=== PATIENT | male | born 1940 | race Caucasian/White ===

== ENCOUNTER 2023-03-22 22:00 | Inpatient (IN) | payer MEDICARE, OTHER, SELFPAY ==
[2023-03-22 18:23] VITALS: BP 109/51
[2023-03-22 19:26] LABS: % Basophils 0.5 % (0-2); % Eosinophils 7.2 % (0-6); % Immature Granulocytes 0.6 % (0-0.5); % Lymphocytes 6.6 % (20.5-51.1); % Neutrophils 78.1 % (42.2-75.2); Absolute Eosinophils 0.6 10^3/uL (0-0.7); Absolute Immature Granulocytes 0.1 10^3/uL (0-0.05); Absolute Lymphocytes 0.6 10^3/uL (1.2-3.4); Absolute Monocytes 0.6 10^3/uL (0.1-0.6); Absolute Neutrophils 6.7 10^3/uL (1.4-6.5); Hematocrit 37.4 % (39.0-52.0); Mean Corp Hgb Conc. 34.8 g/dL (33.0-37.0); Mean Corpuscular Hgb 33.3 pg (27.0-31.0); Mean Corpuscular Volume 95.9 fL (80.0-94.0); Nucleated Red Blood Cells % 0 % (-); Platelet Count 174 10^3/uL (130-400); White Blood Cell Count 8.5 10^3/uL (4.8-10.8)
[2023-03-22 19:36] VITALS: BP 117/68
[2023-03-22 19:43] LABS: APTT 42.1 Sec (23.4-35.0); INR 2.36; PT 26.2 Sec (11.4-14.6)
[2023-03-22 19:52] LABS: ALT (SGPT) 33 U/L (0-50); AST (SGOT) 35 U/L (17-59); Albumin 4.3 g/dl (3.5-5.0); Alkaline Phosphatase 119 U/L (38-126); Blood Urea Nitrogen 45 mg/dl (9-20); Calcium 8.8 mg/dl (8.4-10.2); Carbon Dioxide 24 mmol/L (22-30); Chloride 102 mmol/L (98-107); Glomerular Filtration Rate 38.6; Glucose 126 mg/dl (70-99); Potassium 4.1 mmol/L (3.5-5.1); Sodium 138 mmol/L (135-145); Total Bilirubin 1.2 mg/dl (0.2-1.3)
[2023-03-22 20:11] VITALS: BMI 23.6
--- NOTE | 2023-03-22 20:17 | ED.GENMED ---
History of Present Illness
General
Chief Complaint: Musculo-Skeletal Complaint
Source: patient
Exam Limitations: none
Time Seen by Provider: 03/22/23 19:35
Travel History
Have you had any contact with someone who has COVID-19?: No
Do you have any symptoms of coronavirus? Fever > 100 degrees, chills, cough, shortness of breath, sore throat, loss of taste or smell, muscle aches, or headache?: No
History of Present Illness
History of Present Illness:
This is a 82 year old male that comes in with c/o right knee pain. State that he was here with knee pain on March 09. States that they did X-rays and was told to follow up with the exterior interior specialist. Patient saw Dr Bautista and he is to have
a knee replacement on April. States that today he started with right knee pain and he can't bend the knee. Denies any falls or injury to the leg. States that he is always dizzy. Denies any fever, chills, chest pain, SOB, abd pain, nausea,
vomiting, diarrhea, headache, urinary burning.
Past History
Past History
ED Past Medical History: Arrthythmia (afib) and Other (BPH)
ED Past Surgical History: Orthopedic (Left knee replacement, right hip replacement. Right shoulder surgery) and Other (hernia sx)
Social History
Tobacco: Non-smoker
Alcohol: Occasional
Drug: None
Personal:
Living: with family
Employment: Retired
Family History
Family History: Other (n/c)
Review of Systems
Review of Systems
All Other Systems: ROS reviewed and negative except as documented in HPI and ROS
Constitutional: Reports no symptoms; Denies fever or chills
EENT: Reports no symptoms
Respiratory: Denies cough or trouble breathing
Cardiac: Reports no symptoms; Denies chest pain
ABD/GI: Denies abdominal pain, nausea, vomiting or diarrhea
: Reports no symptoms; Denies dysuria, frequency or urgency
Musculoskeletal: Reports joint pain (Right knee pain with leg swelling)
Skin: Reports no symptoms
Neurological: Reports dizzy; Denies headache
Psychiatric: Reports no symptoms
Phy Exam
General Physical Exam
General Presentation: no apparent distress
General age: appears stated age
General Skin: warm and dry
General Habitus: elderly
General Mental: alert
General Hydration: appears well hydrated
ENT Exam
ENT Exam: TM's normal, pharynx normal and neck supple
Eye Exam
Eye Exam: EOMI
Cardiovascular Exam
Cardiovascular Exam: normal peripheral pulses, irregularly irregular and other (Murmur)
Pulmonary Exam
Pulmonary Exam: lungs clear, no respiratory distress, no rales, chest non tender, no crackles, no rhonchi, no wheezing and no cough
Gastrointestinal Exam
Gastrointestinal Exam: normal bowel sounds, non tender, soft, no organomegaly, no pulsatile mass and non distended
Musculoskeletal Exam
Musculoskeletal Exam: joint swelling (Right knee swelling into thigh. ) and other (Effusion palpable)
Skin Exam
Skin Exam: other (Contusion on the medial and lateral thigh down to knee with posterior contusion passing the right knee)
Psychiatric Exam
Psychiatric Exam: normal mood/affect
Course
Orders/Labs/Results
Orders:
Orders
03/22/23 18:26
CR Knee - Right 1 Or 2 Views Urgent
Comment:
Reason For Exam: pain, swelling, decreased ROM
03/22/23 19:19
Complete Blood Count/With Diff Urgent
Comprehensive Metabolic Panel Urgent
PTT Urgent
Prothrombin Time Urgent
03/22/23 20:16
US Periph Venous LOWER Ext RT Urgent
Comment:
Reason For Exam: Swelling contusions
Abnormal Lab Results
03/22/23
19:19
RBC 3.90 L 10^6/uL
(4.70-6.10)
Hct 37.4 L %
(39.0-52.0)
MCV 95.9 H fL
(80.0-94.0)
MCH 33.3 H pg
(27.0-31.0)
RDW 15.0 H %
(11.5-14.5)
Abs Immat Gran (auto) 0.1 H 10^3/uL
(0-0.05)
Absolute Neuts (auto) 6.7 H 10^3/uL
(1.4-6.5)
Absolute Lymphs (auto) 0.6 L 10^3/uL
(1.2-3.4)
Immature Gran % 0.6 H %
(0-0.5)
Neutrophils % 78.1 H %
(42.2-75.2)
Lymphocytes % 6.6 L %
(20.5-51.1)
Eosinophils % 7.2 H %
(0-6)
PT 26.2 H Sec
(11.4-14.6)
APTT 42.1 H Sec
(23.4-35.0)
BUN 45 H mg/dl
(9-20)
Creatinine 1.7 H mg/dL
(0.7-1.3)
Glucose 126 H mg/dl
(70-99)
03/22/23 19:19
03/22/23 19:19
Anemia, PT 26.2 with INR 2.36, PTT 42.1, Chronic renal insufficiency, Glucose nonfasting.
Vital Signs
Initial and Last Documented VS:
Initial Vital Signs
Temp Pulse Resp BP Pulse Ox
97.7 F 72 16 109/51 99
03/22/23 18:23 03/22/23 18:23 03/22/23 18:23 03/22/23 18:23 03/22/23 18:23
Last Documented Vital Signs
Temp Pulse Resp BP Pulse Ox
97.7 F 71 20 117/68 98
03/22/23 19:36 03/22/23 19:36 03/22/23 19:36 03/22/23 19:36 03/22/23 20:13
MDM/Problems Addressed
Differential Diagnosis Includes:
right knee effusion. Compartment syndrome
MDM/Problems Addressed:
This is a 82 year old male that comes in with c/o right knee pain and swelling. Patient states that the leg is not only swollen but he has bruising of the entire thigh.
Will get labs. X-ray and US.
Back into see patient. Explained that the US is negative for DVT. His X-rays of the knee shows the arthritis and an effusion. Unsure why patient has significant contusion of the leg. Explained that since he is own Coumadin it would not be advised to
drain the knee at this time. He will be admitted for further evaluation. Hospitalist and Orthopedics notified.
Chronic conditions affecting care: Other (atrial fib on blood thinners)
Acute Exacerbation and/or Progression of Chronic Illness:
NA
*Radiology
Radiology exam reviewed: radiology read reviewed (US=No sonographic evidence for right lower extremity deep venous thrombosis Knee X-ray-No acute fracture or dislocation. Severe arthrosis of the right knee with meniscal chondrocalcinosis. Moderate
knee joint effusion. )
*Pulse Oximetry
Patient hypoxic: no
*EKG
Interpreted by ED Provider?: NA
Rate: EKG- N/A
*Supervisor Files Interpretation
Rate: Supervisor Files- N/A
*Critical Care Note
Total Time (30-74mins, 75-104mins- exclusive of procedures): Not Applicable
ED Attending Note
-
Portions of this chart may have been created with voice recognition software.� Occasional wrong word or��sound alike� substitutions may have occurred due to the inherent limitations of voice recognition software.
Discharge Plan
Departure
Patient Disposition: Admit
Date of Disposition: 03/22/23
Time of Disposition: 21:07
Admit to: Med/Surg
Presentation/result/management discussed w/ accepting MD/DO: Hospitalist
Patient with high blood pressure during this ER visit?: No
Condition: Good
Covid-19: Not Applicable
Discharge Problem:
Acute pain of right knee, Effusion of right knee, Severe contusion right thigh, Ambulatory dysfunction
Prescriptions:
No Action
diltiazem HCl [Cartia XT] 180 MG capsule,extended release 24hr
180 mg PO DAILY
warfarin [Jantoven] 4 MG tablet
2 mg PO .EVERYOTHER DAY
furosemide 20 MG tablet
20 mg PO PRN PRN (Reason: LEG SWELLING)
loratadine 10 MG tablet
10 mg PO DAILY
dutasteride 0.5 MG capsule
0.5 mg PO DAILY
alfuzosin 10 MG tablet extended release 24 hr
10 mg PO DAILY
mesalamine [Apriso] 0.375 GM capsule,extended release 24hr
4 cap PO DAILY
[id number] [Centrum Silver Men] 1 EACH tablet
1 ea PO DAILY
Fluticasone Propionate
50 mg inhalation DAILY
Patient Comments:
2 SPRAYS DAILY
Probiotic Colon Support
1 tab PO DAILY
warfarin [Jantoven] 4 MG tablet
4 mg PO Q48H
Patient Comments:
pt alternates every other day with Coumadin 2mg.
doxycycline hyclate 100 MG capsule
100 mg PO Q12 Qty: 14 0RF
oxycodone 5 mg capsule
5 mg PO Q6H PRN (Reason: Pain) Qty: 10 0RF
Referrals:
NONE,* [Active] -
Interventions
Interventions:
*Risk Screen - Suicide Last Done: 03/22/23 18:23
*General Assessment Last Done: 03/22/23 19:39
*Neglect/Abuse Screening Last Done: 03/22/23 18:23
ED- Fall Risk Assessment Last Done: 03/22/23 19:52
*ED COVID-19 Vaccine History Last Done: 03/22/23 18:23
ED-Musculoskeletal Assessment Last Done: 03/22/23 19:40
--- NOTE | 2023-03-22 21:25 | HPS.HSE ---
Addendum entered and electronically signed by Robert Carrera DO 03/22/23 22:38:
Patient seen and examined independently. Agree with findings and plan as set forth by SYD Gilliam.
Patient is an 82y M with PMH significant for A-Fib and BPH who presents to ED complaining of R knee pain and swelling. Patient states that he drove a long distance (> 140 miles) 2 weeks ago and his pain started shortly thereafter. He denies any
fall, injury, trauma, etc. He was seen here in the ED on 03/06 and referred to Ortho. Patient was seen in the Ortho office and notes that he had a 'shot' in the R knee - not certain whether this was steroid or just pain medication. He was told
that he would need a TKA and this was scheduled for April.
He states that his symptoms have progressed regardless and he presented to the ED this evening for evaluation.
He states that he cannot stand / bear weight without significant pain.
Ass:
Right Knee Pain
DJD / Joint Effusion
Permanent Atrial Fibrillation
RAMAKRISHNA on CKD III
BPH
DM-II
Chronic HFpEF
Ulcerative Colitis
Plan:
Admit for further evaluation and treatment.
Continue efforts at pain control.
No fever, leukocytosis, etc to suggest septic arthritis.
Ortho consulted for evaluation in the AM.
Hold further Coumadin acutely given ecchymosis.
Follow for clinical improvement.
PT / OT evaluations.
No evidence of volume overload on exam.
Hold Farxiga and decrease furosemide by 1/2.
Follow for improvement in renal function.
Monitor I/Os, daily weights, etc.
Continue other home medications.
Original Note:
Family Physician
-
Family Physician: Roby Coffman DO
Chief Complaint
-
right knee pain
History of Present Illness
82 year old male with PMH for atrial fib, BPH, UTI presented to us with right knee pain ,swelling for past 12 days. patient was evaluated in ER on 03/06/2023 and was asked to follow up with orthopedics as outpatient. Patient saw Dr Bautista and he
is to have a knee replacement on April. States that today he started with right knee pain and he can't bend the knee. he took Tylenol with no relief in his symptoms. Denies any falls or injury to the leg. bruising on his right thigh for past
1 2days. Denies any fever, chills, chest pain, SOB, abd pain, nausea, vomiting, diarrhea, headache, urinary burning. patient finished the course of abx for UTI today.
admitting for further management.
Medical History
Past Medical History
Past Medical History: Reports Other
Additional Past Medical History:
BPH
atrial fib
Past Surgical History: Reports Other
Additional Past Surgical History:
left knee replacement
right hip replacement
right shoulder surgery
hernia surgery
Social History
Tobacco: Former Smoker
Alcohol: None
Drug: None
Family History
Family History: Not pertinent
Allergies / Home Medications
Allergies reflects when Allergies were last updated in [facility].
Home Medications with original date entered in [facility]
Allergy/Medication List:
Allergies
Allergy/AdvReac Type Severity Reaction Status Date / Time
adhesive tape Allergy Rash Verified 03/06/23 10:57
enviromental allergies Allergy Unknown Uncoded 03/06/23 10:57
Home Medications
Fluticasone Propionate 50 mg inhalation DAILY 04/30/17
diltiazem HCl 180 mg capsule,extended release 24 hr (Cartia XT) 180 mg PO DAILY 04/30/17
dutasteride 0.5 mg capsule 0.5 mg PO DAILY 04/30/17
loratadine 10 mg tablet 10 mg PO DAILY 04/30/17
mesalamine 0.375 gram capsule,extended release 24 hr (Apriso) 4 cap PO DAILY 04/30/17
warfarin 4 mg tablet (Jantoven) 2 mg PO .EVERYOTHER DAY 04/30/17
warfarin 4 mg tablet (Jantoven) 4 mg PO Q48H anticoag 05/01/17
cyanocobalamin (vitamin B-12) 1,000 mcg tablet 1,000 mcg PO DAILY 03/22/23
dapagliflozin propanediol 10 mg tablet (Farxiga) 10 mg PO DAILY 03/22/23
furosemide 80 mg tablet 80 mg PO BID 03/22/23
sildenafil 25 mg tablet 25 mg PO DAILY PRN intercourse 03/22/23
spironolactone 25 mg tablet 25 mg PO DAILY 03/22/23
tamsulosin 0.4 mg capsule 0.4 mg PO DAILY 03/22/23
vitamins A,C,Y-yqxo-qjvwzf 2,148 mcg-113 mg-45 mg-17.4 mg tablet (PreserVision AREDS) 1 tab PO BID 03/22/23
Review of Systems
-
Constitutional: Reports No Symptoms
EENT: Reports No Symptoms
Respiratory: Reports No Symptoms
Cardiac: Reports No Symptoms
Abdomen/GI: Reports No Symptoms
: Reports No Symptoms
Musculoskeletal: Reports Joint Pain (right knee pain, swelling)
Skin: Reports No Symptoms
Neurological: Reports No Symptoms
Endocrine: Reports No Symptoms
Hematologic/Lymphatic: Reports No Symptoms
Psych: Reports No Symptoms
Physical Exam
Vital Signs
Vital Signs
Temp Pulse Resp BP Pulse Ox
97.7 F 71 20 117/68 98
03/22/23 19:36 03/22/23 19:36 03/22/23 19:36 03/22/23 19:36 03/22/23 20:13
Physical Exam
General: Well Developed, Well Nourished and No Apparent Distress
HEENT: NormoCephalic, Moist mucous membranes and Atraumatic
Respiratory: Clear
Cardiac: S1/S2 and Regular Rhythm; No Murmur or Rub
GI: Soft, Non Tender, Non Distended and Normal Bowel Sounds; No Organomegaly
Rectal: Deferred by Provider
Musculoskeletal: No Clubbing, No Cyanosis, No Edema and Other (right knee swelling, brusising pain)
Skin: No Rash
Neuro: AO x 3 and Nonfocal/grossly intact
Psych: Calm
Laboratory Results
-
03/22/23 19:19
03/22/23 19:19
Laboratory Results
PT 26.2 Sec (11.4-14.6) H 03/22/23 19:19
INR 2.36 03/22/23 19:19
APTT 42.1 Sec (23.4-35.0) H 03/22/23 19:19
Total Bilirubin 1.2 mg/dl (0.2-1.3) 03/22/23 19:19
AST 35 U/L (17-59) 03/22/23 19:19
ALT 33 U/L (0-50) 03/22/23 19:19
Alkaline Phosphatase 119 U/L (38-126) 03/22/23 19:19
Data Reviewed
-
CT Scan: Report Reviewed by me
Lab Data: Labs Reviewed by me
Impression/Plan
-
#right knee pain/ambulatory dysfunction/effusion
-US LE with No sonographic evidence for right lower extremity deep venous thrombosis.
-knee x ray with No acute fracture or dislocation.Severe arthrosis of the right knee with meniscal chondrocalcinosis.Moderate knee joint effusion.
-oxy prn for pain
-orthopedics consulted
#acute kidney injury on CKD stage 3
-cr 1.7
-ctm
#Atrial fibrillation unknown type
=INR 2.36
-hold Coumadin
-cartia continued
-obtain EKG
# Benign prostatic hypertrophy
-We will continue the Avodart and Flomax
#Type 2 Dm
-hold Farxiga
-siding scale
#hxt of CHF
-not in acute exacerbation
--Lasix 40mg bid instead of 80mg bid
-spironolactone continued
-daily weight
-strict I &O
# Ulcerative colitis. We will continue the mesalamine.
#DVT prophylaxis
-scd
#CODE status
-DNR
[2023-03-22] MEDS: PERCOCET 5/325 1 TABLET PO (22:01)
[2023-03-22] MEDS: ZOFRAN ODT (ORALLY DISINTEGRATING) 4 MG PO (22:02)
[2023-03-22 22:05] VITALS: BP 117/64
[2023-03-22 23:08] VITALS: BMI 23.3
[2023-03-22 23:10] VITALS: BP 141/68
[2023-03-23 03:37] VITALS: BP 109/51
[2023-03-23 03:44] VITALS: BMI 23.3
[2023-03-23 07:08] LABS: INR 2.75; PT 29.5 Sec (11.4-14.6)
[2023-03-23 07:13] LABS: Hemoglobin 11.1 g/dL (13.0-18.0); Mean Corp Hgb Conc. 34.7 g/dL (33.0-37.0); Mean Corpuscular Hgb 34.6 pg (27.0-31.0); Mean Corpuscular Volume 99.7 fL (80.0-94.0); Mean Platelet Volume 9.6 fL (7.4-10.4); Platelet Count 161 10^3/uL (130-400); Red Blood Cell Count 3.21 10^6/uL (4.70-6.10); Red Cell Dist. Width 14.8 % (11.5-14.5); White Blood Cell Count 7.3 10^3/uL (4.8-10.8)
[2023-03-23 07:17] LABS: Glucose - Point of Care 115 mg/dl (70-99)
[2023-03-23 07:19] VITALS: BP 112/49
[2023-03-23] MEDS: ROXICODONE 5 MG PO ×2 (07:26→15:11)
[2023-03-23 07:32] LABS: Blood Urea Nitrogen 41 mg/dl (9-20); Calcium 8.4 mg/dl (8.4-10.2); Carbon Dioxide 23 mmol/L (22-30); Chloride 105 mmol/L (98-107); Estimated Creatinine Clearance 38 ml/min; Glomerular Filtration Rate 44.6; Glucose 88 mg/dl (70-99); HDL Cholesterol 40 mg/dl; LDL Cholesterol, Calculated 73 mg/dl; Potassium 4.1 mmol/L (3.5-5.1); Sodium 138 mmol/L (135-145); Total Cholesterol 123 mg/dl (50-199); Triglyceride 54 mg/dl (10-149); Very Low Density Lipoprotein 10 mg/dl (0-30)
--- NOTE | 2023-03-23 07:48 | W.PN.UPDATE ---
Update Note
Progress Note Update
Pt seen and chart reviewed
I attempted aspiration but only very small amount of dark blood obtained
I suspect clotted knee joint hematoma (suspect secondary to Coumadin)
I spoke with his surgeon Dr. Bautista as he has upcoming TKR in April
Dr. Bautista requests conservative tx---PT with A/P ROM exercises, hold anticoagulants, have F/U with Dr. Bautista upon DC
Thanks
GGMD
[2023-03-23 08:42] LABS: Glycohemoglobin (HgbA1c) 5.4 % (4.0-5.6)
[2023-03-23] MEDS: CARDIZEM CD 180 MG PO (08:56)
[2023-03-23] MEDS: PROSCAR 5 MG PO (08:56)
[2023-03-23] MEDS: FLOMAX 0.400000000000000022 MG PO (08:56)
[2023-03-23] MEDS: OCUVITE SOFTGEL 1 CAP PO (08:56)
[2023-03-23] MEDS: ALDACTONE 25 MG PO (08:57)
[2023-03-23] MEDS: LASIX 40 MG PO ×2 (08:57→15:12)
--- NOTE | 2023-03-23 09:56 | CON.CAR ---
Addendum entered and electronically signed by Darinel Mcdermott MD 03/23/23 16:16:
82 yo male with PMH of permanent A fib on warfarin admitted with right knee effusion--hemorrhagic. We are consulted for warfarin management. Patient offers no cardiac complaints. Exam with irregular rhythm, III/ systolic murmur at apex, + edema
of right knee. Tele: A fib 70s.
I discussed the management with orthopedics and internal medicine. We will hold warfarin for 4 days, the resume. There is an eventual plan for TKA. He reports he has office follow up with us this week.
Original Note:
Consultation
Consultation Request
Date/Time Consultation Requested: 03/23/23816
Date/Time Consultation Performed: 03/23/23939
Requesting Provider: Dr. Joseph
Performing Provider: Cydney VELARDE for Dr. Mcdermott
Reason for Consultation: AFIB on warfarin, with knee joint hematoma
Medical History
-
Chief Complaint: Right knee swelling, pain, ecchymosis
History of Present Illness:
82 y/o male with permanent AFIB on warfarin, HFpEF, moderate to severe TR, and OA right knee with plan for upcoming surgery (right knee replacement April [address] Bautista). 13 days ago, he was driving back from [place], [place] and noted
that his RLE was stiff, painful, swollen. He went to the orthopedic office and had an injection 03/07/23. He has noted continued pain, swelling, ecchymosis and returned to the ER, where XR showed moderate knee joint effusion. He has lost about 30 lbs
over the past 6 months with lower appetite and is looking into this with his PCP. He also has CKD and follows with nephrology. He has thrombocytopenia and saw heme, but platelets currently WNL.
Past Medical History
Past Medical History: Arrhythmias (permanent AFIB), CHF (HFpEF) and Valvular Disease (moderate to severe TR)
Social History
Tobacco: Non-Smoker
Alcohol: Occasional
Family History
Family History: Reviewed & Not Pertinent
Allergies / Home Medications
Allergy/AdvReac Type Severity Reaction Status Date / Time
adhesive tape Allergy Rash Verified 03/06/23 10:57
enviromental allergies Allergy Unknown Uncoded 03/06/23 10:57
Medication Instructions Recorded Confirmed Type
diltiazem HCl 180 mg 180 mg PO DAILY 04/30/17 03/22/23 History
capsule,extended release 24 hr
(Cartia XT)
dutasteride 0.5 mg capsule 0.5 mg PO DAILY 04/30/17 03/22/23 History
fluticasone propionate 50 1 spray intranasal DAILY ##0 04/30/17 03/22/23 History
mcg/actuation nasal
spray,suspension
loratadine 10 mg tablet 10 mg PO DAILY 04/30/17 03/22/23 History
mesalamine 0.375 gram 1.5 g PO DAILY 04/30/17 03/22/23 History
capsule,extended release 24 hr
(Apriso)
warfarin 4 mg tablet (Jantoven) 2 mg PO TUTHSA 04/30/17 03/22/23 History
warfarin 4 mg tablet (Jantoven) 4 mg PO SUMOWEFR anticoag 05/01/17 03/22/23 History
cyanocobalamin (vitamin B-12) 1,000 mcg PO DAILY 03/22/23 03/22/23 History
1,000 mcg tablet
dapagliflozin propanediol 10 mg 10 mg PO DAILY 03/22/23 03/22/23 History
tablet (Farxiga)
furosemide 80 mg tablet 80 mg PO BID 03/22/23 03/22/23 History
sildenafil 25 mg tablet 25 mg PO DAILY PRN intercourse 03/22/23 03/22/23 History
spironolactone 25 mg tablet 25 mg PO DAILY 03/22/23 03/22/23 History
tamsulosin 0.4 mg capsule 0.4 mg PO DAILY 03/22/23 03/22/23 History
vitamins A,C,P-zuie-yautdw 2,148 1 tab PO BID 03/22/23 03/22/23 History
mcg-113 mg-45 mg-17.4 mg tablet
(PreserVision AREDS)
Review of Systems
-
History Source: Patient
All other systems: Negative unless noted
Constitutional: Weight Loss
Musculoskeletal: Joint Pain and Joint Swelling
Physical Exam
Vital Signs
Temp Pulse Resp BP Pulse Ox
97.7 F 67 18 112/49 99
03/23/23 07:19 03/23/23 08:56 03/23/23 07:19 03/23/23 08:57 03/23/23 07:19
Lab Results
03/23/23 05:44
03/23/23 05:44
Physical Exam
General: Well Developed and No Apparent Distress
HEENT: Normocephalic and Anicteric
Respiratory: Clear and Non Labored Respirations
Cardiac: Irregular Rhythm
Musculoskeletal: Other (knee swelling)
Skin: Warm, Dry and Other (RLE with ecchymosis, swelling of knee)
Neuro: AO x 3
Psych: Calm
Impression / Plan
-
Knee pain, swelling, effusion, ecchymosis:
-denies any recent trauma, known OA, recent injection as noted
-Management per ortho. Dr. Hernández's note reviewed- aspiration attempted, but only very small amount of dark blood obtained and he suspected clotted knee joint hematoma. Patient has surgery planned Apr 19 and surgeon requests conservative
management, which includes holding anticoagulants for now.
Permanent AFIB:
-stable, rate-controlled
-continue diltiazem
-patient on warfarin and checks levels weekly and reports INR's within range. Warfarin now held for above. Will need to discuss plan with ortho regarding warfarin hold time as above. His [id number] score is 3 for age and CHF.
HFpEF:
-appears euvolemic
-remains on spironolactone, Farxiga, and furosemide
-no SOB
Data Reviewed
-
EKG: Tracing Personally Visualized and interpreted (AFIB 68 BPM 05/06/22) and Other (updated EKG ordered.)
Radiology: Report Reviewed by me (knee XR: Severe arthrosis of the right knee with meniscal chondrocalcinosis, Moderate knee joint effusion.)
Medical Tests (Nuc Med, Echo etc): Report Reviewed by me (echo 04/12/22: Normal biventricular size and systolic function without regional wall motion abnormality. Estimated LVEF 55-60%. Enlarged right ventricular size. Normal right ventricular
systolic function. Moderate/severe tricuspid regurgitation. Normal PASP. Severely dilated right atrium. Modera) and Other (stress echo 12/07/22: No ECG or echocardiographic evidence of myocardial ischemia to 7 METS and 80% max. predicted heart
rate. Low risk stress echocardiogram. Normal LVEF. No prior study available for comparison.)
Labs: Labs Reviewed by me
[2023-03-23 10:20] VITALS: BP 85/69; BP 95/54; PULSE 79; PULSE 86; O2SAT 100
[2023-03-23 11:15] VITALS: BP 103/49
[2023-03-23 12:20] LABS: Glucose - Point of Care 97 mg/dl (70-99)
[2023-03-23 12:50] VITALS: BP 85/69; BP 95/54; PULSE 75; PULSE 86
--- NOTE | 2023-03-23 14:51 | CM ---
CM reviewed medical records. CM met with patient in room. Patient confirmed demographics. Patient lives with in a single story home in a [place] and [place] community. Patient has had a history of VN after a previous TKR. Patient has been at [facility] and
stated that he signed out AMA. Patient has a cane and walker for ambulation at home. Patient is active with his PCP. Patient's uses [facility] for medication services.
PLAN: home with outpatient PT.
[2023-03-23 16:15] VITALS: BP 110/47
--- NOTE | 2023-03-23 16:56 | W.PN.HOSP.TC ---
Addendum entered and electronically signed by Ildefonso Joseph MD 03/23/23 17:54:
Correction: patient mentioned that he does NOT have Diabetes Mellitus
Original Note:
Today's Communication/Plan
-
Discharge today
Assessment / Plan
Assessment / Plan
Physical Exam
General: Well Developed and No Apparent Distress
HEENT: Normocephalic and Anicteric
Respiratory: Clear and Non Labored Respirations
Cardiac: Irregular Rhythm
Musculoskeletal: Other (right knee swelling with band-aid/dressing present). Distal RLE pulses intact and 2+.
Skin: Warm, Dry and Other (RLE with ecchymosis, swelling of knee)
Neuro: AO x 3
Psych: Calm
Assessment/Plan
#Right knee pain, swelling, effusion, ecchymosis and suspected right knee hematoma (hematoma suspected to be secondary to Coumadin)
-denies any recent trauma, known OA, recent injection as noted
-ultrasound of the right lower extremity with no sonographic evidence for right lower extremity deep venous thrombosis.
-Management per ortho, follow-up with orthopedics surgeon outpatient. Dr. 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
hematoma. Dr. Romulo Bautista (patient's orthopedic's surgeon) recommended no surgery (to drain hematoma) at this time due to high recurrence and upcoming total knee replacement on April 19, 2023, and surgeon
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
-Please see Dr. Romulo Bautista in the next 2 to 3 days
#Permanent Atrial Fibrillation
-stable, rate-controlled
-continue diltiazem
-patient on warfarin and checks levels weekly and reports INR's within range. Warfarin now held for above. Will need to discuss plan with ortho regarding warfarin hold time as above. His [id number] score is 3 for age
and CHF.
-Follow-up with Dr. Mcdermott's office outpatient
#Heart Failure with Preserved Ejection Fraction
-Euvolemic at this time
-Continue spironolactone, Farxiga
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
#Acute Kidney Injury on Chronic Kidney Disease Stage 3
-Please recheck your Basic Metabolic Labs outpatient in the next 2 to 3 days
# Benign prostatic hyperplasia
-Continue the Avodart and Flomax
#Type 2 Diabetes Mellitus
-Continue Farxiga
#Ulcerative Colitis
-Continue Mesalamine
More than 30 minutes spent in discharge including
Final examination of the patient
Summarizing hospital stay
Instructions for continuing care to all relevant caregivers
Preparation of discharge records, prescriptions, and referral forms
Total time spent (in minutes): 38
Anticipated Discharge: Today
Subjective/Interval History
-
Date of Service: March 23, 2023
Objective Data
-
Labs:
Laboratory Results
03/23/23
05:44
WBC 7.3
Hgb 11.1 L
Hct 32.0 L
Plt Count 161
PT 29.5 H
INR 2.75
Sodium 138
Potassium 4.1
Chloride 105
Carbon Dioxide 23
BUN 41 H
Creatinine 1.5 H
Glucose 88
Calcium 8.4
Vital Signs:
Vital Signs
Temp Pulse Resp BP Pulse Ox
97.8 F 69 14 110/47 93
03/23/23 16:15 03/23/23 16:15 03/23/23 16:15 03/23/23 16:15 03/23/23 16:15
I&O
03/22/23 03/23/23 03/24/23
06:59 06:59 06:59
Intake Total 1200 / 1200
Output Total 200 / 200
Balance 1000 / 1000
--- NOTE | 2023-03-23 18:05 | W.DS.TRANS ---
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
-
Discharge Instructions:
Discharge Diagnosis/Procedures #Right knee pain, swelling, effusion, ecchymosis
and suspected right knee hematoma (hematoma
suspected to be secondary to Coumadin)
#Permanent Atrial Fibrillation
#Heart Failure with Preserved Ejection Fraction
#Acute Kidney Injury on Chronic Kidney Disease
Stage 3
#Benign prostatic hyperplasia
#Ulcerative Colitis
Diet Low Cholesterol,Low Fat,2 Gram Sodium,As
tolerated
Other Services PT
Specialty Instructions Weigh Daily
Instructions:
Stand-Alone Forms:
Changes to Home Medications: Yes
Discharge Medications:
DC Medications w/original date entered in [facility]
diltiazem HCl 180 mg capsule,extended release 24 hr (Cartia XT) 180 mg PO DAILY 04/30/17
dutasteride 0.5 mg capsule 0.5 mg PO DAILY 04/30/17
fluticasone propionate 50 mcg/actuation nasal spray,suspension 1 spray intranasal DAILY ##0 04/30/17
loratadine 10 mg tablet 10 mg PO DAILY 04/30/17
mesalamine 0.375 gram capsule,extended release 24 hr (Apriso) 1.5 g PO DAILY 04/30/17
warfarin 4 mg tablet (Jantoven) 2 mg PO TUTHSA 04/30/17
warfarin 4 mg tablet (Jantoven) 4 mg PO SUMOWEFR anticoag 05/01/17
cyanocobalamin (vitamin B-12) 1,000 mcg tablet 1,000 mcg PO DAILY 03/22/23
dapagliflozin propanediol 10 mg tablet (Farxiga) 10 mg PO DAILY 03/22/23
sildenafil 25 mg tablet 25 mg PO DAILY PRN intercourse 03/22/23
spironolactone 25 mg tablet 25 mg PO DAILY 03/22/23
tamsulosin 0.4 mg capsule 0.4 mg PO DAILY 03/22/23
vitamins A,C,P-nlxh-dvwtkq 2,148 mcg-113 mg-45 mg-17.4 mg tablet (PreserVision AREDS) 1 tab PO BID 03/22/23
furosemide 80 mg tablet 40 mg PO BID #0 tabs 03/23/23
oxycodone 5 mg tablet 5 mg PO Q6HPRN PRN severe pain #7 tabs 03/23/23
Home Medication Changes
New Medications
Oxycodone
Dose Changed for the Following Medication
Furosemide decreased to 40 mg BID from 80 mg BID
Holding Until March 27, 2023
Warfarin
Pending Results: No
Total time spent discharging patient (in min): 38
--- NOTE | 2023-03-24 10:57 | CM ---
CM noted patient was discharged last evening.
Home.
--- NOTE | 2023-03-26 09:08 | W.DCSUMMARY ---
Discharge Summary
Discharge Data
Date of Admission: 03/22/23
Date of Discharge: 03/23/23
Total time spent discharging patient (in min): 38
-
Pending Results: No
Hospital Course
82 y/o male with past medical history of chronic heart failure with preserved ejection, atrial fibrillation and ulcerative colitis presented with right knee pain. Patient's right knee was noted to be swollen with bruising. His Coumadin was held.
Orthopedics and cardiology were consulted, based on their recommendations, Coumadin would be held for a total of 4 days. Orthopedics attempted aspiration, but only very small amount of dark blood was obtained and orthopedics then suspected clotted
knee joint. Dr. Romulo Bautista (patient's orthopedic's surgeon) recommended no surgery (to drain hematoma) at this time due to high recurrence and upcoming total knee replacement on April 19, 2023, and the surgeon also requested conservative
management, which included holding anticoagulants/Coumadin for 3 more days (for a total of 4 days) and then resume it.
Discharge Plan
-
Patient Disposition: Home (Routine Discharge)
Discharge Diagnosis/Procedures: #Right knee pain, swelling, effusion, ecchymosis and suspected right knee hematoma (hematoma suspected to be secondary to Coumadin)
#Permanent Atrial Fibrillation
#Heart Failure with Preserved Ejection Fraction
#Acute Kidney Injury on Chronic Kidney Disease Stage 3
#Benign prostatic hyperplasia
#Ulcerative Colitis
Diet: As tolerated, Low Fat, Low Cholesterol and 2 Gram Sodium
Other Services: PT
Specialty Instructions: Weigh Daily- Call MD for wt gain/loss 3 lbs overnight/5 lbs in 1 week
Referrals:
Roby Coffman, [Family Provider] - in two to three days
Cam Tiwari MD [Active] - 03/24/23 2:40 pm (please keep this appointment as planned!)
Prescriptions:
New
oxycodone 5 mg Tablet
5 mg PO Q6HPRN PRN (Reason: severe pain) Qty: 7 0RF
Continued
diltiazem HCl [Cartia XT] 180 MG capsule,extended release 24hr
180 mg PO DAILY
fluticasone propionate 50 mcg/actuation [place],Suspension
1 spray INTRANASAL DAILY Qty: 0
Patient Comments:
2 SPRAYS DAILY
loratadine 10 MG tablet
10 mg PO DAILY
dutasteride 0.5 MG capsule
0.5 mg PO DAILY
mesalamine [Apriso] 0.375 GM capsule,extended release 24hr
1.5 g PO DAILY
cyanocobalamin (vitamin B-12) 1,000 mcg tablet
1,000 mcg PO DAILY
sildenafil 25 mg tablet
25 mg PO DAILY PRN (Reason: intercourse)
spironolactone 25 mg tablet
25 mg PO DAILY
tamsulosin 0.4 mg capsule
0.4 mg PO DAILY
PreserVision AREDS 2,148 mcg-113 mg-45 mg-17.4mg Tablet
1 tab PO BID
Farxiga 10 mg tablet
10 mg PO DAILY
Changed
furosemide 80 mg tablet
40 mg PO BID Qty: 0 0RF
Held
warfarin [Jantoven] 4 MG tablet
2 mg PO TUTHSA
Hold Instructions: Resume on 03/27/23.
warfarin [Jantoven] 4 MG tablet
4 mg PO SUMOWEFR
Hold Instructions: Resume on 03/27/23.
Patient Comments:
pt alternates every other day with Coumadin 2mg.
Discharge Orders:
Discharge Patient (As Directed); Ordered 03/23/23
Ordered By: Ildefonso Joseph
Discharge Date and Time
Discharge Date/Time: 03/23/23 18:39
== END 2023-03-23 18:39 | disposition home or self-care (01) | DRG 813 ==
LOC: 2 NORTH 22:00
PROVIDERS: Emergency Medicine; Registered Nurse; ADMITTING PHYSICIAN Hospitalist; ATTENDING PHYSICIAN Hospitalist; CONSULT PHYSICIAN Internal Medicine; CONSULT PHYSICIAN Orthopaedic Surgery Hand Surgery; EMERGENCY PHYSICIAN Emergency Medicine; FAMILY PHYSICIAN Family Medicine
DX: D68.32 Hemorrhagic disorder due to extrinsic circulating anticoagulants (principal); I13.0 Hypertensive heart and chronic kidney disease with heart failure and stage 1 through stage 4 chronic kidney disease, or unspecified chronic kidney disease; I50.32 Chronic diastolic (congestive) heart failure; N17.9 Acute kidney failure, unspecified; I48.21 Permanent atrial fibrillation; K51.90 Ulcerative colitis, unspecified, without complications; M79.604 Pain in right leg; M79.81 Nontraumatic hematoma of soft tissue; M25.461 Effusion, right knee; N18.30 Chronic kidney disease, stage 3 unspecified; Z66 Do not resuscitate; E11.22 Type 2 diabetes mellitus with diabetic chronic kidney disease; Z79.01 Long term (current) use of anticoagulants
CPT/HCPCS: 73560; 80048; 80053; 80061; 82962; 83036; 85025; 85027; 85610; 85730; 87070; 93005; 93971; 97112; 97163; 97166; 99285

== ENCOUNTER 2023-10-18 01:18 | Inpatient (IN) | payer MEDICARE, OTHER, SELFPAY ==
[2023-10-17 23:38] VITALS: BP 146/72
[2023-10-17 23:40] VITALS: BP 146/72
[2023-10-17 23:42] VITALS: BMI 24.8
[2023-10-17 23:42] LABS: Glucose - Point of Care 142 mg/dl (70-99)
--- NOTE | 2023-10-17 23:43 | ED.CVA ---
History of Present Illness
General
Chief Complaint: CVA/TIA Symptoms
Time Seen by Provider: 10/17/23 23:34
Onset of Stroke Symptoms
Onset of symptoms known: Yes
Date of onset of symptoms: 10/17/23
Travel History
Have you had any contact with someone who has COVID-19?: No
Do you have any symptoms of coronavirus? Fever > 100 degrees, chills, cough, shortness of breath, sore throat, loss of taste or smell, muscle aches, or headache?: No
History of Present Illness
History of Present Illness:
83-year-old male noted some slight hand incoordination and trouble holding things with his right arm since waking up in the morning. Symptoms stabilized throughout the day. Some slight disequilibrium. No other symptoms noted patient is on
Coumadin for atrial fibrillation. INR has been therapeutic
Past History
Past History
ED Past Medical History: Arrthythmia (afib), CHF, Valvular disease and Other (BPH)
ED Past Surgical History: Orthopedic (Left knee replacement, right hip replacement. Right shoulder surgery) and Other (hernia sx)
Social History
Tobacco: Non-smoker
Alcohol: Occasional
Drug: None
Personal:
Living: with family
Employment: Retired
Family History
Family History: Other (n/c)
Phy Exam
Physical Exam
Physical Exam:
GENERAL: Alert and oriented in no apparent distress
EYE: Orbits normal.
NECK: Supple, no significant adenopathy.
ENT: Pharynx without erythema
CARDIAC: Bradycardic and mildly irregular
LUNGS: Clear breath sounds,normal
ABDOMEN: Soft, without focal tenderness or distention
NEUROLOGICAL: Alert and oriented , speech normal. Cranial nerves II through XII intact. Eye confrontation normal. Minimal right arm drift and pronation with some subjective slight sensory changes. Lower extremities normal.
SKIN: Warm and dry, no rash or lesion, no discoloration, skin intact.
MUSCULOSKELETAL: No edema,no deformity.Good color
PSYCH: Normal and appropriate interaction.
Scores
NIH Stroke Score
Level of Consciousness: 0 - Alert
LOC Questions: 0-Answers both correctly
LOC Commands: 0-Performs both correctly
Best Horizontal Gaze: 0-Normal
Visual Curran: 0=Normal, no visual loss
Facial Palsy: 0=Normal, symmetrical
Motor - Right Arm: 1=Drift < 10 seconds
Motor - Left Arm: 0=No drift 10 seconds
Motor - Right Le-No drift 5 seconds
Motor - Left Le-No drift 5 seconds
Limb Ataxia: 0-Absent
Sensation: 1-Mild loss
Best Language: 0-No aphasia
Dysarthria: 0-Normal
Extinction and Inattention: 0-No abnormality
Total Score:: 2
Course
Orders/Labs/Results
Orders:
Orders
10/17/23 23:35
Electrocardiogram (*1) Stat
Reason for Study: Other
Other Reason for Exam: neuro symptoms
Cardiac Monitoring- Treatment ONCE
EKG- Treatment ONCE
Pulse Ox/cont/shift [RESP] Stat
Quantity: 1
10/17/23 23:40
CT Head W/o Cont STROKE ALERT Urgent
Comment:
Reason For Exam: Right arm drift/incoordination
10/17/23 23:48
Basic Metabolic Panel Urgent
Complete Blood Count/With Diff Urgent
PTT Urgent
Prothrombin Time Urgent
Abnormal Lab Results
10/17/23 10/17/23
23:40 23:48
RBC 4.44 L 10^6/uL
(4.70-6.10)
MCH 33.6 H pg
(27.0-31.0)
Absolute Lymphs (auto) 0.8 L 10^3/uL
(1.2-3.4)
Absolute Monos (auto) 0.8 H 10^3/uL
(0.1-0.6)
Lymphocytes % 11.5 L %
(20.5-51.1)
Monocytes % 10.3 H %
(1.7-9.3)
Carbon Dioxide 21 L mmol/L
(22-30)
BUN 63 H mg/dl
(9-20)
Creatinine 1.6 H mg/dL
(0.7-1.3)
Glucose 149 H mg/dl
(70-99)
POC Glucose 142 H mg/dl
(70-99)
10/17/23 23:48
10/17/23 23:48
Vital Signs
Initial and Last Documented VS:
Initial Vital Signs
Pulse Resp Pulse Ox
66 18 98
10/17/23 23:36 10/17/23 23:36 10/17/23 23:36
Last Documented Vital Signs
Pulse Resp BP Pulse Ox
57 17 124/63 98
10/18/23 00:00 10/18/23 00:00 10/18/23 00:00 10/18/23 00:00
MDM/Problems Addressed
Differential Diagnosis Includes:
Patient with mild CVA. Timeline and anticoagulation contradict thrombolytics. Minimal NIH score time do not warrant acute pursuing for IAT.
*Radiology
Radiology exam reviewed: radiology read reviewed (Negative head CT)
*Pulse Oximetry
Patient hypoxic: no
*EKG
Interpreted by ED Provider?: Yes
Interpretation: abnormal
Comparison EKG: no changes
Heart Rate: 54
Rate: bradycardiac
Rhythm: a-fib
Prosser: normal axis
Interval: normal interval
QRS Pattern: normal QRS
Ischemia: non-specific ST changes
*Machine Pie Maker Interpretation
Rate: bradycardiac
Interpretation: abnormal
Heart Rate: 55
Rhythm: a-fib
*Critical Care Note
Total Time (30-74mins, 75-104mins- exclusive of procedures): 35
ED Attending Note
-
Portions of this chart may have been created with voice recognition software.� Occasional wrong word or��sound alike� substitutions may have occurred due to the inherent limitations of voice recognition software.
Discharge Plan
Departure
Patient Disposition: Admit
Date of Disposition: 10/18/23
Time of Disposition: 00:17
Admit to: Telemetry
Presentation/result/management discussed w/ accepting MD/DO: Hospitalist
Discharge Problem:
Acute CVA, History of atrial fibrillation, Anticoagulated
Prescriptions:
No Action
diltiazem HCl [Cartia XT] 180 MG capsule,extended release 24hr
180 mg PO DAILY
warfarin [Jantoven] 4 MG tablet
2 mg PO TUTHSA
Hold Instructions: Resume on 03/27/23.
fluticasone propionate 50 mcg/actuation [place],Suspension
1 spray INTRANASAL DAILY Qty: 0
Patient Comments:
2 SPRAYS DAILY
loratadine 10 MG tablet
10 mg PO DAILY
dutasteride 0.5 MG capsule
0.5 mg PO DAILY
mesalamine [Apriso] 0.375 GM capsule,extended release 24hr
1.5 g PO DAILY
warfarin [Jantoven] 4 MG tablet
4 mg PO SUMOWEFR
Hold Instructions: Resume on 03/27/23.
Patient Comments:
pt alternates every other day with Coumadin 2mg.
cyanocobalamin (vitamin B-12) 1,000 mcg tablet
1,000 mcg PO DAILY
sildenafil 25 mg tablet
25 mg PO DAILY PRN (Reason: intercourse)
spironolactone 25 mg tablet
25 mg PO DAILY
tamsulosin 0.4 mg capsule
0.4 mg PO DAILY
PreserVision AREDS 2,148 mcg-113 mg-45 mg-17.4mg Tablet
1 tab PO BID
Farxiga 10 mg tablet
10 mg PO DAILY
oxycodone 5 mg Tablet
5 mg PO Q6HPRN PRN (Reason: severe pain) Qty: 7 0RF
furosemide 80 mg tablet
40 mg PO BID Qty: 0 0RF
lactulose 10 gram/15 mL (15 mL) solution
10 g PO DAILY PRN (Reason: Constipation) Qty: 150 0RF
Referrals:
Roby Coffman DO [Family Provider] -
Interventions
Interventions:
*Risk Screen - Suicide Last Done: 10/17/23 23:36
*Neglect/Abuse Screening Last Done: 10/17/23 23:36
ED- Neurological Assessment Last Done: 10/17/23 23:45
Discharge Date and Time
Print Language: [id number]
[2023-10-17 23:58] VITALS: BP 116/85
[2023-10-17 23:58] LABS: % Basophils 0.8 % (0-2); % Eosinophils 2.7 % (0-6); % Immature Granulocytes 0.3 % (0-0.5); % Lymphocytes 11.5 % (20.5-51.1); % Monocytes 10.3 % (1.7-9.3); % Neutrophils 74.4 % (42.2-75.2); Absolute Basophils 0.1 10^3/uL (0-0.2); Absolute Eosinophils 0.2 10^3/uL (0-0.7); Absolute Lymphocytes 0.8 10^3/uL (1.2-3.4); Absolute Monocytes 0.8 10^3/uL (0.1-0.6); Absolute Neutrophils 5.4 10^3/uL (1.4-6.5); Hematocrit 40.4 % (39.0-52.0); Hemoglobin 14.9 g/dL (13.0-18.0); Mean Corp Hgb Conc. 36.9 g/dL (33.0-37.0); Mean Corpuscular Hgb 33.6 pg (27.0-31.0); Nucleated Red Blood Cells % 0 % (-); Platelet Count 134 10^3/uL (130-400); Red Blood Cell Count 4.44 10^6/uL (4.70-6.10); Red Cell Dist. Width 13.9 % (11.5-14.5); White Blood Cell Count 7.3 10^3/uL (4.8-10.8)
[2023-10-18] VITALS (13 sets, daily range): BP systolic 102–149; BP diastolic 55–71; PULSE 58–79; O2SAT 96; BMI 23.9
[2023-10-18 00:12] LABS: Blood Urea Nitrogen 63 mg/dl (9-20); Calcium 9.7 mg/dl (8.4-10.2); Carbon Dioxide 21 mmol/L (22-30); Chloride 100 mmol/L (98-107); Estimated Creatinine Clearance 35 ml/min; Glucose 149 mg/dl (70-99); Potassium 4.4 mmol/L (3.5-5.1); Sodium 135 mmol/L (135-145); eGFR 41.96
[2023-10-18 00:19] LABS: INR 1.56; PT 18.5 Sec (11.4-14.6)
[2023-10-18 00:20] LABS: APTT 34.9 Sec (23.4-35.0)
--- NOTE | 2023-10-18 01:08 | HPS.HSE ---
Family Physician
-
Family Physician: Roby Coffman, DO
Chief Complaint
-
Ataxia, Weakness
History of Present Illness
Patient is an 83y R-hand dominant M with PMH significant for A-Fib on Coumadin, BPH and DJD who presents to ED complaining of R hand tingling, ataxia and headache. Patient states that he noted some numbness in his R hand / fingers at some point
this morning. He is unable to pinpoint when exactly her first noted his symptoms. He states that he has had a frontal headache throughout the day. He noted that his handwriting was worse than usual. He also noted that he had difficulty walking
when he first stood. He specifically states that his R foot 'didn't do what I wanted it to'. He denies any falling or injury.
Patient denies any prior history of similar symptoms.
In the ED, he continues to have frontal headache. He denies any tingling in the R hand at present but notes that it '[id number]'.
Patient denies any prior history of [place], CVA, etc.
notes that patient was 'sick' about one week ago. He notes that he was feeling very tired and he has had some loose stools for the past week or so.
No cough, fevers / chills, chest pain, dyspnea, etc.
Medical History
Past Medical History
Past Medical History: Reports Other
Additional Past Medical History:
BPH
Atrial Fibrillation
Chronic HFpEF
Hypertension
CKD III
DM-II
Ulcerative Colitis
DJD
Past Surgical History: Reports Other
Additional Past Surgical History:
Bilateral TKA
Right CASSIUS
Right Shoulder Surgery
Hernia Repair
Social History
Tobacco: Former Smoker
Alcohol: Daily (1-2 drinks daily)
Drug: None
Family History
Family History: Not pertinent
Allergies / Home Medications
Allergies reflects when Allergies were last updated in [facility].
Home Medications with original date entered in [facility]
Allergy/Medication List:
Allergies
Allergy/AdvReac Type Severity Reaction Status Date / Time
adhesive tape Allergy Rash Verified 03/06/23 10:57
enviromental allergies Allergy Unknown Uncoded 03/06/23 10:57
Home Medications
dutasteride 0.5 mg capsule 0.5 mg PO DAILY Urinary Issue 04/30/17
fluticasone propionate 50 mcg/actuation nasal spray,suspension 1 spray intranasal BIDPRN PRN allergies ##0 04/30/17
loratadine 10 mg tablet 20 mg PO HS Allergies 04/30/17
dapagliflozin propanediol 10 mg tablet (Farxiga) 10 mg PO DAILY 03/22/23
spironolactone 25 mg tablet 25 mg PO HS Fluid Retention/Swelling 03/22/23
tamsulosin 0.4 mg capsule 0.4 mg PO DAILY Urinary Issue 03/22/23
Angelica 2 tab PO DAILY 10/18/23
carboxymethylcellulose sodium 1 % eye liquid gel drops 2 drp BOTH EYES BID 10/18/23
cholecalciferol (vitamin D3) 25 mcg (1,000 unit) tablet 25 mcg PO HS 10/18/23
diltiazem HCl 180 mg capsule,24 hr,extended release 180 mg PO DAILY 10/18/23
furosemide 80 mg tablet 80 mg PO BID 10/18/23
halobetasol propionate 0.05 % topical cream 1 applic topical BID 10/18/23
mesalamine 0.375 gram capsule,extended release 24 hr 1.5 g PO DAILY 10/18/23
vitamins A,C,B-hcdg-xhojrz 2,148 mcg-113 mg-45 mg-17.4 mg tablet (PreserVision AREDS) 1 tab PO DAILY 10/18/23
warfarin 4 mg tablet 2 mg PO SUTUWETHSA@0800 10/18/23
warfarin 4 mg tablet 4 mg PO MOFR@0800 10/18/23
Review of Systems
-
History Source: Patient
A 12 point ROS was completed and negative except as noted: Yes
Constitutional: Reports Fatigue; Denies Fever or Chills
Respiratory: Denies Cough or Trouble Breathing
Cardiac: Denies Chest Pain or Palpitations
Abdomen/GI: Reports Diarrhea; Denies Abdominal Pain, Nausea or Vomiting
: Denies Dysuria or Frequency
Musculoskeletal: Denies Joint Pain or Edema
Neurological: Reports Headache, Weakness and Numbness; Denies Dizzy
Psych: Denies Depression or Anxiety
Physical Exam
Vital Signs
Vital Signs
Pulse Resp BP Pulse Ox
56 12 124/63 96
10/18/23 00:15 10/18/23 00:15 10/18/23 00:00 10/18/23 00:15
Physical Exam
General: Other (83y M in no acute distress.)
HEENT: Moist mucous membranes and PERRLA
Respiratory: Clear; No Wheezes, Rales or Rhonchi
Cardiac: S1/S2, Irregular Rhythm and Murmur (II/ PUSHPA)
GI: Soft, Non Tender, Non Distended and Normal Bowel Sounds
Musculoskeletal: No Clubbing, No Cyanosis and Other (1+ pitting edema b/l LEs with chronic venous stasis skin changes.)
Neuro: AO x 3 and Other (R weakness (strength 4/5) compared to the L. Pos ataxia RUE and RLE. Sensation seems intact. Mild R facial droop. Tongue extends midline. Speech is clear.)
Laboratory Results
-
10/17/23 23:48
10/17/23 23:48
Laboratory Results
PT 18.5 Sec (11.4-14.6) H 10/17/23 23:48
INR 1.56 10/17/23 23:48
APTT 34.9 Sec (23.4-35.0) 10/17/23 23:48
Impression/Plan
-
A/P: Patient is an 83y M with PMH significant for CHF, A-Fib and CKD who presents to ED for evaluation of R weakness, ataxia and headache.
CVA
- Admit for further evaluation and treatment.
- Symptoms seem most c/w mild L sided CVA.
- R weakness and ataxia appreciable on exam.
- CT head is unremarkable. Not currently hypertensive.
- Has A-Fib on chronic Coumadin - INR today is subtherapeutic.
- Not candidate for TNKase or IAT.
- Monitor on telemetry.
- Follow serial exams.
- MRI brain in AM. Neuro eval in AM.
- PT / OT / Speech evals.
- Continue Coumadin for now and follow daily INR.
- Add low dose ASA for now.
- Check lipids, A1C, etc.
Atrial Fibrillation
- Unknown type - ? permanent.
- Monitor on tele.
- Coumadin as noted above.
- Continue diltiazem with holding parameters.
Chronic HFpEF
- Stable. Does not appear grossly volume overloaded on exam.
- Patient states that weight at home has been stable.
- Hold spironolactone for now.
- Change Lasix to once daily for now.
- Follow daily weights, I/Os, etc and adjust diuretic regimen as needed for volume control / to avoid hypotension.
DM-II
- Stable. Hold Farxiga acutely.
- Follow glucose and cover with SSI as needed.
- Update A1C.
CKD III
- Stable. SCr is at / near known baseline.
- Follow for any changes.
BPH
- Stable. Continue dutasteride. Hold tamsulosin for now.
DVT Prophylaxis: On Coumadin
Code Status: Full
--- NOTE | 2023-10-18 03:00 | PTCARENOTE ---
Received patient from ED via stretcher; Telemetry order. Afib on the monitor, HR controlled. VSS> afebrile, HR 66, RR 18, BP 146/63, 99% room air. No c/o of pain. NIH score 0. Swallow screen- passed. PMH and medications reviewed by this RN and
patient. Plan of care discussed, Education on heart failure, stroke, diet reviewed. Patient oriented to room.
[2023-10-18 03:11] LABS: COVID-19 Antigen Negative (Negative)
[2023-10-18 05:30] LABS: INR 1.63; PT 19.2 Sec (11.4-14.6)
[2023-10-18 05:33] LABS: Hemoglobin 14.7 g/dL (13.0-18.0); Mean Corpuscular Hgb 33.2 pg (27.0-31.0); Mean Corpuscular Volume 94.8 fL (80.0-94.0); Mean Platelet Volume 10.3 fL (7.4-10.4); Platelet Count 125 10^3/uL (130-400); Red Blood Cell Count 4.43 10^6/uL (4.70-6.10); Red Cell Dist. Width 13.8 % (11.5-14.5); White Blood Cell Count 6.3 10^3/uL (4.8-10.8)
[2023-10-18 06:10] LABS: Blood Urea Nitrogen 58 mg/dl (9-20); Calcium 9.2 mg/dl (8.4-10.2); Carbon Dioxide 22 mmol/L (22-30); Chloride 103 mmol/L (98-107); Estimated Creatinine Clearance 37 ml/min; Glucose 103 mg/dl (70-99); HDL Cholesterol 66 mg/dl; LDL Cholesterol, Calculated 67 mg/dl; Potassium 3.5 mmol/L (3.5-5.1); Sodium 135 mmol/L (135-145); Total Cholesterol 147 mg/dl (50-199); Triglyceride 71 mg/dl (10-149); Very Low Density Lipoprotein 14 mg/dl (0-30); eGFR 45.34
[2023-10-18 06:24] LABS: TSH Reflex To Free T4 2.17 uIU/ml (0.47-4.68)
[2023-10-18 08:26] LABS: Glucose - Point of Care 102 mg/dl (70-99)
--- NOTE | 2023-10-18 08:47 | CON.NEURO4 ---
Addendum entered and electronically signed by Gilberto Banuelos MD 10/18/23 10:56:
Studies reviewed.
I have personally examined the patient. I reviewed and agree with the VOCATIONAL REHABILITATION TECHNICIAN's Note.
My addenda:
Awake, alert, interactive. No acute distress.
Speech intact.
Follows 2-step requests w/o difficulty. No tremor.
Extra-ocular movements grossly intact.
Facial movements full and symmetric. Hearing reduced to normal conversational volume.
Neck: full ROM.
Chest: no dyspnea
Heart: no JVD
Ext: (-) Clubbing, (-) Cyanosis, (-) Edema
IMPRESSIONS/RECOMMENDATIONS:
Abrupt onset of right hand and right foot dysfunction, with associated right hand numbness
Likely patient is experienced an acute anterior circulation ischemic stroke
Attempt to elevate the patient's INR from subtherapeutic to the goal of 2-3
Discontinue aspirin
Check MRI of brain as planned
Check carotid ultrasound
May monitor alone cholesterol as LDL is less than 70
Have patient receive rehabilitation evaluations
D/W patient
All questions answered.
Will continue to follow pending results.
Original Note:
Documented by User: Candace Talavera NP 10/18/23 10:43
Consultation - Neurology 4
-
CONSULTING PHYSICIAN: Gilberto Banuelos MD
REFERRING PHYSICIAN: Hospitalists/Dr. Carrera
DICTATED BY: SYD Fall
DATE/TIME OF REQUEST: 10/18/23
DATE/TIME OF CONSULTATION: 10/18/23
Reason for Consultation: Right-sided weakness
History of Present Illness:
This is an 83-year-old right-handed male who has presented to the hospital on 10/17/23 with report of right hand weakness and paresthesia, ataxia, and headache. Patient reports waking up yesterday morning (10/17/23) at 0700 and initially feeling in his
usual state. He ate breakfast and noticed that his right hand felt just slightly unusual. Around 0930 he was trying to text on his phone and noticed that his right hand couldn't push the buttons and it felt numb. He tried to write and his
handwriting was illegible. Throughout the day he reports dropping things that he was holding in his right hand. Additionally, after breakfast he noticed that his balance was off which was unusual for him, but he attributed this to his recent R TKR
and his usual knee stiffness in the morning. He also reports having a mild headache which was unusual for him. He didn't present to the ER for evaluation until last night. CT head was obtained in the ER and is negative for any acute findings. NIHSS
was a 2 for RUE drift and mild loss of sensation. He is taking Coumadin for Afib and his INR was subtherapeutic at 1.56. He denies missing any doses. He was not a candidate for TNK/IAT due to Coumadin usage, outside of time window, and NIHSS<6.
Currently, he reports ongoing right hand weakness and numbness. He denies any headache, dizziness, vision changes, speech/swallow difficulty, nausea, chest pain, palpitations, and shortness of breath. He reports that his speech is hypophonic
chronically, he denies any tremor. He denies any history of TIA, stroke, or events similar to this in the past.
Past Medical History: Afib (Coumadin), BPH, HFpEF, tricuspid valve regurgitation, CKD, NIDDM, thrombocytopenia, gallbladder polyp, hepatic cyst, pancreatic lesion, osteoarthritis, DJD, ulcerative colitis
Surgical History: B/L TKR, R THR, R shoulder repair, squamous cell removal, b/l hearing aid implants
Family History: Reviewed and noncontributory.
Social History: Former tobacco. Daily alcohol 1-2 drinks. Denies illicit drug use.
Allergies: Adhesive tape, environmental allergies.
Home Medications: See below.
Review of Symptoms:
Patient denies any fever, headache, chest pain, shortness of breath, GI or symptoms.
�Per the HPI.�All systems are reviewed negative except above.
Physical Exam:
The patient is afebrile, abdomen is nondistended, breathing is unlabored, skin is warm and dry, no edema.
NIH Stroke Scale:
I performed the NIH stroke scale on the patient on 10/18/23 at 0900. The patient scored 2 points on the NIH stroke scale assessment, which were assigned as follows: See below.
Neurologic Examination:
The patient is awake, alert and oriented x 3. He is able to follow commands and answer questions appropriately. There is no aphasia or dysarthria. Speech is hypophonic. On cranial nerve assessment, pupils are 3 mm bilateral, round and reactive to
light and accommodation. Visual curran are full. Extraocular movements are intact. Facial sensations are intact and bilaterally symmetrical, there is no facial asymmetry. Hearing is diminished bilaterally to normal conversation volume. Tongue palate
and uvula are midline. Sternocleidomastoid strengths are full bilaterally. Motor strengths are 5/5 bilateral upper and lower extremities on medical research [place] scale. There is drift in the RUE. No involuntary movement noted. Deep tendon
reflexes are 2+ bilateral upper and lower extremities and Babinski is absent bilaterally. There was no extinction noted on double simultaneous stimulation. Coordination is intact by finger to nose bilaterally.
Lab Results: See below.
Neuro Imaging:
1. CT Head 10/17/23: No acute intracranial abnormalities.
Differentials for the patient's presentation include:
1. Acute left hemisphere ischemic infarct likely producing right-sided weakness and sensation changes. Etiology likely embolic in the setting of Afib/subtherapeutic INR.
Patient has the following risk factors for their symptoms: Subtherapeutic INR, Afib, HLD, NIDDM
IV Tenecteplase/IAT candidacy: He was not a candidate for TNK/IAT due to Coumadin usage, outside of time window, and NIHSS<6.
Recommendations:
-Continue warfarin, INR goal 2-3. Discontinue aspirin.
-MRI brain noncontrast ordered/pending.
-Carotid ultrasound ordered/pending.
-Goal normotension as it is 24 from symptom onset.
-LDL goal <70. LDL is 67. Okay to hold off initiating statin therapy as LDL is at goal.
-Goal normoglycemia, hbA1c is 5.4.
-NIHSS and neurological checks per unit guidelines.
-Provide patient with a stroke education packet.
-PT/OT/ST evaluations.
-Will follow pending results.
Discussed patient care with: Dr. Banuelos, the patient
Vital Signs and Labs
-
Vital Signs and Labs:
Vital Signs
Temp Pulse Resp BP Pulse Ox
97.7 F 54 18 112/55 95
10/18/23 07:39 10/18/23 07:39 10/18/23 07:39 10/18/23 07:39 10/18/23 07:39
Lab Results
10/18/23 04:18
10/18/23 04:18
PT 19.2 Sec (11.4-14.6) H 10/18/23 04:18
INR 1.63 10/18/23 04:18
APTT 34.9 Sec (23.4-35.0) 10/17/23 23:48
Sodium 135 mmol/L (135-145) 10/18/23 04:18
Potassium 3.5 mmol/L (3.5-5.1) 10/18/23 04:18
BUN 58 mg/dl (9-20) H 10/18/23 04:18
Glucose 103 mg/dl (70-99) H 10/18/23 04:18
Calcium 9.2 mg/dl (8.4-10.2) 10/18/23 04:18
LDL Cholesterol, Calc 67 mg/dl 10/18/23 04:18
Medications
-
Active Medications
Generic Name Dose Route Start Last Admin
Trade Name Freq PRN Reason Stop Dose Admin
Acetaminophen 650 mg 10/18/23 02:49
Acetaminophen 650 Mg Rectal Suppository RECTAL 11/15/23 02:48
Q4HPRN PRN
JOVEL, mild pain, or temp >100.4F
Acetaminophen 650 mg 10/18/23 02:49
Acetaminophen 325 Mg Tablet PO 11/15/23 02:48
Q4HPRN PRN
JOVEL, mild pain, or temp >100.4F
Aspirin 81 mg 10/18/23 08:00
Aspirin 81 Mg Chewable Tablet PO 11/15/23 07:59
DAILY CHINO
Atorvastatin Calcium 10 mg 10/18/23 18:00
Atorvastatin (Lipitor) 10 Mg Tablet PO 11/15/23 17:59
QPM CHINO
Dextrose 12.5 grams 10/18/23 02:49
Dextrose 50% (0.5 Grams/Ml) 50 Ml Syringe IV 11/15/23 02:48
[id number] PRN
hypoglycemia
Protocol
Diltiazem HCl 180 mg 10/18/23 08:00
Diltiazem 180 Mg Extended Release (24 H) Capsule PO 11/15/23 07:59
DAILY CHINO
Finasteride 5 mg 10/18/23 08:00
Finasteride 5 Mg Tablet PO 11/15/23 07:59
DAILY CHINO
Furosemide 80 mg 10/18/23 08:00
Furosemide 80 Mg Tablet PO 11/15/23 07:59
DAILY CHINO
Glucagon 1 mg 10/18/23 02:49
Glucagon 1 Mg Vial IM 11/15/23 02:48
PRN PRN
hypoglycemia
Protocol
Insulin Aspart 0 units 10/18/23 07:30
Insulin Aspart Low Resistance 300 Units/3 Ml Pen.Injctr SC 11/15/23 07:29
AC CHINO
Protocol
Non-Formulary Medication 1.5 grams 10/18/23 08:00
Mesalamine PO 11/15/23 07:59
DAILY CHINO
Sodium Chloride 0 flush 10/18/23 04:00
Sodium Chloride 0.9% (Flush) Syringe IV 11/15/23 03:59
PER PROTOCOL CHINO
Warfarin Sodium 4 mg 10/21/23 08:00
Warfarin 4 Mg Tablet PO 10/26/23 07:59
MOFR@0800 [facility]
Warfarin Sodium 2 mg 10/18/23 08:00
Warfarin 2 Mg Tablet PO 10/23/23 07:59
SUTUWETHSA@0800 [facility]
Home Medications
�Medication �Instructions �Recorded
dutasteride 0.5 mg capsule 0.5 mg PO DAILY Urinary Issue 04/30/17
fluticasone propionate 50 1 spray intranasal BIDPRN PRN 04/30/17
mcg/actuation nasal allergies ##0
spray,suspension
loratadine 10 mg tablet 20 mg PO HS Allergies 04/30/17
dapagliflozin propanediol 10 mg 10 mg PO DAILY 03/22/23
tablet (Farxiga)
spironolactone 25 mg tablet 25 mg PO HS Fluid 03/22/23
Retention/Swelling
tamsulosin 0.4 mg capsule 0.4 mg PO DAILY Urinary Issue 03/22/23
Angelica 2 tab PO DAILY 10/18/23
carboxymethylcellulose sodium 1 % 2 drp BOTH EYES BID 10/18/23
eye liquid gel drops
cholecalciferol (vitamin D3) 25 25 mcg PO HS 10/18/23
mcg (1,000 unit) tablet
diltiazem HCl 180 mg capsule,24 180 mg PO DAILY 10/18/23
hr,extended release
furosemide 80 mg tablet 80 mg PO BID 10/18/23
halobetasol propionate 0.05 % 1 applic topical BID 10/18/23
topical cream
mesalamine 0.375 gram 1.5 g PO DAILY 10/18/23
capsule,extended release 24 hr
vitamins A,C,I-wwxz-tisjcn 2,148 1 tab PO DAILY 10/18/23
mcg-113 mg-45 mg-17.4 mg tablet
(PreserVision AREDS)
warfarin 4 mg tablet 2 mg PO SUTUWETHSA@0810/18/23
warfarin 4 mg tablet 4 mg PO MOFR@79910/18/23
NIH Stroke Score
Subsequent NIH Scale
Date of Subsequent NIH Scale: 10/18/23
Time of Subsequent NIH Scale: 09:00
NIH Stroke Score
Level of Consciousness: 0 - Alert
LOC Questions: 0-Answers both correctly
LOC Commands: 0-Performs both correctly
Best Horizontal Gaze: 0-Normal
Visual Curran: 0=Normal, no visual loss
Facial Palsy: 0=Normal, symmetrical
Motor - Right Arm: 1=Drift < 10 seconds
Motor - Left Arm: 0=No drift 10 seconds
Motor - Right Le-No drift 5 seconds
Motor - Left Le-No drift 5 seconds
Limb Ataxia: 0-Absent
Sensation: 1-Mild loss
Best Language: 0-No aphasia
Dysarthria: 0-Normal
Extinction and Inattention: 0-No abnormality
Total Score:: 2

Documented by User: Gilberto Banuelos MD 10/18/23 10:52
NIH Stroke Score
NIH Stroke Score
Total Score:: 2
[2023-10-18 08:52] LABS: Glycohemoglobin (HgbA1c) 5.4 % (4.0-5.6)
--- NOTE | 2023-10-18 09:20 | PTOTSP ---
Speech Language Pathology
Pt seen for speech/language evaluation. Decreased vocal intensity noted, which pt stated is baseline. No dysarthria noted with adequate diadochokinetic (DDK) rates. Language evaluated via the Quick Aphasia Battery (QAB), form 1. Pt with an
overall score of 9.72, indicating no deficits.
Pt also seen for dysphagia tx. R facial droop and slight R lingual deviation noted. Seen with breakfast tray of regular solids/thin liquids. Adequate mastication, bolus formation, and A-P transit noted with no oral residue. Infrequent brief
labial leakage of solids on R, which pt was only intermittently sensate to. Brief throat clearing noted post consecutive sips. No throat clearing noted with single sips. Also seen with med pass with 2 pills whole with liquid with no overt
difficulty.
Recommend:
(1) Regular solids/thin liquids
(2) Aspiration precautions: slow rate, single sips, check for labial leakage on R
(3) Meds whole with liquid as tolerated
(4) PRODUCT MARKETING ENGINEER to continue to follow
[2023-10-18] MEDS: CARDIZEM CD PO (09:28)
[2023-10-18] MEDS: LOW STRENGTH ASPIRIN 81 MG PO (09:31)
[2023-10-18] MEDS: PROSCAR 5 MG PO (09:31)
[2023-10-18] MEDS: LASIX PO (09:33)
[2023-10-18] MEDS: COUMADIN 2 MG PO (10:13)
--- NOTE | 2023-10-18 10:39 | CM ---
Addendum entered by Lynne Hopkins RN 10/18/23 15:18:
Received request from attending to amado Eliquis 2.5mg BID and Xarelto 15mg daily. Per [facility] pharmacy, Eliquis would be $90.06/month and Xarelto would be $86.97/month. Xarelto 15mg is not in stock and would need to be ordered. Patient and
attending informed of above.
Original Note:
Reviewed the chart notes and spoke with the patient at the bedside. The patient resides with his spouse in a one story home with one step to enter. The patient has a cane, shower chair rolling walker, and shower rails. The patient has been to
[facility] in the past and had VN in past, but could not recall the name of the agency. The patient confirmed his pharmacy of choice is the [email or web address]. continues to be available to patient/family and is monitoring medical plan
for needs at discharge.
Plan: Discharge to home when medically stable. No needs anticipated.
[2023-10-18 12:31] LABS: Glucose - Point of Care 95 mg/dl (70-99)
[2023-10-18] MEDS: LASIX 80 MG PO (13:56)
--- NOTE | 2023-10-18 14:49 | W.PN.HOSP.TC ---
Today's Communication/Plan
-
Acute CVA
Resume anticoagulation either with Coumadin or Eliquis.
Physical therapy speech and swallow assessment.
Monitor neurologic status closely while on anticoagulation.
Goal normotension.
Resume preadmission cardiovascular regimen.
Monitor for excessive hypotension while on diuretics and Flomax.
Orthostatic vitals
Assessment / Plan
Assessment / Plan
Impression:
Patient is an 83y M with PMH significant for CHF, A-Fib and CKD who presents to ED for evaluation of R weakness, ataxia and headache.
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
Conditions prior to admission:
Permanent atrial fibrillation
Anticoagulation with Coumadin
Chronic CHF preserved EF
Diabetes type 2
CKD stage III
BPH
Plan:
Acute left hemispheric CVA, possibly embolic in the settings of subtherapeutic INR in patient with atrial fibrillation.
CT head unremarkable
MRI: There is a small acute/subacute nonhemorrhagic infarct in the left gregory radiata. No significant adjacent edema or mass effect.
Moderate volume loss. Moderate leukoaraiosis.
Patient was not a candidate for lytic treatment or IAT.
Neurologically stable with only mild right upper extremity paresthesia.
Discussed with neurology.
Permanent atrial fibrillation
Rate control with Cardizem.
Anticoagulation as above
Chronic CHF preserved EF.
Volume status compensated
Resume preadmission medication regimen including Lasix and spironolactone.
Follow daily weights and renal function
CKD stage III. Baseline creatinine 1.5�1.6
Follow creatinine while on diuretics
Diabetes type 2.
Hemoglobin A1c 5.4.
Okay to resume Farxiga
BPH
Continue dutasteride.
Resume Flomax and monitor for hypotension.
Ulcerative colitis with no evidence for acute exacerbation.
On mesalamine
Anticipated Discharge: 24 - 48 hours
Subjective/Interval History
-
Date of Service: October 18, 2023
Objective Data
-
Labs:
Laboratory Results
10/18/23
04:18
WBC 6.3
Hgb 14.7
Hct 42.0
Plt Count 125 L
PT 19.2 H
INR 1.63
Sodium 135
Potassium 3.5
Chloride 103
Carbon Dioxide 22
BUN 58 H
Creatinine 1.5 H
Glucose 103 H
Calcium 9.2
Vital Signs:
Vital Signs
Temp Pulse Resp BP Pulse Ox
97.5 F 58 18 131/66 98
10/18/23 12:22 10/18/23 12:22 10/18/23 12:22 10/18/23 12:22 10/18/23 12:22
I&O
10/17/23 10/18/23 10/19/23
06:59 06:59 06:59
Intake Total 360 / 360
Output Total 900 / 900
Balance -540 / -540
Physical Exam
-
General: Well Developed and No Apparent Distress
HEENT: Normocephalic, Atraumatic and Moist Mucous Membranes
Respiratory: Clear to Auscultation
Cardiac: Regular Rhythm and S1/S2; Negative Murmur, Rub or Gallop
GI: Soft, Nontender, Nondistended and Normal Bowel Sounds; Negative Organomegaly
Rectal: Deferred by Provider
Musculoskeletal: No Clubbing, No Cyanosis and No Edema
Skin: Negative Rash
Neuro: Nonfocal/Grossly Intact
[2023-10-18] MEDS: FARXIGA 10 MG PO (15:41)
[2023-10-18 16:54] LABS: Glucose - Point of Care 103 mg/dl (70-99)
[2023-10-18] MEDS: LIPITOR 10 MG PO (17:20)
[2023-10-18] MEDS: ALDACTONE 25 MG PO (21:27)
[2023-10-18 22:00] LABS: Glucose - Point of Care 103 mg/dl (70-99)
[2023-10-19 02:59] LABS: Glucose - Point of Care 100 mg/dl (70-99)
[2023-10-19 03:32] VITALS: BP 111/54
[2023-10-19 06:00] VITALS: BMI 21.9
[2023-10-19 06:14] LABS: INR 1.65; PT 19.7 Sec (11.4-14.6)
[2023-10-19 07:30] VITALS: BP 118/79
--- NOTE | 2023-10-19 07:40 | W.PN.NEURO.1 ---
Today's Communication / Plan
-
-Would continue on aspirin 81 mg daily until INR level reaches 2 and then stop aspirin. Given age and previous ulcerative colitis I feel bleeding risks of anticoagulaion plus antiplatlet would be excessive
-Patient will consider Apixaban or other DOAC
-Discussed need to be mindful of green vegetables (he started eating more spinach a month ago) and that these can affect INR
-Goal normotension
-Neurologic checks and NIH
-Check carotid ultrasound
-PT/OT evaluations
-Would continue low dose Atorvastatin 10 mg daily
-Will need neurology follow up 4-6 weeks outpatient
-Can potentially DC today pending PT evaluations and if no serious carotid ultrasound on the left carotid artery
Call with questions and concerns
Neuro Assessment/Plan
Assessment
83 year old man with atrial fibrillation on coumadin presenting with right arm and leg and right hand weakness
INR 1.5 range on admission
MRI brain shows left basal ganglia into left gregory radiata ischemic infarct explaining the symptoms
Carotid ultrasound pending
Most likely etiology is cardioembolic stroke with subtherapeutic INR at 1.5, small vessel disease and atheroembolic are felt less likely
Patient reports no new medication change and compliance with warfarin and he tracks INR at home, had been pretty good therapeutic levels most recently
He does say started eating more spinach 2 months ago that can influence INR levels
Subjective/Objective
Subjective Data
Date of Service: October 19, 2023
No acute events, stable symptoms of right hand weakness and incoordination, difficulty holding things, reports walking around without difficulty
Objective Data
Vital Signs
Temp Pulse Resp BP Pulse Ox
97.9 F 68 16 111/54 96
10/19/23 03:32 10/19/23 03:32 10/19/23 03:32 10/19/23 03:32 10/19/23 03:32
Lab Results
10/18/23 04:18
10/18/23 04:18
PT 19.7 Sec (11.4-14.6) H 10/19/23 05:33
INR 1.65 10/19/23 05:33
APTT 34.9 Sec (23.4-35.0) 10/17/23 23:48
Sodium 135 mmol/L (135-145) 10/18/23 04:18
Potassium 3.5 mmol/L (3.5-5.1) 10/18/23 04:18
BUN 58 mg/dl (9-20) H 10/18/23 04:18
Glucose 103 mg/dl (70-99) H 10/18/23 04:18
Calcium 9.2 mg/dl (8.4-10.2) 10/18/23 04:18
LDL Cholesterol, Calc 67 mg/dl 10/18/23 04:18
Patient Allergies
adhesive tape Allergy (Verified 03/06/23 10:57)
Rash
enviromental allergies Allergy (Uncoded 03/06/23 10:57)
Unknown
LDL Level: <70, continue statin
Review of Systems
-
History Source: Patient
All other systems: Reviewed and negative
Constitutional: No Symptoms
EENT: No Symptoms Reported
Respiratory: No Symptoms
Cardiac: No Symptoms
Abdomen/GI: No Symptoms
Genitourinary: No Symptoms
Musculoskeletal: No Symptoms
Skin: No Symptoms
Neuro: Weakness
Endocrine: No Symptoms
Hematologic / Lymphatic: No Symptoms
Allergy / Immunology: No Symptoms
Physical Exam
-
General: No Apparent Distress
Eyes: No Ptosis
HEENT: Normocephalic
Neck: No Bruits Bilaterally
Respiratory: Clear to Auscultation
Cardiac: Regular Rhythm
GI: Normal Bowel Sounds
Skin: Unremarkable
Extremities: No Clubbing
Psych: Unremarkable
Extended Neurological Exam
Mood & Affect: Mood Unremarkable and Affect Unremarkable
Attention Span & Concentration: Awake, Alert and Interactive
Memory: Unremarkable
Tremor: Hand Tremor Absent
Involuntary Movement: None
Speech: Quality Unremarkable and Quantity Unremarkable; Negative Expressive Aphasia, Receptive Aphasia or Dysarthric
Cranial Nerve II: Left Eye: Pupillary Reactivity Unremarkable, Pupillary Size Unremarkable and Visual Curran Intact
Cranial Nerve II: Right Eye: Pupillary Reactivity Unremarkable, Pupillary Size Unremarkable and Visual Curran Intact
Cranial Nerves III, IV, : Extraocular Movement: Extraocular Movement Full in all Directions
Cranial Nerve V: Facial Sensation: Intact to Pin Prick
Cranial Nerve VII: Facial Symmetry: Normal Facial Symmetry
Cranial Nerve VIII: Hearing: Unremarkable Hearing to Normal Conversational Volume
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
arm flexion)
Muscle Bulk & Tone: Bulk Unremarkable
Pronator Drift: No Drift in Upper Extremities
Deep Tendon Reflexes: Trace Throughout
Touch Sensation: Unremarkable
Coordination: [id number] Testing Unremarkable
Babinski Sign: Absent Bilaterally
Data Reviewed
-
CT Head: Report Reviewed and Image Reviewed
MRI Head: Report Reviewed and Image Reviewed
Carotid Ultrasound: Ordered and Pending
Echocardiogram: Report Reviewed
Labs: Report Reviewed
[2023-10-19 08:17] LABS: Glucose - Point of Care 109 mg/dl (70-99)
[2023-10-19] MEDS: CARDIZEM CD 180 MG PO (09:21)
[2023-10-19] MEDS: COUMADIN 2 MG PO (09:21)
[2023-10-19] MEDS: FARXIGA 10 MG PO (09:22)
[2023-10-19] MEDS: FLOMAX 0.400000000000000022 MG PO (09:22)
[2023-10-19] MEDS: PROSCAR 5 MG PO (09:22)
[2023-10-19] MEDS: LASIX 80 MG PO (09:23)
[2023-10-19 11:13] VITALS: BP 120/65; BP 121/63; BP 122/62; PULSE 62; PULSE 68; PULSE 82
[2023-10-19 11:18] LABS: Glucose - Point of Care 102 mg/dl (70-99)
--- NOTE | 2023-10-19 12:23 | W.PN.CD ---
Today's Communication / Plan
-
Impression / Plan
-
D/w patient at length. His INR is somewhat labile (checks weekly). I recommended he switch NOAC - Eliquis 2.5 po BID with close follow up of creatinine (it is exactly 1.5)
Follow up Luke Delong Nov 01 at 9:20
Physical Exam
Vital Signs/Labs
Vital Signs
Temp Pulse Resp BP Pulse Ox
36.5 C 62 16 121/63 99
10/19/23 11:13 10/19/23 11:13 10/19/23 11:13 10/19/23 11:13 10/19/23 11:13
10/18/23 10/19/23 10/20/23
06:59 06:59 06:59
Actual Weight 166 lb 4.8 oz 152 lb 8 oz
10/18/23 04:18
10/18/23 04:18
PT 19.7 Sec (11.4-14.6) H 10/19/23 05:33
INR 1.65 10/19/23 05:33
APTT 34.9 Sec (23.4-35.0) 10/17/23 23:48
Triglycerides 71 mg/dl (10-149) 10/18/23 04:18
LDL Cholesterol, Calc 67 mg/dl 10/18/23 04:18
VLDL Cholesterol, Calc 14 mg/dl (0-30) 10/18/23 04:18
HDL Cholesterol 66 mg/dl 10/18/23 04:18
Data Reviewed
-
Date of Service: October 19, 2023
[2023-10-19] MEDS: LOW STRENGTH ASPIRIN 81 MG PO (13:02)
[2023-10-19] MEDS: NON-FORMULARY ITEM PO (13:58)
--- NOTE | 2023-10-19 15:02 | W.PN.HOSP.TC ---
Today's Communication/Plan
-
Discharged today
Continue atorvastatin after discharge
Started him on Eliquis 2.5 mg twice daily, first dose in the evening today.
Outpatient physical therapy
Assessment / Plan
Assessment / Plan
Patient is an 83y M with PMH significant for CHF, A-Fib and CKD who presents to ED for evaluation of right-sided weakness, ataxia and headache.
Acute ischemic stroke, possibly embolic left hemisphere CVA
Conditions prior to admission:
Permanent atrial fibrillation
Anticoagulation with Coumadin
Chronic CHF preserved EF
Diabetes type 2
CKD stage III
BPH
Impression/plan:
#Acute left hemispheric CVA, possibly embolic in the settings of subtherapeutic INR[1.5] in patient with atrial fibrillation.
CT head unremarkable
MRI 10/18/23: There is a small acute/subacute nonhemorrhagic infarct in the left gregory radiata. No significant adjacent edema or mass effect.
Moderate volume loss. Moderate leukoaraiosis.
Patient was not a candidate for lytic treatment or IAT.
Neurologically stable
Carotid ultrasound 10/19/2023: Essentially unremarkable appearance of the carotid arteries bilaterally. No atherosclerotic plaques or areas of significant luminal narrowing appreciated.
PT OT evaluation: Recommended outpatient physical therapy.
#Permanent atrial fibrillation
Rate control with Cardizem.
Anticoagulation as above
#Chronic CHF preserved EF.
Volume status compensated
Resume Lasix and spironolactone.
Follow daily weights and renal function
#CKD stage III. Baseline creatinine 1.5�1.6
Follow creatinine while on diuretics
Creatinine 1.5 today, BUN 58
#Diabetes type 2.
Hemoglobin A1c 5.4.
Okay to resume Farxiga
#BPH
Continue dutasteride.
Resume Flomax and monitor for hypotension.
#Ulcerative colitis with no evidence for acute exacerbation.
On mesalamine
Anticipated Discharge: Today
Subjective/Interval History
-
Date of Service: October 19, 2023
No acute overnight events, reports walking without difficulty, right hand weakness has not improved much.
Objective Data
-
Labs:
Laboratory Results
10/19/23
05:33
PT 19.7 H
INR 1.65
Vital Signs:
Vital Signs
Temp Pulse Resp BP Pulse Ox
97.7 F 62 16 121/63 99
10/19/23 11:13 10/19/23 11:13 10/19/23 11:13 10/19/23 11:13 10/19/23 11:13
I&O
10/18/23 10/19/23 10/20/23
06:59 06:59 06:59
Intake Total 360 / 360 1800 / 1800
Output Total 900 / 900 440 / 440
Balance -540 / -540 1360 / 1360
Review of Systems
-
All other systems: Reviewed and negative (Except as mentioned above)
Physical Exam
-
General: Well Developed and Well Nourished
HEENT: Normocephalic and Atraumatic
Respiratory: Clear to Auscultation
Cardiac: S1/S2
Neuro: Awake, Alert, Oriented, AO x 3, No Motor Deficits and Other (Cranial nerves II through XII grossly intact, sensations intact, power 5/5 throughout)
Psych: Calm
--- NOTE | 2023-10-19 15:14 | CM ---
Reviewed the chart notes and spoke with the patient at the bedside. IMM reviewed. The patient anticipates being discharged to home with no needs. CM continues to be available to patient/family and is monitoring medical plan for needs at discharge.
Plan: Discharge to home when medically stable.
[2023-10-19] MEDS: NON-FORMULARY ITEM 1.5 GRAMS PO (15:21)
[2023-10-19 15:30] VITALS: BP 105/54
--- NOTE | 2023-10-19 15:46 | W.PN.UPDATE ---
Update Note
Progress Note Update
Patient seen and examined
Discussed with resident
Discussed with cardiology
Assessment and plan:
Acute left hemispheric CVA.
Presenting with right upper extremity paresthesia
Was not a candidate for lytic treatment
Improved neurologically with no focal findings on exam.
Patient with permanent atrial fibrillation on anticoagulation Coumadin. 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
Carotid ultrasound findings not consistent with any obstruction reducing risk for atherosclerotic event.
After long discussion, patient agrees to transition to NOAC. While INR remains in the subtherapeutic range, will transition to Eliquis at lower dose 2.5 mg twice daily according to patient age and renal clearance
Okay to stop aspirin
Continue statin
A-fib rate controlled with diltiazem.
Continue Farxiga and spironolactone
Continue mesalamine.
Stable for discharge home.
--- NOTE | 2023-10-19 15:48 | W.DCSUMMARY ---
Discharge Summary
Discharge Data
Date of Admission: 10/18/23
Date of Discharge: 10/19/23
-
Pending Results: No
Hospital Course
Discharge diagnosis:
1. Acute CVA
2. Permanent A-fib
3. Chronic kidney disease stage III
Hospital course:
83-year-old male with past medical history significant for permanent A-fib on Coumadin, CKD stage III, chronic HFpEF presents to the ER complaining of right-handed tingling, numbness weakness, ataxia and frontal headache. The patient was dropping
things when holding with his right hand, and he also noticed some difficulty walking. All the symptoms have started on the morning of 10-17-2023. No history of falls/trauma, vision abnormalities, aphasia, dysphagia, chest pain, palpitations, SOB. CT
head in the ER was negative for any acute findings. NIHSS was a 2 for RUE drift and mild loss of sensation. He is taking Coumadin for Afib and his INR was subtherapeutic at 1.56. Patient states he did not miss any warfarin doses. He was not a
candidate for TNK/tPA due to Coumadin usage, outside of time window, and NIHSS<6. Patient was started on low-dose atorvastatin. Carotid ultrasound findings showed no evidence of significant stenosis/obstruction. Patient advised to start on NOAC,
Eliquis 2.5 mg twice daily. His A-fib is rate controlled with diltiazem. Lasix and spironolactone were resumed, renal function/daily weights being monitored. Patient improved neurologically with no focal findings on clinical exam. PT evaluation
done. Patient is stable to be discharged home with outpatient physical therapy.
Discharge Plan
-
Patient Disposition: Home (Routine Discharge)
Discharge Diagnosis/Procedures: Acute CVA
CKD stage III
Congestive heart failure with preserved ejection fraction
Diet: Low Cholesterol and Diabetic, Carb Controlled
Referrals:
Roby Coffman DO [Family Provider] -
Prescriptions:
New
Eliquis 2.5 mg Tablet
2.5 mg PO BID Qty: 60 0RF
Continued
fluticasone propionate 50 mcg/actuation [place],Suspension
1 spray INTRANASAL BIDPRN PRN (Reason: allergies) Qty: 0
loratadine 10 MG tablet
20 mg PO HS
dutasteride 0.5 MG capsule
0.5 mg PO DAILY
spironolactone 25 mg tablet
25 mg PO HS
tamsulosin 0.4 mg capsule
0.4 mg PO DAILY
dapagliflozin propanediol [Farxiga] 10 mg tablet
10 mg PO DAILY
diltiazem HCl 180 mg Capsule,Extended Release 24 Hr
180 mg PO DAILY
halobetasol propionate 0.05 % cream
1 applic TOPICAL BID
carboxymethylcellulose sodium 1 % Drops, Liquid Gel
2 drp BOTH EYES BID
cholecalciferol (vitamin D3) 25 mcg (1,000 unit) Tablet
25 mcg PO HS
mesalamine 0.375 gram capsule,extended release 24hr
1.5 g PO DAILY
PreserVision AREDS 2,148 mcg-113 mg-45 mg-17.4mg Tablet
1 tab PO DAILY
furosemide 80 mg tablet
80 mg PO BID
Angelica
2 tab PO DAILY
Discontinued
warfarin 4 mg Tablet
4 mg PO MOFR@0800
warfarin 4 mg Tablet
2 mg PO SUTUWETHSA@0800
Discharge Orders:
Discharge Patient (As Directed); Ordered 10/19/23
Ordered By: Jony Nuñez
Discharge Date and Time
Print Language: KOREAN
--- NOTE | 2023-10-19 15:48 | W.DS.TRANS ---
DC Summary - Supervisor Agency Appointments
-
Discharge Instructions:
Sleep Apnea Risk Intermediate
Instructions:
Stand-Alone Forms:
Changes to Home Medications: Yes
Discharge Medications:
DC Medications w/original date entered in [employer]
dutasteride 0.5 mg capsule 0.5 mg PO DAILY Urinary Issue 04/30/17
fluticasone propionate 50 mcg/actuation nasal spray,suspension 1 spray intranasal BIDPRN PRN allergies ##0 04/30/17
loratadine 10 mg tablet 20 mg PO HS Allergies 04/30/17
dapagliflozin propanediol 10 mg tablet (Farxiga) 10 mg PO DAILY heart failure 03/22/23
spironolactone 25 mg tablet 25 mg PO HS Fluid Retention/Swelling 03/22/23
tamsulosin 0.4 mg capsule 0.4 mg PO DAILY Urinary Issue 03/22/23
Angelica 2 tab PO DAILY Allergies 10/18/23
carboxymethylcellulose sodium 1 % eye liquid gel drops 2 drp BOTH EYES BID dry eyes 10/18/23
cholecalciferol (vitamin D3) 25 mcg (1,000 unit) tablet 25 mcg PO HS Supplement 10/18/23
diltiazem HCl 180 mg capsule,24 hr,extended release 180 mg PO DAILY Blood Pressure 10/18/23
furosemide 80 mg tablet 80 mg PO BID Fluid Retention/Swelling 10/18/23
halobetasol propionate 0.05 % topical cream 1 applic topical BID Skin Issues 10/18/23
mesalamine 0.375 gram capsule,extended release 24 hr 1.5 g PO DAILY ulcerative colitis 10/18/23
vitamins A,C,W-affa-frjhti 2,148 mcg-113 mg-45 mg-17.4 mg tablet (PreserVision AREDS) 1 tab PO DAILY Supplement 10/18/23
warfarin 4 mg tablet 2 mg PO SUTUWETHSA@0800 Blood Clot Prevention/AFib 10/18/23
warfarin 4 mg tablet 4 mg PO MOFR@0800 Blood Clot Prevention/AFib 10/18/23
Home Medication Changes
Warfarin discontinued
Eliquis 2.5 mg, twice daily, first dose today evening
Pending Results: No
[2023-10-19 17:15] LABS: Glucose - Point of Care 94 mg/dl (70-99)
[2023-10-19] MEDS: LIPITOR 10 MG PO (17:49)
== END 2023-10-19 18:49 | disposition home or self-care (01) | DRG 65 ==
LOC: 2 NORTH 01:18
PROVIDERS: ADMITTING PHYSICIAN Hospitalist; ATTENDING PHYSICIAN Internal Medicine; CONSULT PHYSICIAN Internal Medicine Cardiovascular Disease; CONSULT PHYSICIAN Psychiatry & Neurology Neurology; EMERGENCY PHYSICIAN Emergency Medicine; FAMILY PHYSICIAN Family Medicine
DX: I63.40 Cerebral infarction due to embolism of unspecified cerebral artery (principal); I13.0 Hypertensive heart and chronic kidney disease with heart failure and stage 1 through stage 4 chronic kidney disease, or unspecified chronic kidney disease; I48.21 Permanent atrial fibrillation; I50.32 Chronic diastolic (congestive) heart failure; K51.90 Ulcerative colitis, unspecified, without complications; Z87.891 Personal history of nicotine dependence; Z79.01 Long term (current) use of anticoagulants; N18.30 Chronic kidney disease, stage 3 unspecified; E11.22 Type 2 diabetes mellitus with diabetic chronic kidney disease; N40.0 Benign prostatic hyperplasia without lower urinary tract symptoms; E11.9 Type 2 diabetes mellitus without complications; R29.702 NIHSS score 2; Z11.52 Encounter for screening for COVID-19
CPT/HCPCS: 70450; 70551; 80048; 80061; 82962; 83036; 84443; 85025; 85027; 85610; 85730; 87070; 87811; 92523; 92610; 93005; 93880; 97112; 97116; 97163; 97166; 97530; 99291

== ENCOUNTER 2024-01-06 18:23 | Emergency (ER) | payer SELFPAY ==
[2024-01-06 18:25] VITALS: BP 142/108
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
[2024-01-06 19:34] VITALS: BP 103/64
== END 2024-01-06 21:28 | disposition home or self-care (01) ==
LOC: EMR 18:23
PROVIDERS: EMERGENCY PHYSICIAN Emergency Medicine; FAMILY PHYSICIAN Family Medicine
DX: S06.5X0A Traumatic subdural hemorrhage without loss of consciousness, initial encounter (principal); S16.1XXA Strain of muscle, fascia and tendon at neck level, initial encounter; R51.9 Headache, unspecified; V49.40XA Driver injured in collision with unspecified motor vehicles in traffic accident, initial encounter; Y92.410 Unspecified street and highway as the place of occurrence of the external cause; I48.91 Unspecified atrial fibrillation; I50.9 Heart failure, unspecified; N40.0 Benign prostatic hyperplasia without lower urinary tract symptoms; K52.9 Noninfective gastroenteritis and colitis, unspecified; M19.90 Unspecified osteoarthritis, unspecified site; J45.909 Unspecified asthma, uncomplicated; Z79.01 Long term (current) use of anticoagulants; Z96.641 Presence of right artificial hip joint; Z96.653 Presence of artificial knee joint, bilateral; Z86.73 Personal history of transient ischemic attack (TIA), and cerebral infarction without residual deficits; Z87.891 Personal history of nicotine dependence; Z85.828 Personal history of other malignant neoplasm of skin
CPT/HCPCS: 99284; 70450; 72125

== ENCOUNTER → 2024-01-10 16:31 | Outpatient (REF) | payer OTHER, MEDICARE, SELFPAY | LOC: MRI 3T 16:31 | PROVIDERS: ATTENDING PHYSICIAN Emergency Medicine; FAMILY PHYSICIAN Family Medicine | DX: R51.9 Headache, unspecified (principal); M54.2 Cervicalgia; V89.2XXA Person injured in unspecified motor-vehicle accident, traffic, initial encounter; R93.0 Abnormal findings on diagnostic imaging of skull and head, not elsewhere classified | CPT/HCPCS: 70553; 72156; A9575 ==

== ENCOUNTER 2024-01-10 18:40 | Emergency (ER) | payer OTHER, MEDICARE, SELFPAY ==
[2024-01-10 18:43] VITALS: BP 149/71
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
[2024-01-10 19:46] VITALS: BP 129/65
[2024-01-10 19:51] VITALS: BMI 24.1
[2024-01-10 20:03] LABS: % Basophils 0.7 % (0-2); % Eosinophils 2.4 % (0-6); % Immature Granulocytes 0.3 % (0-0.5); % Lymphocytes 9.9 % (20.5-51.1); % Monocytes 9.5 % (1.7-9.3); % Neutrophils 77.2 % (42.2-75.2); Absolute Basophils 0.1 10^3/uL (0-0.2); Absolute Eosinophils 0.2 10^3/uL (0-0.7); Absolute Lymphocytes 0.7 10^3/uL (1.2-3.4); Absolute Monocytes 0.7 10^3/uL (0.1-0.6); Absolute Neutrophils 5.8 10^3/uL (1.4-6.5); Hematocrit 43.2 % (39.0-52.0); Hemoglobin 15.5 g/dL (13.0-18.0); Mean Corp Hgb Conc. 35.9 g/dL (33.0-37.0); Mean Corpuscular Hgb 33.3 pg (27.0-31.0); Mean Corpuscular Volume 92.9 fL (80.0-94.0); Mean Platelet Volume 10.4 fL (7.4-10.4); Nucleated Red Blood Cells % 0 % (-); Platelet Count 147 10^3/uL (130-400); Red Blood Cell Count 4.65 10^6/uL (4.70-6.10); Red Cell Dist. Width 13.5 % (11.5-14.5); White Blood Cell Count 7.5 10^3/uL (4.8-10.8)
[2024-01-10 20:18] LABS: INR 1.18; PT 14.8 Sec (11.4-14.6)
[2024-01-10 20:19] LABS: APTT 34.9 Sec (23.4-35.0)
[2024-01-10 20:29] LABS: ALT (SGPT) 24 U/L (0-50); AST (SGOT) 35 U/L (17-59); Alkaline Phosphatase 112 U/L (38-126); Blood Urea Nitrogen 51 mg/dl (9-20); Calcium 9.8 mg/dl (8.4-10.2); Carbon Dioxide 26 mmol/L (22-30); Chloride 99 mmol/L (98-107); Estimated Creatinine Clearance 38 ml/min; Glucose 88 mg/dl (70-99); Potassium 4.2 mmol/L (3.5-5.1); Sodium 138 mmol/L (135-145); Total Bilirubin 0.9 mg/dl (0.2-1.3); Total Protein 8.5 g/dl (6.3-8.2); eGFR 45.34
== END 2024-01-10 22:07 | disposition home or self-care (01) ==
LOC: EMR 18:40
PROVIDERS: CONSULT PHYSICIAN Neurological Surgery; EMERGENCY PHYSICIAN Student in an Organized Health Care Education/Training Program; FAMILY PHYSICIAN Family Medicine
DX: S06.5X0A Traumatic subdural hemorrhage without loss of consciousness, initial encounter (principal); R51.9 Headache, unspecified; V49.9XXA Car occupant (driver) (passenger) injured in unspecified traffic accident, initial encounter; I48.91 Unspecified atrial fibrillation; I50.9 Heart failure, unspecified; I38 Endocarditis, valve unspecified; N40.0 Benign prostatic hyperplasia without lower urinary tract symptoms; Z79.01 Long term (current) use of anticoagulants; Z96.641 Presence of right artificial hip joint; Z96.652 Presence of left artificial knee joint
CPT/HCPCS: 99283; 80053; 85025; 85610; 85730; 93005

== ENCOUNTER → 2024-01-16 14:21 | Outpatient (REF) | payer OTHER, SELFPAY | LOC: HWRAD 14:21 | PROVIDERS: ATTENDING PHYSICIAN Neurological Surgery; FAMILY PHYSICIAN Family Medicine | DX: S06.5X0A Traumatic subdural hemorrhage without loss of consciousness, initial encounter (principal) | CPT/HCPCS: 70450 ==

== ENCOUNTER → 2024-02-20 08:26 | Outpatient (REF) | payer OTHER, SELFPAY | LOC: HWRAD 08:26 | PROVIDERS: ATTENDING PHYSICIAN Physician Assistant Medical; FAMILY PHYSICIAN Family Medicine | DX: S06.5XAA Traumatic subdural hemorrhage with loss of consciousness status unknown, initial encounter (principal) | CPT/HCPCS: 70450 ==

== ENCOUNTER → 2024-02-20 08:31 | Outpatient (REF) | payer MEDICARE, OTHER, SELFPAY ==
[2024-02-20 12:50] LABS: % Eosinophils 3.3 % (0-6); % Immature Granulocytes 0.2 % (0-0.5); % Lymphocytes 11.5 % (20.5-51.1); % Monocytes 12.7 % (1.7-9.3); % Neutrophils 71.3 % (42.2-75.2); Absolute Basophils 0.1 10^3/uL (0-0.2); Absolute Eosinophils 0.2 10^3/uL (0-0.7); Absolute Lymphocytes 0.7 10^3/uL (1.2-3.4); Absolute Monocytes 0.7 10^3/uL (0.1-0.6); Absolute Neutrophils 4.1 10^3/uL (1.4-6.5); Hematocrit 42.3 % (39.0-52.0); Hemoglobin 14.7 g/dL (13.0-18.0); Mean Corp Hgb Conc. 34.8 g/dL (33.0-37.0); Mean Corpuscular Hgb 33.1 pg (27.0-31.0); Mean Corpuscular Volume 95.3 fL (80.0-94.0); Nucleated Red Blood Cells % 0 % (-); Platelet Count 133 10^3/uL (130-400); Red Blood Cell Count 4.44 10^6/uL (4.70-6.10); Red Cell Dist. Width 12.6 % (11.5-14.5); White Blood Cell Count 5.8 10^3/uL (4.8-10.8)
[2024-02-20 13:17] LABS: ALT (SGPT) 17 U/L (0-50); AST (SGOT) 26 U/L (17-59); Albumin 4.3 g/dl (3.5-5.0); Alkaline Phosphatase 89 U/L (38-126); Blood Urea Nitrogen 47 mg/dl (9-20); Calcium 9.2 mg/dl (8.4-10.2); Carbon Dioxide 29 mmol/L (22-30); Chloride 103 mmol/L (98-107); Glucose 92 mg/dl (70-99); HDL Cholesterol 55 mg/dl; Iron 103 ug/dl (49-181); LDL Cholesterol, Calculated 38 mg/dl; Potassium 3.9 mmol/L (3.5-5.1); Sodium 137 mmol/L (135-145); Total Bilirubin 0.7 mg/dl (0.2-1.3); Total Cholesterol 108 mg/dl (50-199); Triglyceride 77 mg/dl (10-149); Very Low Density Lipoprotein 15 mg/dl (0-30); eGFR 41.96
[2024-02-20 13:28] LABS: Microalbumin, Random Urine < 0.6 mg/dl (0.6-1.7)
[2024-02-20 14:34] LABS: Vitamin B12 311 pg/ml (239-931)
== END ==
LOC: HWLAB 08:31
PROVIDERS: ATTENDING PHYSICIAN Family Medicine
DX: N18.31 Chronic kidney disease, stage 3a (principal); E78.2 Mixed hyperlipidemia; D69.2 Other nonthrombocytopenic purpura
CPT/HCPCS: 36415; 80053; 80061; 82043; 82570; 82607; 83540; 85025

== ENCOUNTER 2024-03-09 16:32 | Emergency (ER) | payer MEDICARE, OTHER, SELFPAY ==
[2024-03-09 16:41] VITALS: BP 124/65
[2024-03-09 18:08] VITALS: BP 132/64
[2024-03-09 18:28] VITALS: BMI 23.8
[2024-03-09 19:01] VITALS: BP 119/59
--- NOTE | 2024-03-09 23:39 | ED.MUSCINJ ---
HPI-Injury
General
Chief Complaint: Fall
Source: patient
Exam Limitations: none
Time Seen by Provider: 03/09/24 17:35
Nursing documentation reviewed up to this point in time: agreed with
History of Present Illness-Injury
Initial Injury comments:
Patient states he was sitting on a stool, leaned forward and stool went out from under him. He fell back onto the floor. Hit back of head on floor. No LOC. Has large superficial skin tear to left upper arm. 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
Past History
Past History
ED Past Medical History: Arrthythmia (afib), CHF, Valvular disease and Other (BPH)
ED Past Surgical History: Orthopedic (Left knee replacement, right hip replacement. Right shoulder surgery) and Other (hernia sx)
Social History
Tobacco: Non-smoker
Alcohol: Occasional
Drug: None
Personal:
Living: with family
Employment: Retired
Family History
Family History: Other (n/c)
Review of Systems
Review of Systems
Allergies reviewed?: Yes
All Other Systems: ROS reviewed and negative except as documented in HPI and ROS
Constitutional: Reports no symptoms
EENT: Reports no symptoms
Respiratory: Reports no symptoms
Cardiac: Reports no symptoms
ABD/GI: Reports no symptoms
: Reports no symptoms
Musculoskeletal: Reports no symptoms
Skin: Reports other (large superficial skin tear left upper arm)
Neurological: Reports no symptoms
Psychiatric: Reports no symptoms
Phy Exam
General Physical Exam
General Presentation: well appearing and no apparent distress
General age: appears stated age
General Skin: warm and dry
General Habitus: normal
General Mental: alert
General Hydration: appears well hydrated
Pulmonary Exam
Pulmonary Exam: no respiratory distress and chest non tender
Gastrointestinal Exam
Gastrointestinal Exam: non tender and soft
Neurological Exam
Neurological Exam: alert, oriented x3, CN II-XII intact, no motor deficits, no sensory deficits, speech normal and normal gait
Rene Coma Scale
Eye Opening: Spontaneous
Verbal Response: Oriented
Motor Response: Obeys Commands
GCS Total Score: 15
Musculoskeletal Exam
Musculoskeletal Exam: full ROM and neuro vasc intact
Skin Exam
Skin Exam: normal color, warm/dry, no rash and other (Large superficial skin tear left upper arm. Nonstick dressing applied by RN.)
Psychiatric Exam
Psychiatric Exam: normal mood/affect
Injury Course
Orders/Labs/Results
Orders:
Orders
03/09/24 16:43
CT Head W/o Iv Contrast Urgent
Comment:
Reason For Exam: fall
*Radiology
Radiology exam reviewed: radiology read reviewed
*Pulse Oximetry
Patient hypoxic: no
*Critical Care Note
Total Time (30-74mins, 75-104mins- exclusive of procedures): Not Applicable
ED Attending Note
-
Portions of this chart may have been created with voice recognition software.� Occasional wrong word or��sound alike� substitutions may have occurred due to the inherent limitations of voice recognition software.
Discharge Plan
Departure
Patient Disposition: Home (Routine Discharge)
Date of Disposition: 03/09/24
Time of Disposition: 19:38
Patient with high blood pressure during this ER visit?: No
Condition: Good
Covid-19: Not Applicable
Discharge Problem:
Head injury, Multiple skin tears
Instructions: Wound Care (DC), Head Injury in Adults (DC), Preventing falls in adults
Prescriptions:
No Action
fluticasone propionate 50 mcg/actuation [place],Suspension
1 spray INTRANASAL DAILYPRN PRN (Reason: allergies) Qty: 0
loratadine 10 MG tablet
20 mg PO HS
dutasteride 0.5 MG capsule
0.5 mg PO DAILY
spironolactone 25 mg tablet
25 mg PO HS
tamsulosin 0.4 mg capsule
0.4 mg PO DAILY
dapagliflozin propanediol [Farxiga] 10 mg tablet
10 mg PO DAILY
diltiazem HCl 180 mg Capsule,Extended Release 24 Hr
180 mg PO DAILY
halobetasol propionate 0.05 % cream
1 applic TOPICAL DAILYPRN PRN (Reason: skin issues)
cholecalciferol (vitamin D3) 25 mcg (1,000 unit) Tablet
25 mcg PO HS
mesalamine 0.375 gram capsule,extended release 24hr
1.5 g PO DAILY
PreserVision AREDS 2,148 mcg-113 mg-45 mg-17.4mg Tablet
1 tab PO DAILY
furosemide 80 mg tablet
80 mg PO BID
Angelica
2 tab PO DAILY
Eliquis 2.5 mg Tablet
2.5 mg PO BID Qty: 60 0RF
atorvastatin 10 mg Tablet
10 mg PO HS
Dupixent Pen 300 mg/2 mL Pen Injector
300 mg SC Q2W
Referrals:
Roby Coffman DO [Family Provider] - Follow up in 2-3 days
Interventions
Interventions:
*Risk Screen - Suicide Last Done: 03/09/24 16:41
*General Assessment Last Done: 03/09/24 16:41
*Neglect/Abuse Screening Last Done: 03/09/24 16:41
ED- Fall Risk Assessment Last Done: 03/09/24 18:31
*ED COVID-19 Vaccine History Last Done: 03/09/24 16:41
*Nursing Disposition Last Done: 03/09/24 20:01
ED-Musculoskeletal Assessment Last Done: 03/09/24 18:31
ED- Neurological Assessment Last Done: 03/09/24 18:31
ED-Skin Assessment Last Done: 03/09/24 18:31
Discharge Date and Time
Discharge Date/Time: 03/09/24 20:02
Print Language: FRISIAN
== END 2024-03-09 20:02 | disposition home or self-care (01) ==
LOC: EMR 16:32
PROVIDERS: EMERGENCY PHYSICIAN Emergency Medicine; FAMILY PHYSICIAN Family Medicine
DX: S09.90XA Unspecified injury of head, initial encounter (principal); S41.112A Laceration without foreign body of left upper arm, initial encounter; W08.XXXA Fall from other furniture, initial encounter
CPT/HCPCS: 99284; 70450

== ENCOUNTER → 2024-03-15 12:28 | Outpatient (REF) | payer MEDICARE, OTHER, SELFPAY | LOC: WOUND 12:28 | PROVIDERS: ATTENDING PHYSICIAN Surgery; FAMILY PHYSICIAN Family Medicine | DX: S40.812A Abrasion of left upper arm, initial encounter (principal); S50.312A Abrasion of left elbow, initial encounter; I48.21 Permanent atrial fibrillation; I36.1 Nonrheumatic tricuspid (valve) insufficiency; W08.XXXA Fall from other furniture, initial encounter; Z79.01 Long term (current) use of anticoagulants | CPT/HCPCS: 99203 ==

== ENCOUNTER → 2024-03-23 08:33 | Outpatient (REF) | payer MEDICARE, OTHER, SELFPAY | LOC: WOUND 08:33 | PROVIDERS: ATTENDING PHYSICIAN Surgery; FAMILY PHYSICIAN Family Medicine | DX: S40.812A Abrasion of left upper arm, initial encounter (principal); S50.312A Abrasion of left elbow, initial encounter; I48.21 Permanent atrial fibrillation; I36.1 Nonrheumatic tricuspid (valve) insufficiency; Z79.01 Long term (current) use of anticoagulants; W08.XXXA Fall from other furniture, initial encounter | CPT/HCPCS: 99213 ==

== ENCOUNTER → 2024-05-04 08:32 | Outpatient (REF) | payer MEDICARE, OTHER, SELFPAY | LOC: WOUND 08:32 | PROVIDERS: ATTENDING PHYSICIAN Surgery; FAMILY PHYSICIAN Emergency Medicine | DX: S40.812A Abrasion of left upper arm, initial encounter (principal); S50.312A Abrasion of left elbow, initial encounter; Z79.01 Long term (current) use of anticoagulants; I48.21 Permanent atrial fibrillation; I36.1 Nonrheumatic tricuspid (valve) insufficiency; W08.XXXA Fall from other furniture, initial encounter | CPT/HCPCS: 99212 ==

== ENCOUNTER → 2024-05-23 09:23 | Outpatient (REF) | payer MEDICARE, OTHER, SELFPAY | LOC: HWRAD 09:23 | PROVIDERS: ATTENDING PHYSICIAN Emergency Medicine | DX: R10.84 Generalized abdominal pain (principal) | CPT/HCPCS: 76700 ==

== ENCOUNTER → 2024-05-25 10:09 | Outpatient (REF) | payer MEDICARE, OTHER, SELFPAY | LOC: RAD 10:09 | PROVIDERS: ATTENDING PHYSICIAN Emergency Medicine | DX: R10.84 Generalized abdominal pain (principal) | CPT/HCPCS: 74246 ==

== ENCOUNTER 2024-07-10 21:03 | Emergency (ER) | payer MEDICARE, OTHER, SELFPAY ==
[2024-07-10 21:16] VITALS: BP 129/72
[2024-07-10 21:42] LABS: % Basophils 0.4 % (0-2); % Immature Granulocytes 0.4 % (0-0.5); % Lymphocytes 6.6 % (20.5-51.1); % Monocytes 8.7 % (1.7-9.3); % Neutrophils 81.9 % (42.2-75.2); Absolute Eosinophils 0.2 10^3/uL (0-0.7); Absolute Lymphocytes 0.6 10^3/uL (1.2-3.4); Absolute Monocytes 0.8 10^3/uL (0.1-0.6); Absolute Neutrophils 7.3 10^3/uL (1.4-6.5); Hemoglobin 16.3 g/dL (13.0-18.0); Mean Corp Hgb Conc. 34.7 g/dL (33.0-37.0); Mean Corpuscular Hgb 32.2 pg (27.0-31.0); Mean Corpuscular Volume 92.9 fL (80.0-94.0); Mean Platelet Volume 9.7 fL (7.4-10.4); Nucleated Red Blood Cells % 0 % (-); Platelet Count 141 10^3/uL (130-400); Red Blood Cell Count 5.06 10^6/uL (4.70-6.10); Red Cell Dist. Width 13.8 % (11.5-14.5); White Blood Cell Count 8.9 10^3/uL (4.8-10.8)
[2024-07-10 21:57] LABS: ALT (SGPT) 22 U/L (0-50); AST (SGOT) 26 U/L (17-59); Albumin 4.8 g/dl (3.5-5.0); Alkaline Phosphatase 98 U/L (38-126); Blood Urea Nitrogen 52 mg/dl (9-20); Calcium 10.4 mg/dl (8.4-10.2); Carbon Dioxide 26 mmol/L (22-30); Chloride 95 mmol/L (98-107); Glucose 130 mg/dl (70-99); Lipase 81 U/L (23-300); Potassium 4.2 mmol/L (3.5-5.1); Sodium 136 mmol/L (135-145); Total Bilirubin 0.9 mg/dl (0.2-1.3); Total Protein 8.1 g/dl (6.3-8.2); eGFR 39.02
--- NOTE | 2024-07-10 22:09 | ED.GENMED ---
History of Present Illness
General
Chief Complaint: Abdominal Pain
Source: patient
Exam Limitations: none
Time Seen by Provider: 07/10/24 22:06
History of Present Illness
History of Present Illness:
This is a 83 year old male that comes in with c/o abd pain. States that he started with abd pain yesterday in the afternoon. States that he then felt better but he didn't eat. States that he slept. Then he got up and didn't feel good. States that he
went into the rec room, took his morning pills and then the pain started to get worse. States that is subsided but he did have some pain all day. States that he did eat some toast. Then at 5pm his gave him some eggs and the pain took off.
States that it had kind of moved to the right side. States that he also has a headache. Denies any fever, chills, chest pain, SOB, nausea, vomiting, diarrhea, dizziness, urinary burning.
Past History
Past History
ED Past Medical History: Arrthythmia (afib), Asthma, Cancer (Skin cancer), CHF, Valvular disease and Other (BPH, Brain bleed, Colitis, Concussion)
ED Past Surgical History: Orthopedic (Left and right knee replacement, right hip replacement. Right shoulder surgery) and Other (hernia sx, cataracts, Left retina detachment. )
Social History
Tobacco: Former smoker
Alcohol: Occasional
Drug: None
Personal:
Living: with family
Employment: Retired
Family History
Family History: Other (n/c)
Review of Systems
Review of Systems
All Other Systems: ROS reviewed and negative except as documented in HPI and ROS
Constitutional: Reports no symptoms; Denies fever or chills
EENT: Reports no symptoms
Respiratory: Reports no symptoms; Denies cough or trouble breathing
Cardiac: Reports no symptoms; Denies chest pain
ABD/GI: Reports abdominal pain; Denies nausea, vomiting or diarrhea
: Reports no symptoms; Denies dysuria, frequency or urgency
Musculoskeletal: Reports no symptoms
Skin: Reports no symptoms
Neurological: Reports headache; Denies dizzy
Psychiatric: Reports no symptoms
Phy Exam
General Physical Exam
General Presentation: no apparent distress
General age: appears stated age
General Skin: warm and dry
General Habitus: elderly
General Mental: alert
General Hydration: appears well hydrated
ENT Exam
ENT Exam: TM's normal, pharynx normal and neck supple
Eye Exam
Eye Exam: EOMI
Cardiovascular Exam
Cardiovascular Exam: normal peripheral pulses, irregularly irregular and other (Murmur)
Pulmonary Exam
Pulmonary Exam: lungs clear, no respiratory distress, no rales, chest non tender, no crackles, no rhonchi, no wheezing and no cough
Gastrointestinal Exam
Gastrointestinal Exam: normal bowel sounds, soft, no organomegaly, no pulsatile mass, non distended and tender (right sided abd tenderness with palpation)
Musculoskeletal Exam
Musculoskeletal Exam: full ROM and edema (Slight +1 pitting edema. )
Skin Exam
Skin Exam: normal color, warm/dry, no rash and no petechia
Psychiatric Exam
Psychiatric Exam: normal mood/affect
Course
Orders/Labs/Results
Orders:
Orders
07/10/24 21:28
Complete Blood Count/With Diff Urgent
Comprehensive Metabolic Panel Urgent
Lipase Urgent
07/10/24 23:04
Iohexol [Omnipaque] See Protocol PO NOW STA
07/10/24 23:05
0.9% Sodium Chloride 500 ml [Nss] 500 ml IV BOLUS
07/10/24 23:09
US Abdomen Complete/Upper Urgent
Comment:
Reason For Exam: Right sided abd pain
07/10/24 23:29
Urinalysis Reflex To Culture Urgent
Date Specimen was Collected: 07/10/24
Time Specimen was Collected: 23:24
07/11/24 01:15
CT Abd/pel (oral only)-DH Only Urgent
Reason For Exam: left sided abd pain
Abnormal Lab Results
07/10/24 07/10/24
21:28 23:29
MCH 32.2 H pg
(27.0-31.0)
Absolute Neuts (auto) 7.3 H 10^3/uL
(1.4-6.5)
Absolute Lymphs (auto) 0.6 L 10^3/uL
(1.2-3.4)
Absolute Monos (auto) 0.8 H 10^3/uL
(0.1-0.6)
Neutrophils % 81.9 H %
(42.2-75.2)
Lymphocytes % 6.6 L %
(20.5-51.1)
Chloride 95 L mmol/L
(98-107)
BUN 52 H mg/dl
(9-20)
Creatinine 1.7 H mg/dL
(0.7-1.3)
Glucose 130 H mg/dl
(70-99)
Calcium 10.4 H mg/dl
(8.4-10.2)
Urine Ketones Trace A
(Negative)
Urine Glucose Trace A
(Negative)
07/10/24 21:28
07/10/24 21:28
chloride slightly low. chronic renal insufficiency, hyperglycemia. calcium slightly elevated. lipase normal at 81, Urine negative for infection.
Vital Signs
Initial and Last Documented VS:
Initial Vital Signs
Temp Pulse Resp BP Pulse Ox
97.5 F 85 20 129/72 100
07/10/24 21:16 07/10/24 21:16 07/10/24 21:16 07/10/24 21:16 07/10/24 21:16
Last Documented Vital Signs
Temp Pulse Resp BP Pulse Ox
97.5 F 78 14 122/64 99
07/10/24 21:16 07/11/24 01:00 07/11/24 01:00 07/11/24 01:00 07/11/24 01:00
MDM/Problems Addressed
Differential Diagnosis Includes:
Diverticulitis, Colitis,
MDM/Problems Addressed:
This is a 83 year old male that comes in with c/o abd pain. State that this started yesterday and today it got worse after eating eggs tonight.
Will check labs and get CT scan. Will give IV fluids.
CT cont- Cholelithiasis. No significant bile duct dilation. Nodular liver contour. Inferior right hepatic lobe lesion, as seen on prior INOCENCIA. Correlate with prior workup. fat-containing left inguinal hernia.
back into see patient. Explained that he has diverticulitis. Will start patient on antibiotics and have patient follow up with the family doctor. Patient to return with any concerns. Encouraged patient to make sure that he is drinking water.
Chronic conditions affecting care:
colitis
Acute Exacerbation and/or Progression of Chronic Illness:
NA
*Radiology
Radiology exam reviewed: radiology read reviewed (US night hawk-small mobile tones in the gallbladder. no gallbladder wall thickening or pericholecystic fluid to indicate acute cholecystitis. Negative sonographic Ibanez's sign. No biliary ductal
dilation. The visualized common duct measures 4mm in caliber. 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 Bilateral renal
cyst. No hydronephrosis. Pancreas obscured by bowel gas. CT night hawk-Mild inflammatory changes and wall thickening near a diverticulum in the cecum (coronal series 202, image 22) and other (CT cont-suggestive of uncomplicated acute
diverticulitis. NO free air or fluid collection. Consider follow-up with colonoscopy to rule out underlying mass. Appendix is unremarkable. No bowel obstruction. No evidence for urolithiasis or hydronephrosis bilaterally. Probable cyst in the right
kidney. )
*Pulse Oximetry
Patient hypoxic: no
*EKG
Interpreted by ED Provider?: NA
Rate: EKG- N/A
*Rodent Exterminator Interpretation
Rate: Rodent Exterminator- N/A
*Critical Care Note
Total Time (30-74mins, 75-104mins- exclusive of procedures): Not Applicable
ED Attending Note
-
Portions of this chart may have been created with voice recognition software.� Occasional wrong word or��sound alike� substitutions may have occurred due to the inherent limitations of voice recognition software.
Discharge Plan
Departure
Patient Disposition: Home (Routine Discharge)
Date of Disposition: 07/11/24
Time of Disposition: 02:33
Patient with high blood pressure during this ER visit?: No
Condition: Good
Covid-19: Not Applicable
Discharge Problem:
Diverticulitis
Instructions: Diverticulitis (DC)
Prescriptions:
New
amoxicillin-pot clavulanate 875-125 mg tablet
1 tab PO BID Qty: 19 0RF
No Action
fluticasone propionate 50 mcg/actuation [place],Suspension
1 spray INTRANASAL DAILYPRN PRN (Reason: allergies) Qty: 0
loratadine 10 MG tablet
20 mg PO HS
dutasteride 0.5 MG capsule
0.5 mg PO DAILY
spironolactone 25 mg tablet
25 mg PO HS
tamsulosin 0.4 mg capsule
0.4 mg PO DAILY
dapagliflozin propanediol [Farxiga] 10 mg tablet
10 mg PO DAILY
diltiazem HCl 180 mg Capsule,Extended Release 24 Hr
180 mg PO DAILY
halobetasol propionate 0.05 % cream
1 applic TOPICAL DAILYPRN PRN (Reason: skin issues)
cholecalciferol (vitamin D3) 25 mcg (1,000 unit) Tablet
25 mcg PO HS
mesalamine 0.375 gram capsule,extended release 24hr
1.5 g PO DAILY
PreserVision AREDS 2,148 mcg-113 mg-45 mg-17.4mg Tablet
1 tab PO DAILY
furosemide 80 mg tablet
80 mg PO BID
Angelica
2 tab PO DAILY
Eliquis 2.5 mg Tablet
2.5 mg PO BID Qty: 60 0RF
atorvastatin 10 mg Tablet
10 mg PO HS
Dupixent Pen 300 mg/2 mL Pen Injector
300 mg SC Q2W
Referrals:
Alicia Frost MD [Family Provider] - Follow up in 5-7 days
Activity Restrictions/Additional Instructions:
As discussed, your blood work shows your chronic renal insufficiency. Please increase your water intake to 8-8oz glasses daily. Your CT shows that you have diverticulitis. You have been given your first dose of antibiotic here and a prescription has
been sent to your Pharmacy. Please take as directed until finished. Follow up with the family doctor in 5-7 days for recheck. IF YOU HAVE INCREAESED OR CHANGING PAIN, FEVER, OR YOU HAVE ANY OTHER CONCERNS PLEASE RETURN TO THE EMERGENCY ROOM.
Interventions
Interventions:
*Risk Screen - Suicide Last Done: 07/10/24 21:16
*General Assessment Last Done: 07/10/24 23:17
*Neglect/Abuse Screening Last Done: 07/10/24 21:16
ED- Fall Risk Assessment Last Done: 07/10/24 23:42
*ED COVID-19 Vaccine History Last Done: 07/10/24 23:17
FT-[id number] Assessment Last Done: 07/10/24 23:42
Discharge Date and Time
Print Language: COOK ISLANDER
[2024-07-10 23:17] VITALS: BMI 22.6
[2024-07-10 23:22] VITALS: BP 132/57
[2024-07-10] MEDS: OMNIPAQUE 50 ML PO (23:35)
[2024-07-10] MEDS: NSS 500 IV (23:35)
[2024-07-11 00:13] LABS: Urine Albumin Negative (Neg - Trace); Urine Character Clear (Clear); Urine Color Yellow; Urine Glucose Trace (Negative); Urine Leukocyte Negative (Negative); Urine Nitrite Negative (Negative); Urine Specific Gravity 1.015 (<1.030)
[2024-07-11 00:14] LABS: Urine Bilirubin Negative (Negative); Urine Ketone Trace (Negative); Urine Occult Blood Negative (Negative); Urine Urobilinogen Negative (Neg - 1+)
--- NOTE | 2024-07-11 00:33 | EDRN ---
Pt developed R side abdominal pain Tuesday afternoon that waxes and wanes. Pt notes when he eats something, the pain increases. Pt had toast and scrambled eggs and pain immediately worsened. 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
in December. Pt denies cp, sob, n/v/d/c, fever/cough, urinary symptoms. Pt felt chilled in ED.
[2024-07-11 01:00] VITALS: BP 122/64
[2024-07-11 02:00] VITALS: BP 131/75
[2024-07-11] MEDS: AUGMENTIN 875 MG/125 MG 1 TABLET PO (02:38)
== END 2024-07-11 02:59 | disposition home or self-care (01) ==
LOC: EMR 21:03
PROVIDERS: Clinical Nurse Specialist Family Health; Emergency Medicine; EMERGENCY PHYSICIAN Student in an Organized Health Care Education/Training Program; FAMILY PHYSICIAN Emergency Medicine
DX: K57.32 Diverticulitis of large intestine without perforation or abscess without bleeding (principal); Z87.891 Personal history of nicotine dependence
CPT/HCPCS: 99285; 96360; 74176; 76700; 80053; 81003; 83690; 85025

== ENCOUNTER → 2024-07-31 13:36 | Outpatient (REF) | payer MEDICARE, OTHER, SELFPAY | LOC: HWRAD 13:36 | PROVIDERS: ATTENDING PHYSICIAN Neurological Surgery; FAMILY PHYSICIAN Emergency Medicine | DX: S06.5XAA Traumatic subdural hemorrhage with loss of consciousness status unknown, initial encounter (principal) | CPT/HCPCS: 70450 ==

== ENCOUNTER → 2024-08-06 09:06 | Outpatient (REF) | payer MEDICARE, OTHER, SELFPAY ==
[2024-08-06 12:53] LABS: ALT (SGPT) 17 U/L (0-50); AST (SGOT) 25 U/L (17-59); Albumin 4.4 g/dl (3.5-5.0); Alkaline Phosphatase 91 U/L (38-126); Blood Urea Nitrogen 45 mg/dl (9-20); Calcium 9.2 mg/dl (8.4-10.2); Carbon Dioxide 27 mmol/L (22-30); Chloride 101 mmol/L (98-107); Glucose 89 mg/dl (70-99); Potassium 4.4 mmol/L (3.5-5.1); Sodium 136 mmol/L (135-145); Total Bilirubin 0.7 mg/dl (0.2-1.3); Total Protein 7.4 g/dl (6.3-8.2); eGFR 45.34
== END ==
LOC: HWLAB 09:06
PROVIDERS: ATTENDING PHYSICIAN Internal Medicine Cardiovascular Disease; FAMILY PHYSICIAN Emergency Medicine
DX: N18.31 Chronic kidney disease, stage 3a (principal); I50.32 Chronic diastolic (congestive) heart failure
CPT/HCPCS: 36415; 80053

== ENCOUNTER → 2024-08-24 13:58 | Outpatient (REF) | payer MEDICARE, OTHER, SELFPAY | LOC: WOUND 13:58 | PROVIDERS: ATTENDING PHYSICIAN Surgery; FAMILY PHYSICIAN Emergency Medicine | DX: L97.222 Non-pressure chronic ulcer of left calf with fat layer exposed (principal); I87.2 Venous insufficiency (chronic) (peripheral) | CPT/HCPCS: 11042; 11045; 99214 ==

== ENCOUNTER → 2024-08-27 14:16 | Outpatient (REF) | payer MEDICARE, OTHER, SELFPAY | LOC: WOUND 14:16 | PROVIDERS: ATTENDING PHYSICIAN Surgery; FAMILY PHYSICIAN Emergency Medicine | DX: L97.223 Non-pressure chronic ulcer of left calf with necrosis of muscle (principal); L03.116 Cellulitis of left lower limb; I87.2 Venous insufficiency (chronic) (peripheral) | CPT/HCPCS: G0463; 99213 ==

== ENCOUNTER 2024-08-27 22:48 | Inpatient (IN) | payer MEDICARE, OTHER, SELFPAY ==
[2024-08-27 14:50] VITALS: BP 124/64
[2024-08-27 15:11] LABS: % Basophils 0.7 % (0-2); % Eosinophils 2.6 % (0-6); % Immature Granulocytes 0.4 % (0-0.5); % Lymphocytes 7.1 % (20.5-51.1); % Monocytes 12.4 % (1.7-9.3); % Neutrophils 76.8 % (42.2-75.2); Absolute Basophils 0.1 10^3/uL (0-0.2); Absolute Eosinophils 0.2 10^3/uL (0-0.7); Absolute Lymphocytes 0.6 10^3/uL (1.2-3.4); Absolute Neutrophils 6.2 10^3/uL (1.4-6.5); Hematocrit 40.8 % (39.0-52.0); Hemoglobin 13.9 g/dL (13.0-18.0); Mean Corp Hgb Conc. 34.1 g/dL (33.0-37.0); Mean Corpuscular Hgb 32.7 pg (27.0-31.0); Mean Platelet Volume 9.6 fL (7.4-10.4); Nucleated Red Blood Cells % 0 % (-); Platelet Count 162 10^3/uL (130-400); Red Blood Cell Count 4.25 10^6/uL (4.70-6.10); Red Cell Dist. Width 14.1 % (11.5-14.5); White Blood Cell Count 8.1 10^3/uL (4.8-10.8)
[2024-08-27 15:41] LABS: ALT (SGPT) 14 U/L (0-50); AST (SGOT) 20 U/L (17-59); Albumin 4.3 g/dl (3.5-5.0); Alkaline Phosphatase 97 U/L (38-126); Blood Urea Nitrogen 46 mg/dl (9-20); Calcium 8.8 mg/dl (8.4-10.2); Carbon Dioxide 25 mmol/L (22-30); Chloride 101 mmol/L (98-107); Glucose 89 mg/dl (70-99); Sodium 137 mmol/L (135-145); Total Bilirubin 0.8 mg/dl (0.2-1.3); Total Protein 7.3 g/dl (6.3-8.2); eGFR 41.96
--- NOTE | 2024-08-27 16:58 | ED.GENMED ---
History of Present Illness
<Carson Morrison PA-C - Last Filed: 08/28/24 18:02>
General
Chief Complaint: Skin Problem
Source: patient and physician
Time Seen by Provider: 08/27/24 16:18
History of Present Illness
History of Present Illness:
83-year-old male with past medical history of atrial fibrillation, CHF, valvular disease, peripheral vascular disease presenting to the ER from wound care center for evaluation with anticipated admission for left lower remedy wound patient developed
earlier in the week last week after he accidentally punctured the anterior lower leg on a coffee table while playing with family dog. Patient was receiving localized wound care but at the wound care center today it was felt patient had worsening
edema, erythema and tenderness with concerns for worsening cellulitis and recommended for IV antibiotic treatment. Patient denies any fevers, chills, rigors, weakness or numbness to the extremity or any other concerns. Patient notes that his left
lower extremity is always a little bit more edematous in appearance and slightly dusky as well.
Past History
<Carson Morrison PA-C - Last Filed: 08/28/24 18:02>
Past History
ED Past Medical History: Arrthythmia (afib), Asthma, Cancer (Skin cancer), CHF, Valvular disease and Other (BPH, Brain bleed, Colitis, Concussion)
ED Past Surgical History: Orthopedic (Left and right knee replacement, right hip replacement. Right shoulder surgery) and Other (hernia sx, cataracts, Left retina detachment. )
Social History
Tobacco: Former smoker
Alcohol: Occasional
Drug: None
Personal:
Living: with family
Employment: Retired
Family History
Family History: Other (n/c)
Review of Systems
<Casron Morrison PA-C - Last Filed: 08/28/24 18:02>
Review of Systems
All Other Systems: ROS reviewed and negative except as documented in HPI and ROS
Phy Exam
<Carson Morrison PA-C - Last Filed: 08/28/24 18:02>
Physical Exam
Physical Exam:
GENERAL: Alert , in no apparent distress
EYE: conjunctiva clear
Head: Normocephalic atraumatic
NECK: Supple,
ENT: mmm.
LUNGS: no acute respiratory distress
NEUROLOGICAL: Alert and oriented
SKIN: Warm and dry, dusky appearance to bilateral lower extremities but left is certainly greater than right. There is also moderate circumferential edema to the entirety of the left lower leg below the knee. Wound with dressing over top to the
left anterolateral lower leg. bloodied discharge on dressing, no active bleeding.
MUSCULOSKELETAL: well perfused, easily palpable pedal pulses b/l. CR < 2 sec
PSYCH: Normal and appropriate interaction.
Scores
<Carson Morrison PA-C - Last Filed: 08/28/24 18:02>
Heart Failure Risk
Heart Failure Risk Score: Not Applicable
Heart Score for Chest Pain Patients
STEMI patient?: Not applicable
Withdrawal Assessment of Alcohol
Withdrawal Assessment Completed?: Not applicable
Course
<Carson Morrison PA-C - Last Filed: 08/28/24 18:02>
Orders/Labs/Results
Orders:
Orders
08/27/24 14:55
Complete Blood Count/With Diff Urgent
Comprehensive Metabolic Panel Urgent
08/27/24 16:31
CR Leg Tibia/fibula Left 2 Vw Urgent
Comment:
Reason For Exam: wound/edema
US Periph Venous LOWER Ext LT Urgent
Comment:
Reason For Exam: edema, wound
08/27/24 17:46
Vancomycin [Vancocin] 1,500 mg 0.9% Sodium Chloride 500 ml [Nss] 500 ml IV NOW
08/27/24 21:41
Admit/Transfer Patient As Directed
Co-Sign Provider:
Level of Care: Inpatient admission
Assign to:: Medical/Surgical
Physician / Group: Alina
Diagnosis: LLE Cellulitis
Reason for Hospitalization: IV abx
Expected length of stay greater than two midnights?: Yes
ELOS- Estimated Length of Stay in days: 3
I certify the patient meets the requirements for IP care: Yes
PRN Pain Medication Management As Directed
May give lesser potent ordered pain med per pt: Yes
preference::
Protocol:: Medication orders for pain may be administered in a
manner that supports deferring to patient preference
when the pt is:
- Requesting an ordered lesser potent pain medication.
Least to most potent pain medications are defined
as: acetaminophen < NSAID < tramadol < opioids
(morphine, oxycodone, hydromorphone).
- Requesting a lesser dose of the same medication IF
ORDERED.
- Requesting a less intrusive route of administration
if both routes are prescribed by the provider (PO <
IV).
08/27/24 21:44
Code Status As Directed
Resuscitation Status: Full Code
08/27/24 22:00
Flush (0.9% Sodium Chloride) [Flush (Nss)] See Dose Instructions IV PER PROTOCOL
08/28/24 00:19
Atorvastatin [Lipitor] 10 mg PO HS
Spironolactone [Aldactone] 25 mg PO HS
VANCOMYCIN Pharmacy to Dose [VANCOCIN Pharmacy to Dose] 1 each Pharmacy To Prepare [Call Pharmacy To Prepare] 0 ml IV PER PROTOCOL
08/28/24 00:19
WOUND/OSTOMY CONSULT Routine
Reason for Consult: LLE Wound
Activity As Directed
Activity Level: Out of Bed-Early Mobility
Intake/ Output As Directed
Frequency: Per unit guidelines
Vital Signs As Directed
Frequency: Per unit guidelines
Weight As Directed
Frequency: Daily
08/28/24 02:00
Loratadine [Claritin] 20 mg PO HS
08/28/24 04:59
Basic Metabolic Panel IN AM
Complete Blood Count/No Diff IN AM
08/28/24 Breakfast
Sodium, 2 Gram
At Your Request: Full Participation
08/28/24 08:00
Apixaban [Eliquis] 2.5 mg PO BID
Dapagliflozin [Farxiga] 10 mg PO DAILY
Diltiazem Extended Release [Cardizem Cd] 180 mg PO DAILY
Finasteride [Proscar] 5 mg PO DAILY
Furosemide [Lasix] 80 mg PO BID
Pantoprazole [Protonix] 20 mg PO DAILY
Tamsulosin [Flomax] 0.4 mg PO DAILY
mesalamine See Dose Instructions PO DAILY
Abnormal Lab Results
08/27/24
14:55
RBC 4.25 L 10^6/uL
(4.70-6.10)
MCV 96.0 H fL
(80.0-94.0)
MCH 32.7 H pg
(27.0-31.0)
Absolute Lymphs (auto) 0.6 L 10^3/uL
(1.2-3.4)
Absolute Monos (auto) 1.0 H 10^3/uL
(0.1-0.6)
Neutrophils % 76.8 H %
(42.2-75.2)
Lymphocytes % 7.1 L %
(20.5-51.1)
Monocytes % 12.4 H %
(1.7-9.3)
BUN 46 H mg/dl
(9-20)
Creatinine 1.6 H mg/dL
(0.7-1.3)
08/27/24 14:55
08/27/24 14:55
Vital Signs
Initial and Last Documented VS:
Initial Vital Signs
Temp Pulse Resp BP Pulse Ox
98.0 F 66 18 124/64 99
08/27/24 14:50 08/27/24 14:50 08/27/24 14:50 08/27/24 14:50 08/27/24 14:50
Last Documented Vital Signs
Temp Pulse Resp BP Pulse Ox
98.2 F 59 18 112/45 100
08/28/24 15:01 08/28/24 15:01 08/28/24 15:01 08/28/24 15:01 08/28/24 15:01
<Taylor Mcwilliams PA-C - Last Filed: 08/27/24 23:19>
Orders/Labs/Results
Orders:
Orders
08/27/24 14:55
Complete Blood Count/With Diff Urgent
Comprehensive Metabolic Panel Urgent
08/27/24 16:31
CR Leg Tibia/fibula Left 2 Vw Urgent
Comment:
Reason For Exam: wound/edema
US Periph Venous LOWER Ext LT Urgent
Comment:
Reason For Exam: edema, wound
08/27/24 17:46
Vancomycin [Vancocin] 1,500 mg 0.9% Sodium Chloride 500 ml [Nss] 500 ml IV NOW
08/27/24 21:41
Admit/Transfer Patient As Directed
Co-Sign Provider:
Level of Care: Inpatient admission
Assign to:: Medical/Surgical
Physician / Group: Alina
Diagnosis: LLE Cellulitis
Reason for Hospitalization: IV abx
Expected length of stay greater than two midnights?: Yes
ELOS- Estimated Length of Stay in days: 3
I certify the patient meets the requirements for IP care: Yes
PRN Pain Medication Management As Directed
May give lesser potent ordered pain med per pt: Yes
preference::
Protocol:: Medication orders for pain may be administered in a
manner that supports deferring to patient preference
when the pt is:
- Requesting an ordered lesser potent pain medication.
Least to most potent pain medications are defined
as: acetaminophen < NSAID < tramadol < opioids
(morphine, oxycodone, hydromorphone).
- Requesting a lesser dose of the same medication IF
ORDERED.
- Requesting a less intrusive route of administration
if both routes are prescribed by the provider (PO <
IV).
08/27/24 21:44
Code Status As Directed
Resuscitation Status: Full Code
08/27/24 22:00
Flush (0.9% Sodium Chloride) [Flush (Nss)] See Dose Instructions IV PER PROTOCOL
08/28/24 00:19
Atorvastatin [Lipitor] 10 mg PO HS
Spironolactone [Aldactone] 25 mg PO HS
VANCOMYCIN Pharmacy to Dose [VANCOCIN Pharmacy to Dose] 1 each Pharmacy To Prepare [Call Pharmacy To Prepare] 0 ml IV PER PROTOCOL
08/28/24 00:19
WOUND/OSTOMY CONSULT Routine
Reason for Consult: LLE Wound
Activity As Directed
Activity Level: Out of Bed-Early Mobility
Intake/ Output As Directed
Frequency: Per unit guidelines
Vital Signs As Directed
Frequency: Per unit guidelines
Weight As Directed
Frequency: Daily
08/28/24 02:00
Loratadine [Claritin] 20 mg PO HS
08/28/24 04:59
Basic Metabolic Panel IN AM
Complete Blood Count/No Diff IN AM
08/28/24 Breakfast
Sodium, 2 Gram
At Your Request: Full Participation
08/28/24 08:00
Apixaban [Eliquis] 2.5 mg PO BID
Dapagliflozin [Farxiga] 10 mg PO DAILY
Diltiazem Extended Release [Cardizem Cd] 180 mg PO DAILY
Finasteride [Proscar] 5 mg PO DAILY
Furosemide [Lasix] 80 mg PO BID
Pantoprazole [Protonix] 20 mg PO DAILY
Tamsulosin [Flomax] 0.4 mg PO DAILY
mesalamine See Dose Instructions PO DAILY
Abnormal Lab Results
08/27/24
14:55
RBC 4.25 L 10^6/uL
(4.70-6.10)
MCV 96.0 H fL
(80.0-94.0)
MCH 32.7 H pg
(27.0-31.0)
Absolute Lymphs (auto) 0.6 L 10^3/uL
(1.2-3.4)
Absolute Monos (auto) 1.0 H 10^3/uL
(0.1-0.6)
Neutrophils % 76.8 H %
(42.2-75.2)
Lymphocytes % 7.1 L %
(20.5-51.1)
Monocytes % 12.4 H %
(1.7-9.3)
BUN 46 H mg/dl
(9-20)
Creatinine 1.6 H mg/dL
(0.7-1.3)
08/27/24 14:55
08/27/24 14:55
Vital Signs
Initial and Last Documented VS:
Initial Vital Signs
Temp Pulse Resp BP Pulse Ox
98.0 F 66 18 124/64 99
08/27/24 14:50 08/27/24 14:50 08/27/24 14:50 08/27/24 14:50 08/27/24 14:50
Last Documented Vital Signs
Temp Pulse Resp BP Pulse Ox
98.2 F 59 18 112/45 100
08/28/24 15:01 08/28/24 15:01 08/28/24 15:01 08/28/24 15:01 08/28/24 15:01
<Carson Morrison PA-C - Last Filed: 08/28/24 18:02>
MDM/Problems Addressed
Differential Diagnosis Includes:
Cellulitis to the left lower extremity, DVT, peripheral vascular/peripheral arterial disease, less concern for necrotizing fasciitis or other advanced infectious etiology
MDM/Problems Addressed:
83-year-old male presenting to the ER for evaluation at the request of wound care center for evaluation of a reportedly worsening wound to the left lower extremity despite localized wound care of the last few days. Patient's exam does show
significant edema and dusky appearance which patient reports is mostly chronic. I do suspect there is a large component of peripheral vascular disease leading to patient's poor wound healing however there is surrounding erythema. Will initiate IV
antibiotics at the request of the wound care center. Plan for admission. X-ray and ultrasound ordered to further assess.
Chronic conditions affecting care: PVD
Acute Exacerbation and/or Progression of Chronic Illness: PVD
<Carson Morrison PA-C - Last Filed: 08/28/24 18:02>
*Pulse Oximetry
Patient hypoxic: no
Data Reviewed
Review of Other/Old Records Reveals: Records
Source: patient and physician
<Taylor Mcwilliams PA-C - Last Filed: 08/27/24 23:19>
*Radiology
Radiology exam reviewed: preliminary read by ED provider (X-ray reviewed by me-no acute abnormalities) and radiology read reviewed
*Critical Care Note
Total Time (30-74mins, 75-104mins- exclusive of procedures): Not Applicable
<Taylor Mcwilliams PA-C - Last Filed: 08/27/24 23:19>
Update Note
Update Note:
Update: Received patient in signout. Ultrasound of left lower extremity shows no evidence of DVT. X-ray reviewed by me shows no acute abnormalities. Will admit patient for IV antibiotics to treat cellulitis of wound of left lower extremity likely
secondary to peripheral vascular disease. This was discussed with patient who is agreeable with plan. Patient admitted to hospital service in stable condition. Patient received IV vancomycin in ED.
ED Attending Note
<Carson Morrison PA-C - Last Filed: 08/28/24 18:02>
-
Portions of this chart may have been created with voice recognition software.� Occasional wrong word or��sound alike� substitutions may have occurred due to the inherent limitations of voice recognition software.
Discharge Plan
Departure
Patient Disposition: Admit
Date of Disposition: 08/27/24
Time of Disposition: 20:35
Presentation/result/management discussed w/ accepting MD/DO: Hospitalist
Discharge Problem:
Cellulitis of left leg, Peripheral vascular disease
Interventions
Interventions:
*Risk Screen - Suicide Last Done: 08/28/24 09:28
*General Assessment Last Done: 08/27/24 18:00
*Neglect/Abuse Screening Last Done: 08/27/24 18:00
ED- Fall Risk Assessment Last Done: 08/27/24 18:00
*ED COVID-19 Vaccine History Last Done: 08/28/24 09:28
*Nursing Disposition Last Done: 08/28/24 08:57
ED-Skin Assessment Last Done: 08/27/24 19:21
Discharge Date and Time
Discharge Date/Time: 08/28/24 08:57
[2024-08-27 17:41] VITALS: BMI 23.1
[2024-08-27 17:43] VITALS: BP 115/49
[2024-08-27] MEDS: VANCOCIN 530 MG IV (18:04)
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
--- NOTE | 2024-08-27 21:20 | W.PN.UPDATE ---
Update Note
Progress Note Update
Patient seen in conjunction with [employer]. I agree with the final history and physical. I concur with assessment and plan.
Briefly, this an 83-year-old with a complex medical history including permanent atrial fibrillation on anticoagulation, oes-isldtud-kwxyiqrtw diabetes, congestive heart failure, CKD, hypertension, ulcerative colitis, asthma presents to the emergency
department with left lower leg swelling.
He had a trauma to the left lower extremity after hitting the side of a coffee table on Tuesday 1 week ago. He had an open wound that he stated was fairly deep but no drainage. He later followed up with wound care who recommended ED evaluation.
Patient reported chronic intermittent bilateral swelling but reports that there is more swelling in his left lower extremity now compared to baseline. He reports significant tenderness to palpation. He has also developed spreading erythema. He
has not had any fevers or chills. Denies any nausea or vomiting. Blood glucose has been well-controlled.
In the emergency department here he was afebrile, blood pressure was stable at 115/49 with a pulse of 60 1799% on room air. CBC was unremarkable. Electrolytes and BUN were stable and unchanged from prior. Ultrasound was negative for DVT. X-ray
shows stable or repeated chronic tib-fib fracture.
Clinical picture consistent with cellulitis secondary to open wound injury.
- admit to med/surg
- prior mrsa, dm II, UC, will continue vancomycin for now
- keep legs elevated
- pain control
- wound evaluation
- will continue chronic meds for diabetes, chf, rate control and anticoagulation
Code Status - Full Code
[2024-08-27 22:41] VITALS: BP 121/59
[2024-08-27 22:47] VITALS: BP 115/83
[2024-08-27 22:48] VITALS: BMI 23.1
[2024-08-27 23:42] VITALS: BP 115/76
[2024-08-28] VITALS (9 sets, daily range): BP systolic 112–141; BP diastolic 45–66; BMI 23.9
--- NOTE | 2024-08-28 00:42 | PTCARENOTE ---
this RN into room to introduce self, pt immediately expressed that his wound has been uncovered for 5 hours and his wound dr told him it has to be cover at all times. this RN offered to dress the pts wound, this RN expressed that no specific wound
care orders are in and wound care will see him during the day since they are not here overnight. pt was upset about this information and asked if this RN knew what to put on his wound. this RN expressed to pt several times that in order for specific
wound care orders to be in, wound care needs to assess pt and write them. as of right now, there are no orders as wound care is not here overnight. pt asked this RN to speak up because he cant hear well, then pt proceeds to yell at this RN for
yelling at him. pt began yelling at this RN and stated 'you will wrap this wound properly!'. this RN stated that the wound could be dressed and covered for the meantime until wound care sees him. pt began pointing at RN to figure out what the proper
way was. pt then asked to speak with head RN, Dian kiln charger at bedside to speak with pt. once kiln charger left, the pt stated 'well you won this brown, shes on your side.' this RN told pt that he asked for the head RN, so the head RN was provided,
that there was no brown to be won or lost. pt let this RN dress and cover the wound.
[ End ]
[2024-08-28] MEDS: LIPITOR 10 MG PO ×2 (01:25→21:25)
[2024-08-28] MEDS: ALDACTONE 25 MG PO ×2 (01:25→21:24)
[2024-08-28] MEDS: CLARITIN 20 MG PO ×2 (01:39→21:23)
[2024-08-28] MEDS: TYLENOL 650 MG PO ×3 (05:16→21:23)
[2024-08-28 05:17] LABS: Hematocrit 36.5 % (39.0-52.0); Hemoglobin 12.8 g/dL (13.0-18.0); Mean Corp Hgb Conc. 35.1 g/dL (33.0-37.0); Mean Corpuscular Hgb 32.7 pg (27.0-31.0); Mean Corpuscular Volume 93.1 fL (80.0-94.0); Mean Platelet Volume 10.1 fL (7.4-10.4); Platelet Count 151 10^3/uL (130-400); Red Blood Cell Count 3.92 10^6/uL (4.70-6.10); Red Cell Dist. Width 13.9 % (11.5-14.5); White Blood Cell Count 7.3 10^3/uL (4.8-10.8)
[2024-08-28 05:42] LABS: Blood Urea Nitrogen 41 mg/dl (9-20); Calcium 8.7 mg/dl (8.4-10.2); Carbon Dioxide 22 mmol/L (22-30); Chloride 107 mmol/L (98-107); Estimated Creatinine Clearance 43 ml/min; Glucose 101 mg/dl (70-99); Potassium 3.9 mmol/L (3.5-5.1); Sodium 137 mmol/L (135-145); eGFR 53.84
--- NOTE | 2024-08-28 08:49 | PHA.VAN.IN ---
Assessment
- Assessment
Renal Function: Appears similar to baseline
Plan
- Plan
Initial / Loading Dose: 1500mg - 08/27 18:04
Maintenance Regimen: dosing by level - give 1000mg x1 today
Monitoring: random 08/29 06
Vanc 1000mg Q24H predicts AUC 498, peak 32, trough 12.6
Predicted half-life 17.3H
Will give single dose today and follow level prior to scheduling dosing
Pharmacokinetics Vancomycin I
- -
Patient Age: 83
Patient Sex: Male
Vancomycin Day #: 1
Indication: Skin And Soft Tissue
Requesting Provider: Mariusz Wei
Pertinent Antimicrobial Allergies:
no pertinent antibiotic allergies
Height / Weight:
Height 5 ft 10 in
Actual Weight 73 kg
Pertinent Past Medical History: CKD
- Vital Signs / Lab Results
Temp Pulse Resp BP Pulse Ox
98.8 F 66 18 122/66 97
08/28/24 04:55 08/28/24 04:55 08/28/24 04:55 08/28/24 04:55 08/28/24 04:55
Lab Results - Hematology
08/27/24 08/28/24
14:55 04:59
WBC 8.1 7.3
Lab Results - Chemistry
08/27/24 08/28/24
14:55 04:59
BUN 46 H 41 H
Creatinine 1.6 H 1.3
Estimated Creat Clear 43
Albumin 4.3
[2024-08-28] MEDS: CARDIZEM CD 180 MG PO (09:18)
[2024-08-28] MEDS: FARXIGA 10 MG PO (09:19)
[2024-08-28] MEDS: FLOMAX 0.4 MG PO (09:19)
[2024-08-28] MEDS: PROTONIX 20 MG PO (09:19)
[2024-08-28] MEDS: LASIX 80 MG PO ×2 (09:19→21:24)
[2024-08-28] MEDS: ELIQUIS 2.5 MG PO ×2 (09:19→21:24)
[2024-08-28] MEDS: PROSCAR 5 MG PO (09:19)
--- NOTE | 2024-08-28 11:07 | WOUNDNOTE ---
L LATERAL LOWER LEG
--- NOTE | 2024-08-28 11:10 | WOUNDNOTE ---
WON RN note: Patient admitted with cellulitis of L leg, PVD.
See H&P for complete history. Lives with at home.
PMH: Skin cancer, ex smoker, A Fib, CHF, B/L Knee replacements, R hip replacement, brain bleed.
Wound Location and type/assessment: Patient admitted with: Full thickness ulcer to L lateral leg, accidentally scraped on edge of coffee table when playing with his dog. Had been going to [facility] who recommended patient go to ER for IV abx. Reviewed
wound care with nurse Abernathy from wound center. + palpable pedal pulses, +1 edema in L leg, heels intact. Ultrasound negative for DVT and x ray negative for new fractures. Sacrum intact.
Appetite: Good.
Pressure redistribution devices in place: Accumax, is ad ko.
Plan: Will order Santyl, today applied adaptic, abd pad and kayley with kamala wrap knee high. Pillow under calves.
Will confirm orders with hospitalist and updated nurse Temple. Updated care plan and will follow as needed.
Note to case management of equipment requested for discharge: None.
Recommend follow up at wound care center upon discharge.
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
[2024-08-28] MEDS: VANCOCIN 200 IV (13:03)
[2024-08-28] MEDS: ANCEF 5 IV ×2 (13:03→21:23)
--- NOTE | 2024-08-28 14:34 | CM ---
Reviewed the chart notes and spoke with the patient at the bedside. Patient admitted for LLE cellulitis. The patient resides with his spouse in a one story home with one step to enter. The patient has a cane, shower chair rolling walker, and
shower rails. The patient has been to [facility] in the past and had VN in past, but could not recall the name of the agency. The patient confirmed his pharmacy of choice is the [facility]. continues to be available to
patient/family and is monitoring medical plan for needs at discharge.
Plan: Discharge plans will depend on the patient's progress.
--- NOTE | 2024-08-28 16:13 | PTOTSP ---
The patient ambulated in the hallway independently without a device. Encouraged ambulation throughout the day with periods of elevation to help reduce swelling in LE's to promote wound healing. Recommend resuming Outpatient PT when discharged. No
acute PT needs at this time, will sign off.
[2024-08-28] MEDS: NON-FORMULARY ITEM 1.5 GRAMS PO (16:35)
--- NOTE | 2024-08-29 04:24 | DOWNTIME ---
There was a [employer] Director Downtime on 08/29/2024 from 0100 to 08/29/2023 at 0235 . Downtime documentation of patient's care, including medication administrations, has been reconciled in the electronic record per guidelines. Refer to the
patient's paper chart under the miscellaneous tab to see printed paper medication records and downtime forms.
[2024-08-29] MEDS: ANCEF 5 IV ×3 (04:50→20:17)
[2024-08-29 05:20] VITALS: BMI 24.3
[2024-08-29 06:35] LABS: Hematocrit 35.3 % (39.0-52.0); Hemoglobin 12.5 g/dL (13.0-18.0); Mean Corp Hgb Conc. 35.4 g/dL (33.0-37.0); Mean Corpuscular Hgb 32.7 pg (27.0-31.0); Mean Corpuscular Volume 92.4 fL (80.0-94.0); Mean Platelet Volume 9.1 fL (7.4-10.4); Platelet Count 137 10^3/uL (130-400); Red Blood Cell Count 3.82 10^6/uL (4.70-6.10); Red Cell Dist. Width 13.8 % (11.5-14.5); White Blood Cell Count 5.6 10^3/uL (4.8-10.8)
[2024-08-29 07:04] LABS: Blood Urea Nitrogen 37 mg/dl (9-20); Calcium 8.8 mg/dl (8.4-10.2); Carbon Dioxide 23 mmol/L (22-30); Chloride 103 mmol/L (98-107); Estimated Creatinine Clearance 43 ml/min; Glucose 103 mg/dl (70-99); Potassium 3.7 mmol/L (3.5-5.1); Sodium 136 mmol/L (135-145); eGFR 53.84
[2024-08-29 07:06] LABS: Vancomycin Random 15.1 ug/ml
[2024-08-29 07:37] VITALS: BP 113/63
[2024-08-29] MEDS: FLOMAX 0.4 MG PO (08:19)
[2024-08-29] MEDS: PROSCAR 5 MG PO (08:20)
[2024-08-29] MEDS: PROTONIX 20 MG PO (08:20)
[2024-08-29] MEDS: LASIX 80 MG PO ×2 (08:20→20:17)
[2024-08-29] MEDS: ELIQUIS 2.5 MG PO ×2 (08:20→20:17)
[2024-08-29] MEDS: CARDIZEM CD PO (08:22)
[2024-08-29] MEDS: FARXIGA 10 MG PO (08:22)
[2024-08-29] MEDS: NON-FORMULARY ITEM PO (08:24)
[2024-08-29] MEDS: SANTYL OINTMENT 1 APPLIC TOPICAL (08:25)
--- NOTE | 2024-08-29 09:18 | CM ---
Reviewed the chart notes. PT notes indicate patient walked 300' without assistance or device. CM continues to be available to patient/family and is monitoring medical plan for needs at discharge.
Plan: Discharge plans will depend on the patient's progress.
--- NOTE | 2024-08-29 09:44 | PN.CDI ---
CDI
- -
CDI:
Physician Documentation Request
Admit Date: 08/27/24 22:48
Dear Doctor Alyson,
Please review the following and provide your response in the progress notes.
Clinical Indicators:
ED, 08/27
#...suspect there is a large component of peripheral vascular disease
#...leading to patient's poor wound healing however there is surrounding erythema.
#...Chronic conditions affecting care: PVD
#...Acute Exacerbation and/or Progression of Chronic Illness: PVD
#Discharge Problem:
#...Cellulitis of left leg, Peripheral vascular disease
PN, 08/27
#...complex medical history...[id number] diabetes,...ulcerative colitis,
#...Blood glucose has been well-controlled.
#Clinical picture consistent with cellulitis secondary to open wound injury.
#...- prior mrsa, dm II, UC, will continue vancomycin for now
#...- will continue chronic meds for diabetes, chf, rate control and anticoagulation
PN, 08/28
# Left Lower Extremity Cellulitis secondary to LLE Wound
# Ulcerative Colitis
#...Continue mesalamine
Based on the above and your clinical assessment, please clarify the etiology of the LLE cellulitis:
Multifactorial, due to PVD, cellulitis, diabetes, immunosuppression(due to meds)
Left lower Extremity Cellulitis, Only
Other(Please Specify)
Use of terms such as suspected, likely, concern for, or probable (associated with a specific diagnosis that is being evaluated, monitored, or treated as if it exists) are acceptable and can be coded in the inpatient setting, when documented at the
time of discharge.
Thank you,
Sabrina Goyal RN BSN CCDS
CDI Specialist
please contact via tiger text
Please use your independent medical judgment in providing your response.
[2024-08-29 09:48] VITALS: BP 127/86
[2024-08-29] MEDS: NON-FORMULARY ITEM 1.5 GRAMS PO (10:06)
--- NOTE | 2024-08-29 10:06 | PHA.VAN.FU ---
Vancomycin Assessment / Plan
- Assessment
Renal Function: Stable
WBC's are: WNL
In the past 24 hrs, patient has been: Afebrile
Concomitant Antimicrobials: cefazolin
- Assessment - Therapeutic Drug Monitoring
Random Level: 15.1
Peak level was drawn: Appropriately
- Dosing Plan
Adjust Regimen to: vancomycin 1000 mg q24h
New Regimen Predicts: AUC (473), Peak (30.1), Trough (12)
- Monitoring Plan
No level(s) ordered at this time: consider levels in the next few days
- Follow Up
Pharmacy will continue to follow.
Vancomycin Follow UP
- -
Patient Age: 83
Patient Sex: Male
Vancomycin Day #: 2
Indication: Skin And Soft Tissue
Requesting Provider: Mariusz Wei
Pertinent Antimicrobial Allergies:
no pertinent antibiotic allergies
Height / Weight:
Height 5 ft 10 in
Actual Weight 76.839 kg
Pertinent Past Medical History: CKD
- Vital Signs / Lab Results
Temp Pulse Resp BP Pulse Ox
97.9 F 63 18 113/63 99
08/29/24 07:37 08/29/24 08:22 08/29/24 07:37 08/29/24 08:22 08/29/24 07:37
Lab Results - Hematology
08/27/24 08/28/24 08/29/24
14:55 04:59 06:23
WBC 8.1 7.3 5.6
Lab Results - Chemistry
08/27/24 08/28/24 08/29/24
14:55 04:59 06:23
BUN 46 H 41 H 37 H
Creatinine 1.6 H 1.3 1.3
Estimated Creat Clear 43 43
Albumin 4.3
Therapeutic Drug Monitoring
Random Vancomycin 15.1 ug/ml 08/29/24 06:23
[2024-08-29] MEDS: VANCOCIN 200 IV (10:12)
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
[2024-08-29] MEDS: NON-FORMULARY ITEM 300 MG SC (16:05)
[2024-08-29] MEDS: OCUVITE SOFTGEL 1 CAP PO (16:05)
[2024-08-29 16:06] VITALS: BP 107/57
[2024-08-29] MEDS: REFRESH EYE DROPS (PF) 1 DROPS BOTH EYES (20:17)
[2024-08-29] MEDS: TYLENOL 1000 MG PO (22:35)
[2024-08-29] MEDS: ALDACTONE 25 MG PO (22:36)
[2024-08-29] MEDS: LIPITOR 10 MG PO (22:43)
[2024-08-29] MEDS: CLARITIN 20 MG PO (22:43)
[2024-08-29 23:23] VITALS: BP 122/62
[2024-08-30] MEDS: ANCEF 5 IV ×2 (03:59→11:54)
[2024-08-30 06:00] VITALS: BMI 23.5
[2024-08-30 06:24] LABS: Hematocrit 38.2 % (39.0-52.0); Hemoglobin 13.1 g/dL (13.0-18.0); Mean Corp Hgb Conc. 34.3 g/dL (33.0-37.0); Mean Corpuscular Hgb 32.7 pg (27.0-31.0); Mean Corpuscular Volume 95.3 fL (80.0-94.0); Mean Platelet Volume 9.6 fL (7.4-10.4); Platelet Count 148 10^3/uL (130-400); Red Blood Cell Count 4.01 10^6/uL (4.70-6.10); Red Cell Dist. Width 13.7 % (11.5-14.5); White Blood Cell Count 4.9 10^3/uL (4.8-10.8)
[2024-08-30 06:48] LABS: Blood Urea Nitrogen 38 mg/dl (9-20); Calcium 8.6 mg/dl (8.4-10.2); Carbon Dioxide 29 mmol/L (22-30); Chloride 101 mmol/L (98-107); Estimated Creatinine Clearance 40 ml/min; Glucose 97 mg/dl (70-99); Sodium 136 mmol/L (135-145); eGFR 49.25
[2024-08-30 08:09] VITALS: BP 131/68
[2024-08-30] MEDS: SANTYL OINTMENT 1 APPLIC TOPICAL (08:41)
[2024-08-30] MEDS: CARDIZEM CD 180 MG PO (08:42)
[2024-08-30] MEDS: OCUVITE SOFTGEL 1 CAP PO (08:42)
[2024-08-30] MEDS: PROSCAR 5 MG PO (08:43)
[2024-08-30] MEDS: ELIQUIS 2.5 MG PO (08:43)
[2024-08-30] MEDS: LASIX 80 MG PO (08:43)
[2024-08-30] MEDS: FLOMAX 0.4 MG PO (08:43)
[2024-08-30] MEDS: FARXIGA 10 MG PO (08:43)
[2024-08-30] MEDS: PROTONIX 20 MG PO (08:43)
[2024-08-30] MEDS: REFRESH EYE DROPS (PF) 1 DROPS BOTH EYES (08:43)
[2024-08-30] MEDS: NON-FORMULARY ITEM 1.5 GRAMS PO (08:44)
[2024-08-30] MEDS: VANCOCIN 200 IV (08:47)
[2024-08-30] MEDS: TYLENOL 650 MG PO (08:53)
--- NOTE | 2024-08-30 09:15 | PHA.VAN.FU ---
Vancomycin Assessment / Plan
- Assessment
Renal Function: Stable
WBC's are: WNL
In the past 24 hrs, patient has been: Afebrile
Concomitant Antimicrobials: cefazolin
- Dosing Plan
Adjust Regimen to: dosing by level
Level higher than anticipated yesterday after 2 doses - patient may have additional accumulation since not yet at steady state
Will switch back to dosing by level so can more closely follow levels
- Monitoring Plan
Random Level: 08/31 599
- Follow Up
Pharmacy will continue to follow.
Vancomycin Follow UP
- -
Patient Age: 83
Patient Sex: Male
Vancomycin Day #: 3
Indication: Skin And Soft Tissue
Requesting Provider: Mariusz Wei
Pertinent Antimicrobial Allergies:
no pertinent antibiotic allergies
Height / Weight:
Height 5 ft 10 in
Actual Weight 74.298 kg
Pertinent Past Medical History: CKD
- Vital Signs / Lab Results
Temp Pulse Resp BP Pulse Ox
97.6 F 62 18 131/68 100
08/30/24 08:09 08/30/24 08:43 08/30/24 08:09 08/30/24 08:43 08/30/24 08:09
Lab Results - Hematology
08/27/24 08/28/24 08/29/24
14:55 04:59 06:23
WBC 8.1 7.3 5.6
08/30/24
05:42
WBC 4.9
Lab Results - Chemistry
08/27/24 08/28/24 08/29/24
14:55 04:59 06:23
BUN 46 H 41 H 37 H
Creatinine 1.6 H 1.3 1.3
Estimated Creat Clear 43 43
Albumin 4.3
08/30/24
05:42
BUN 38 H
Creatinine 1.4 H
Estimated Creat Clear 40
Albumin
Microbiology Results
08/28/24 10:41 MRSA Screen - Final
Nose Staph aureus MRSA
Therapeutic Drug Monitoring
Random Vancomycin 15.1 ug/ml 08/29/24 06:23
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
--- NOTE | 2024-08-30 11:48 | CM ---
Patient seen beside.
Patient for dc home today on oral anbx.
PT/OT recommending outpatient therapy, script requested via TT.
IMM completed.
Patient has transportation home.
Plan: home with resumption of outpatient therapy
[2024-08-30 11:50] VITALS: BP 97/67
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
== END 2024-08-30 14:37 | disposition home or self-care (01) | DRG 603 ==
LOC: 2 NORTH 22:48
PROVIDERS: Emergency Medicine; Physician Assistant Medical; ADMITTING PHYSICIAN Internal Medicine; ATTENDING PHYSICIAN Internal Medicine; EMERGENCY PHYSICIAN Emergency Medicine; FAMILY PHYSICIAN Emergency Medicine
DX: L03.116 Cellulitis of left lower limb (principal); I48.21 Permanent atrial fibrillation; I13.0 Hypertensive heart and chronic kidney disease with heart failure and stage 1 through stage 4 chronic kidney disease, or unspecified chronic kidney disease; I50.32 Chronic diastolic (congestive) heart failure; K51.90 Ulcerative colitis, unspecified, without complications; N18.30 Chronic kidney disease, stage 3 unspecified; E11.22 Type 2 diabetes mellitus with diabetic chronic kidney disease; E78.5 Hyperlipidemia, unspecified; N40.0 Benign prostatic hyperplasia without lower urinary tract symptoms; M19.90 Unspecified osteoarthritis, unspecified site; L30.9 Dermatitis, unspecified; Z96.653 Presence of artificial knee joint, bilateral; Z87.891 Personal history of nicotine dependence; Z79.01 Long term (current) use of anticoagulants; Z79.899 Other long term (current) drug therapy; Z86.73 Personal history of transient ischemic attack (TIA), and cerebral infarction without residual deficits; Z85.828 Personal history of other malignant neoplasm of skin; I73.9 Peripheral vascular disease, unspecified; E11.51 Type 2 diabetes mellitus with diabetic peripheral angiopathy without gangrene; J45.909 Unspecified asthma, uncomplicated; Z96.641 Presence of right artificial hip joint
CPT/HCPCS: 11042; 11045; 73590; 80048; 80053; 80202; 85025; 85027; 87070; 87147; 93971; 96365; 97161; 97165; 99213; 99214; 99285

== ENCOUNTER → 2024-08-31 08:33 | Outpatient (REF) | payer MEDICARE, OTHER, SELFPAY | LOC: WOUND 08:33 | PROVIDERS: ATTENDING PHYSICIAN Surgery | DX: L97.223 Non-pressure chronic ulcer of left calf with necrosis of muscle (principal); L03.116 Cellulitis of left lower limb; I87.2 Venous insufficiency (chronic) (peripheral); R60.9 Edema, unspecified; I48.21 Permanent atrial fibrillation; N18.31 Chronic kidney disease, stage 3a | CPT/HCPCS: 11042; 11045 ==

== ENCOUNTER → 2024-09-11 07:46 | Outpatient (REF) | payer MEDICARE, OTHER, SELFPAY | LOC: RAD 07:46 | PROVIDERS: ATTENDING PHYSICIAN Surgery; FAMILY PHYSICIAN Emergency Medicine | DX: L97.222 Non-pressure chronic ulcer of left calf with fat layer exposed (principal); I87.2 Venous insufficiency (chronic) (peripheral) | CPT/HCPCS: 93971 ==

== ENCOUNTER → 2024-09-14 08:31 | Outpatient (REF) | payer MEDICARE, OTHER, SELFPAY | LOC: WOUND 08:31 | PROVIDERS: ATTENDING PHYSICIAN Surgery; FAMILY PHYSICIAN Emergency Medicine | DX: L97.223 Non-pressure chronic ulcer of left calf with necrosis of muscle (principal); L03.116 Cellulitis of left lower limb; I87.2 Venous insufficiency (chronic) (peripheral); R60.9 Edema, unspecified; I48.21 Permanent atrial fibrillation; N18.31 Chronic kidney disease, stage 3a | CPT/HCPCS: 11042 ==

== ENCOUNTER → 2024-09-18 17:12 | Outpatient (REF) | payer MEDICARE, OTHER, SELFPAY | LOC: MRI 17:12 | PROVIDERS: ATTENDING PHYSICIAN Emergency Medicine | DX: K86.2 Cyst of pancreas (principal); R68.81 Early satiety | CPT/HCPCS: 74183; A9575 ==

== ENCOUNTER → 2024-09-21 09:03 | Outpatient (REF) | payer MEDICARE, OTHER, SELFPAY | LOC: WOUND 09:03 | PROVIDERS: ATTENDING PHYSICIAN Surgery; FAMILY PHYSICIAN Emergency Medicine | DX: L97.223 Non-pressure chronic ulcer of left calf with necrosis of muscle (principal); L03.116 Cellulitis of left lower limb; I87.2 Venous insufficiency (chronic) (peripheral); R60.9 Edema, unspecified; I48.21 Permanent atrial fibrillation; N18.31 Chronic kidney disease, stage 3a; Z79.01 Long term (current) use of anticoagulants | CPT/HCPCS: 11042 ==

== ENCOUNTER → 2024-09-27 09:19 | Outpatient (REF) | payer MEDICARE, OTHER, SELFPAY ==
[2024-09-27 12:24] LABS: % Basophils 0.8 % (0-2); % Eosinophils 2.3 % (0-6); % Immature Granulocytes 0.4 % (0-0.5); % Lymphocytes 7.6 % (20.5-51.1); % Monocytes 10.3 % (1.7-9.3); % Neutrophils 78.6 % (42.2-75.2); Absolute Basophils 0.1 10^3/uL (0-0.2); Absolute Eosinophils 0.2 10^3/uL (0-0.7); Absolute Lymphocytes 0.6 10^3/uL (1.2-3.4); Absolute Monocytes 0.8 10^3/uL (0.1-0.6); Absolute Neutrophils 6.3 10^3/uL (1.4-6.5); Hematocrit 42.8 % (39.0-52.0); Hemoglobin 14.3 g/dL (13.0-18.0); Mean Corp Hgb Conc. 33.4 g/dL (33.0-37.0); Mean Corpuscular Volume 95.7 fL (80.0-94.0); Mean Platelet Volume 10.6 fL (7.4-10.4); Nucleated Red Blood Cells % 0 % (-); Platelet Count 159 10^3/uL (130-400); Red Blood Cell Count 4.47 10^6/uL (4.70-6.10); Red Cell Dist. Width 13.5 % (11.5-14.5); White Blood Cell Count 7.9 10^3/uL (4.8-10.8)
[2024-09-27 14:30] LABS: Glycohemoglobin (HgbA1c) 5.2 % (4.0-5.6)
== END ==
LOC: HWLAB 09:19
PROVIDERS: ATTENDING PHYSICIAN Emergency Medicine; REFERRING PHYSICIAN Internal Medicine Cardiovascular Disease
DX: R81 Glycosuria (principal); D69.6 Thrombocytopenia, unspecified; E11.9 Type 2 diabetes mellitus without complications
CPT/HCPCS: 36415; 83036; 85025

== ENCOUNTER → 2024-09-28 13:48 | Outpatient (REF) | payer MEDICARE, OTHER, SELFPAY | LOC: WOUND 13:48 | PROVIDERS: ATTENDING PHYSICIAN Surgery; FAMILY PHYSICIAN Emergency Medicine | DX: R05.9 Cough, unspecified (principal); L97.223 Non-pressure chronic ulcer of left calf with necrosis of muscle; L03.116 Cellulitis of left lower limb; I87.2 Venous insufficiency (chronic) (peripheral); R60.9 Edema, unspecified; I48.21 Permanent atrial fibrillation; N18.31 Chronic kidney disease, stage 3a; Z79.01 Long term (current) use of anticoagulants | CPT/HCPCS: 97597 ==

== ENCOUNTER 2024-09-29 13:17 | Emergency (ER) | payer MEDICARE, OTHER, SELFPAY ==
[2024-09-29 13:21] VITALS: BP 137/63
[2024-09-29 13:36] VITALS: BMI 23.9
--- NOTE | 2024-09-29 13:48 | ED.GENMED ---
History of Present Illness
General
Chief Complaint: Fall
Source: patient
Exam Limitations: none
Time Seen by Provider: 09/29/24 13:34
Nursing documentation reviewed up to this point in time: agreed with
History of Present Illness
History of Present Illness:
84-year-old male on [place] presents to the ER for evaluation of fall. Patient was in his garage cleaning his car when he tripped and fell. He was able to open the door from the garage and let his know he fell. He denies loss of
consciousness. Does have a headache. Does complain of soreness to the right shoulder and left knee. He denies any neck pain, nausea and vomiting.
Past History
Past History
ED Past Medical History: Arrthythmia (afib), Asthma, Cancer (Skin cancer), CHF, Valvular disease and Other (BPH, Brain bleed, Colitis, Concussion)
ED Past Surgical History: Orthopedic (Left and right knee replacement, right hip replacement. Right shoulder surgery) and Other (hernia sx, cataracts, Left retina detachment. )
Social History
Tobacco: Former smoker
Alcohol: Occasional
Drug: None
Personal:
Living: with family
Employment: Retired
Family History
Family History: Other (n/c)
Review of Systems
Review of Systems
Allergies reviewed?: Yes
Other source history: family
All Other Systems: ROS reviewed and negative except as documented in HPI and ROS
Constitutional: Reports no symptoms
Respiratory: Reports no symptoms
Cardiac: Reports no symptoms
ABD/GI: Reports no symptoms
Musculoskeletal: Reports other (right shoulder ; left knee pain ); Denies neck pain or back pain
Skin: Reports no symptoms
Neurological: Reports no symptoms
Psychiatric: Reports no symptoms
Phy Exam
General Physical Exam
General Presentation: no apparent distress
General age: appears stated age
General Skin: warm and dry
General Habitus: normal
General Mental: alert
General Hydration: appears well hydrated
Neurological Exam
Neurological Exam: alert and oriented x3
Musculoskeletal Exam
Musculoskeletal Exam: other (Patient with abrasion to right forehead and 2 cm laceration to right temporal area. Abrasion to bilateral knees and right wrist. Strong pulses bilateral upper and lower extremities pain with right shoulder abduction
mildly sore left anterior knee)
Skin Exam
Skin Exam: normal color and warm/dry
Psychiatric Exam
Psychiatric Exam: normal mood/affect
Course
Orders/Labs/Results
Orders:
Orders
09/29/24 13:45
CT Head W/o Iv Contrast Urgent
Comment:
Reason For Exam: tauma
09/29/24 13:47
CT Cervical Spine W/o Iv Contr Urgent
Comment:
Reason For Exam: trauma
Shoulder, Right, Trauma [CR Shoulder, Trauma - Right] Urgent
Comment:
Reason For Exam: trauma
09/29/24 13:48
Knee, Left 4 or More Views [CR Knee - Left 4 Or More View*] Urgent
Comment:
Reason For Exam: trauma
09/29/24 15:12
Tetanus/Diphth/Acelpertussis [Adacel] 0.5 ml IM .ONCE ONE
Vital Signs
Initial and Last Documented VS:
Initial Vital Signs
Temp Pulse Resp BP Pulse Ox
97.6 F 74 18 137/63 98
09/29/24 13:21 09/29/24 13:21 09/29/24 13:21 09/29/24 13:21 09/29/24 13:21
Last Documented Vital Signs
Temp Pulse Resp BP Pulse Ox
97.6 F 74 18 137/63 98
09/29/24 13:21 09/29/24 13:21 09/29/24 13:21 09/29/24 13:21 09/29/24 13:21
Procedures
Laceration Closure
Right Temporal:
Status of Wound: clean
Size of Wound in cm: 2
Description of Wound Edges: sharp
Preparation: cleaned with saline
Revision/Debridement: routine- no revision
Type of Closure: Dermabond-skin glue
MDM/Problems Addressed
MDM/Problems Addressed:
Patient is an 84 yr old male was cleaning his car and tripped hitting his head. He also hit his right shoulder and left knee. He has skin tears and abrasions. He is on Eliquis. He does minimal headache however is neurologically intact and
follows all commands. He denies any loss of consciousness. No bony cervical spine tenderness. Patient has mild soreness to right anterior shoulder and mild discomfort with abduction mildly sore to left knee skin tears as documented. I was able
to glue small laceration to right temporal area. Small amounts of Gelfoam was applied to abrasion that continued to bleed to right forehead.
Patient has no other complaints. CT head and cervical spine negative no acute fractures on the x-ray shoulder x-ray will plan for discharge home with outpatient follow-up. Patient does see Dr. Bautista at [facility] for orthopedics will follow-up
with that group.
*Critical Care Note
Total Time (30-74mins, 75-104mins- exclusive of procedures): Not Applicable
ED Attending Note
-
Portions of this chart may have been created with voice recognition software.� Occasional wrong word or��sound alike� substitutions may have occurred due to the inherent limitations of voice recognition software.
Discharge Plan
Departure
Patient Disposition: Home (Routine Discharge)
Date of Disposition: 09/29/24
Time of Disposition: 15:54
Patient with high blood pressure during this ER visit?: No
Condition: Fair
Covid-19: Not Applicable
Discharge Problem:
Fall, Abrasion, Contusion
Instructions: Wound Care (DC), Head Injury in Adults (DC), Contusion (DC), Skin Abrasions (DC), BLOOD PRESSURE
Prescriptions:
No Action
fluticasone propionate 50 mcg/actuation [place],Suspension
1 spray INTRANASAL DAILYPRN PRN (Reason: allergies) Qty: 0
loratadine 10 MG tablet
20 mg PO HS
dutasteride 0.5 MG capsule
0.5 mg PO DAILY
spironolactone 25 mg tablet
25 mg PO HS
tamsulosin 0.4 mg capsule
0.4 mg PO DAILY
dapagliflozin propanediol [Farxiga] 10 mg tablet
10 mg PO DAILY
diltiazem HCl 180 mg Capsule,Extended Release 24 Hr
180 mg PO DAILY
halobetasol propionate 0.05 % cream
1 applic TOPICAL DAILYPRN PRN (Reason: skin issues)
cholecalciferol (vitamin D3) 25 mcg (1,000 unit) Tablet
25 mcg PO HS
mesalamine 0.375 gram capsule,extended release 24hr
1.5 g PO DAILY
PreserVision AREDS 2,148 mcg-113 mg-45 mg-17.4mg Tablet
1 tab PO DAILY
furosemide 80 mg tablet
80 mg PO BID
fexofenadine 180 mg Tablet
360 mg PO DAILY Qty: 0
Eliquis 2.5 mg Tablet
2.5 mg PO BID Qty: 60 0RF
atorvastatin 10 mg Tablet
10 mg PO HS
Dupixent Pen 300 mg/2 mL Pen Injector
300 mg SC Q2W
acetaminophen 650 mg Tablet Extended Release
1,300 mg PO [id number] PRN (Reason: mild pain)
pantoprazole 20 mg Tablet,Delayed Release (Dr/Ec)
20 mg PO DAILY
cyanocobalamin (vitamin B-12) 1,000 mcg Tablet, Sublingual
1,000 mcg SUBLINGUAL NOON
Systane (PF) 0.4-0.3 % Dropperette
1 drp BOTH EYES BID
doxycycline hyclate 100 mg capsule
100 mg PO BID 12 Days Qty: 24 0RF
cephalexin 500 mg capsule
500 mg PO Q6H 12 Days Qty: 48 0RF
Referrals:
Alicia Frost MD [Family Provider] -
WOUND CARE,CENTER [[facility]] -
Activity Restrictions/Additional Instructions:
As discussed you have a small amount of glue to right temporal region of your head.
Keep dry for 24 hours after 24 hrs you m ay lightly wet wound however do not apply antibiotic ointment or lotions to the area.
You have a small piece of Gelfoam to forehead keep dry.
Follow-up with family doctor/wound center in the next several days for wound checks. You have abrasions to shoulder and knees and wrist.
Follow-up with your orthopedic doctor the next several days for reevaluation of shoulder pain. You may ice affected area for the next 24 hours 20 minutes at a time several times a day. You may take Tylenol for pain. Return if any worsening of
symptoms.
Interventions
Interventions:
*Risk Screen - Suicide Last Done: 09/29/24 13:21
*General Assessment Last Done: 09/29/24 13:21
*Neglect/Abuse Screening Last Done: 09/29/24 13:21
*ED- Fall Risk Assessment Last Done: 09/29/24 16:15
*ED COVID-19 Vaccine History Last Done: 09/29/24 13:36
*Nursing Disposition Last Done: 09/29/24 16:15
ED-Musculoskeletal Assessment Last Done: 09/29/24 13:36
ED- Neurological Assessment Last Done: 09/29/24 13:36
ED-Skin Assessment Last Done: 09/29/24 13:36
Discharge Date and Time
Discharge Date/Time: 09/29/24 16:20
Print Language: AMHARIC
[2024-09-29] MEDS: ADACEL 0.5 ML IM (15:27)
== END 2024-09-29 16:20 | disposition home or self-care (01) ==
LOC: EMR 13:17
PROVIDERS: EMERGENCY PHYSICIAN Emergency Medicine; FAMILY PHYSICIAN Emergency Medicine
DX: T14.8XXA Other injury of unspecified body region, initial encounter (principal); S01.81XA Laceration without foreign body of other part of head, initial encounter; S81.012A Laceration without foreign body, left knee, initial encounter; S00.81XA Abrasion of other part of head, initial encounter; S80.212A Abrasion, left knee, initial encounter; S80.211A Abrasion, right knee, initial encounter; S60.811A Abrasion of right wrist, initial encounter; S40.211A Abrasion of right shoulder, initial encounter; R51.9 Headache, unspecified; M25.511 Pain in right shoulder; W01.0XXA Fall on same level from slipping, tripping and stumbling without subsequent striking against object, initial encounter; Y93.89 Activity, other specified; Y92.008 Other place in unspecified non-institutional (private) residence as the place of occurrence of the external cause; Z23 Encounter for immunization; I48.91 Unspecified atrial fibrillation; J45.909 Unspecified asthma, uncomplicated; I50.9 Heart failure, unspecified; I38 Endocarditis, valve unspecified; N40.0 Benign prostatic hyperplasia without lower urinary tract symptoms; K52.9 Noninfective gastroenteritis and colitis, unspecified; M19.90 Unspecified osteoarthritis, unspecified site; Z96.653 Presence of artificial knee joint, bilateral; Z96.641 Presence of right artificial hip joint; Z87.820 Personal history of traumatic brain injury; Z85.828 Personal history of other malignant neoplasm of skin; Z87.891 Personal history of nicotine dependence; Z79.01 Long term (current) use of anticoagulants
CPT/HCPCS: 99284; 12011; 90471; 70450; 72125; 73030; 73564; 90715

== ENCOUNTER → 2024-10-01 09:54 | Outpatient (REF) | payer MEDICARE, OTHER, SELFPAY | LOC: WOUND 09:54 | PROVIDERS: ATTENDING PHYSICIAN Surgery; FAMILY PHYSICIAN Emergency Medicine | DX: L97.223 Non-pressure chronic ulcer of left calf with necrosis of muscle (principal); S81.012A Laceration without foreign body, left knee, initial encounter; S01.80XA Unspecified open wound of other part of head, initial encounter; S61.411A Laceration without foreign body of right hand, initial encounter; S41.011A Laceration without foreign body of right shoulder, initial encounter; I87.2 Venous insufficiency (chronic) (peripheral); R60.9 Edema, unspecified; I48.21 Permanent atrial fibrillation; N18.31 Chronic kidney disease, stage 3a; Z79.01 Long term (current) use of anticoagulants; W19.XXXA Unspecified fall, initial encounter | CPT/HCPCS: 99213 ==

== ENCOUNTER → 2024-10-08 09:34 | Outpatient (REF) | payer MEDICARE, OTHER, SELFPAY | LOC: WOUND 09:34 | PROVIDERS: ATTENDING PHYSICIAN Surgery; FAMILY PHYSICIAN Emergency Medicine | DX: L97.223 Non-pressure chronic ulcer of left calf with necrosis of muscle (principal); S81.012A Laceration without foreign body, left knee, initial encounter; S51.811A Laceration without foreign body of right forearm, initial encounter; S61.411A Laceration without foreign body of right hand, initial encounter; S01.80XA Unspecified open wound of other part of head, initial encounter; S41.011A Laceration without foreign body of right shoulder, initial encounter; I87.2 Venous insufficiency (chronic) (peripheral); R60.9 Edema, unspecified; I48.21 Permanent atrial fibrillation; N18.31 Chronic kidney disease, stage 3a; Z79.01 Long term (current) use of anticoagulants; W19.XXXA Unspecified fall, initial encounter; Y92.015 Private garage of single-family (private) house as the place of occurrence of the external cause | CPT/HCPCS: 10140; 99213 ==

== ENCOUNTER → 2024-10-15 13:09 | Outpatient (REF) | payer MEDICARE, OTHER, SELFPAY | LOC: WOUND 13:09 | PROVIDERS: ATTENDING PHYSICIAN Surgery; FAMILY PHYSICIAN Emergency Medicine | DX: L97.223 Non-pressure chronic ulcer of left calf with necrosis of muscle (principal); S81.012A Laceration without foreign body, left knee, initial encounter; S51.811A Laceration without foreign body of right forearm, initial encounter; S61.411A Laceration without foreign body of right hand, initial encounter; S01.80XA Unspecified open wound of other part of head, initial encounter; S41.011A Laceration without foreign body of right shoulder, initial encounter; I87.2 Venous insufficiency (chronic) (peripheral); R60.9 Edema, unspecified; I48.21 Permanent atrial fibrillation; N18.31 Chronic kidney disease, stage 3a; Z79.01 Long term (current) use of anticoagulants; W19.XXXA Unspecified fall, initial encounter | CPT/HCPCS: 11042 ==

== ENCOUNTER → 2024-10-16 18:34 | Outpatient (REF) | payer MEDICARE, OTHER, SELFPAY | LOC: MRI 3T 18:34 | PROVIDERS: ATTENDING PHYSICIAN Emergency Medicine | DX: S09.90XA Unspecified injury of head, initial encounter (principal); Z79.01 Long term (current) use of anticoagulants; R51.9 Headache, unspecified; Z87.828 Personal history of other (healed) physical injury and trauma | CPT/HCPCS: 70553; A9575 ==

== ENCOUNTER → 2024-10-22 08:16 | Outpatient (REF) | payer MEDICARE, OTHER, SELFPAY | LOC: WOUND 08:16 | PROVIDERS: ATTENDING PHYSICIAN Surgery; FAMILY PHYSICIAN Emergency Medicine | DX: S61.411A Laceration without foreign body of right hand, initial encounter (principal); S51.811A Laceration without foreign body of right forearm, initial encounter; S41.011A Laceration without foreign body of right shoulder, initial encounter; I87.2 Venous insufficiency (chronic) (peripheral); R60.9 Edema, unspecified; I48.21 Permanent atrial fibrillation; N18.31 Chronic kidney disease, stage 3a; Z79.01 Long term (current) use of anticoagulants; X58.XXXA Exposure to other specified factors, initial encounter | CPT/HCPCS: 11042 ==

== ENCOUNTER → 2024-10-29 09:00 | Outpatient (REF) | payer MEDICARE, OTHER, SELFPAY | LOC: WOUND 09:00 | PROVIDERS: ATTENDING PHYSICIAN Surgery; FAMILY PHYSICIAN Emergency Medicine | DX: S61.411A Laceration without foreign body of right hand, initial encounter (principal); S51.811A Laceration without foreign body of right forearm, initial encounter; S41.011A Laceration without foreign body of right shoulder, initial encounter; I87.2 Venous insufficiency (chronic) (peripheral); R60.9 Edema, unspecified; I48.21 Permanent atrial fibrillation; N18.31 Chronic kidney disease, stage 3a; Z79.01 Long term (current) use of anticoagulants; W19.XXXA Unspecified fall, initial encounter | CPT/HCPCS: 99213 ==

== ENCOUNTER → 2024-11-05 09:06 | Outpatient (REF) | payer MEDICARE, OTHER, SELFPAY | LOC: WOUND 09:06 | PROVIDERS: ATTENDING PHYSICIAN Surgery; FAMILY PHYSICIAN Emergency Medicine | DX: S61.411A Laceration without foreign body of right hand, initial encounter (principal); S51.811A Laceration without foreign body of right forearm, initial encounter; S41.011A Laceration without foreign body of right shoulder, initial encounter; I87.2 Venous insufficiency (chronic) (peripheral); R60.9 Edema, unspecified; Z79.01 Long term (current) use of anticoagulants; I48.21 Permanent atrial fibrillation; N18.31 Chronic kidney disease, stage 3a; X58.XXXA Exposure to other specified factors, initial encounter | CPT/HCPCS: 99212 ==

== ENCOUNTER → 2024-11-26 10:35 | Outpatient (REF) | payer MEDICARE, OTHER, SELFPAY | LOC: WOUND 10:35 | PROVIDERS: ATTENDING PHYSICIAN Surgery; FAMILY PHYSICIAN Emergency Medicine | DX: L97.222 Non-pressure chronic ulcer of left calf with fat layer exposed (principal); I87.2 Venous insufficiency (chronic) (peripheral); R60.9 Edema, unspecified; I48.21 Permanent atrial fibrillation; N18.31 Chronic kidney disease, stage 3a; Z79.01 Long term (current) use of anticoagulants | CPT/HCPCS: 97597; 99213 ==

== ENCOUNTER → 2024-12-04 09:01 | Outpatient (REF) | payer MEDICARE, OTHER, SELFPAY | LOC: WOUND 09:01 | PROVIDERS: ATTENDING PHYSICIAN Surgery; FAMILY PHYSICIAN Emergency Medicine | DX: L97.222 Non-pressure chronic ulcer of left calf with fat layer exposed (principal); I87.2 Venous insufficiency (chronic) (peripheral); R60.9 Edema, unspecified; I48.21 Permanent atrial fibrillation; N18.31 Chronic kidney disease, stage 3a | CPT/HCPCS: 99213 ==

== ENCOUNTER → 2024-12-06 12:42 | Outpatient (REF) | payer MEDICARE, OTHER, SELFPAY ==
[2024-12-06 15:50] LABS: Blood Urea Nitrogen 54 mg/dl (9-20); Calcium 9.2 mg/dl (8.4-10.2); Carbon Dioxide 29 mmol/L (22-30); Chloride 105 mmol/L (98-107); Glucose 92 mg/dl (70-99); Magnesium 2.3 mg/dl (1.6-2.3); Potassium 4.2 mmol/L (3.5-5.1); Sodium 142 mmol/L (135-145)
== END ==
LOC: HWLAB 12:42
PROVIDERS: ATTENDING PHYSICIAN Emergency Medicine
DX: M25.542 Pain in joints of left hand (principal); M25.541 Pain in joints of right hand
CPT/HCPCS: 36415; 73130; 80048; 83735

== ENCOUNTER → 2024-12-17 09:06 | Outpatient (REF) | payer MEDICARE, OTHER, SELFPAY | LOC: WOUND 09:06 | PROVIDERS: ATTENDING PHYSICIAN Surgery; FAMILY PHYSICIAN Emergency Medicine | DX: L97.222 Non-pressure chronic ulcer of left calf with fat layer exposed (principal); I87.2 Venous insufficiency (chronic) (peripheral); R60.9 Edema, unspecified; I48.21 Permanent atrial fibrillation; N18.31 Chronic kidney disease, stage 3a | CPT/HCPCS: 99212 ==

== ENCOUNTER → 2024-12-18 10:31 | Outpatient (REF) | payer MEDICARE, OTHER, SELFPAY ==
[2024-12-18 12:40] LABS: Vitamin B12 754 pg/ml (239-931)
== END ==
LOC: HWLAB 10:31
PROVIDERS: ATTENDING PHYSICIAN Emergency Medicine
DX: M79.604 Pain in right leg (principal); M79.605 Pain in left leg; K51.90 Ulcerative colitis, unspecified, without complications
CPT/HCPCS: 36415; 82607

== ENCOUNTER → 2025-03-26 08:05 | Outpatient (REF) | payer MEDICARE, OTHER, SELFPAY | LOC: HWRCS 08:05 | PROVIDERS: ATTENDING PHYSICIAN Internal Medicine Cardiovascular Disease; FAMILY PHYSICIAN Emergency Medicine | DX: I50.32 Chronic diastolic (congestive) heart failure (principal) | CPT/HCPCS: 93306 ==

== ENCOUNTER 2025-04-09 21:42 | Emergency (ER) | payer MEDICARE, OTHER, SELFPAY ==
[2025-04-09 21:48] VITALS: BP 115/51
[2025-04-09 22:04] LABS: Hematocrit 40.7 % (39.0-52.0); Hemoglobin 14.2 g/dL (13.0-18.0); Mean Corp Hgb Conc. 34.9 g/dL (33.0-37.0); Mean Corpuscular Volume 93.8 fL (80.0-94.0); Nucleated Red Blood Cells % 0 % (-); Platelet Count 152 10^3/uL (130-400); Red Cell Dist. Width 13.4 % (11.5-14.5)
[2025-04-09 22:28] LABS: ALT (SGPT) 17 U/L (0-50); AST (SGOT) 22 U/L (17-59); Albumin 4.5 g/dl (3.5-5.0); Alkaline Phosphatase 95 U/L (38-126); Blood Urea Nitrogen 51 mg/dl (9-20); Calcium 8.8 mg/dl (8.4-10.2); Carbon Dioxide 27 mmol/L (22-30); Chloride 100 mmol/L (98-107); Glucose 103 mg/dl (70-99); Potassium 4.2 mmol/L (3.5-5.1); Sodium 136 mmol/L (135-145); Total Protein 7.3 g/dl (6.3-8.2); eGFR 36.21
--- NOTE | 2025-04-10 01:38 | ED.GENMED ---
History of Present Illness
General
Chief Complaint: Skin Problem
Source: patient
Exam Limitations: none
Time Seen by Provider: 04/10/25 01:37
History of Present Illness
History of Present Illness:
Note:
CHIEF COMPLAINT(S)
Leg wound with suspected infection.
HISTORY OF PRESENT ILLNESS
The patient is a 84-year-old male with pmh of afib on eliquis, CHF, CKD, peripheral venous disease who presents with a leg wound. The patient reports that he bumped his leg yesterday on the corner of a car door causing a wound that he dressed
himself. He reports that he is prone to getting skin tears. He has a skin tear on his arm from prior injury that is being managed by Dr. Luu from wound care. He denies any fevers at home. He reports that a few days ago, he noticed the wound
started to become painful with surrounding redness. He denies any purulent drainage, any difficulties with ambulating. The patient has no known drug allergies. He denies having any wounds on his foot, but he reports that he experiences swelling
which is possibly related to venous circulation issues. He denies any chest pain, shortness of breath, nausea or vomiting, abdominal symptoms.
PHYSICAL EXAM
General: Alert, no acute distress.
Skin: 4 cm by 4 cm skin tear noted to right lower leg with surrounding erythema, no purulent drainage, minimal serosanguineous fluid which was cultured
2+PT and DP pulses b/l
Neck: Supple, trachea midline.
Eye, Ears, Nose, and Throat: Oral mucosa moist.
Cardiovascular: Normal peripheral perfusion, no edema.
Respiratory: Respirations are non-labored.
Gastrointestinal: Abdomen nondistended.
Back: Normal range of motion, normal alignment.
Musculoskeletal: Normal range of motion; able to ambulate with some pain.
Neurological: Alert and oriented to person, place, time, and situation, no focal neurological deficit observed.
Psychiatric: Cooperative, appropriate mood & affect.
PROBLEM LIST
Acute: Infected leg wound
Chronic: Kidney disease
PLAN
- Start the patient on keflex for the suspected infection and administer the first dose in the clinic.
- Instruct the patient to apply antibiotic ointment and change the dressing.
- Refer the patient to a wound care center for follow-up and ongoing management.
- Advise the patient to elevate the leg at home to assist with venous circulation.
- Pediatric Registered Nurse the patient on the possible need for hospital admission if symptoms such as fever or increased redness/swelling do not improve with oral antibiotics.
- Dr. Kimble office will be contacted as part of the follow-up.
DIFFERENTIAL DIAGNOSIS
The Differential Diagnosis includes, in no particular order and is not limited to:
1. Cellulitis
2. Venous stasis dermatitis
3. Diabetic foot ulcer
4. Osteomyelitis
5. Deep vein thrombosis
6. Contact dermatitis
7. Erysipelas
8. Lymphangitis
9. Pyoderma gangrenosum
10. Soft tissue abscess
CHART REVIEW
Reviewed discharge summary from 08/12/24
MDM/DISPOSITION
The patient is a 84-year-old male with pmh of afib on eliquis, CHF, CKD, peripheral venous disease who presents with a leg wound. The patient reports that he bumped his leg yesterday on the corner of a car door causing a wound that he dressed
himself. He reports that he is prone to getting skin tears. Recently wound has become red and inflamed but no purulent drainage. History and physical exam consistent with infected skin tears. He has no wbc count no fever. His renal function is at
baseline. Patient will be discharged on keflex with strict return precautions. tetanus updated
Past History
Past History
ED Past Medical History: Arrthythmia (afib), Asthma, Cancer (Skin cancer), CHF, Valvular disease and Other (BPH, Brain bleed, Colitis, Concussion)
ED Past Surgical History: Orthopedic (Left and right knee replacement, right hip replacement. Right shoulder surgery) and Other (hernia sx, cataracts, Left retina detachment. )
Social History
Tobacco: Former smoker
Alcohol: Occasional
Drug: None
Personal:
Living: with family
Employment: Retired
Family History
Family History: Other (n/c)
Review of Systems
Review of Systems
All Other Systems: ROS reviewed and negative except as documented in HPI and ROS
Phy Exam
Physical Exam
Physical Exam:
see hpi
Course
Orders/Labs/Results
Orders:
Orders
04/09/25 21:58
Complete Blood Count/With Diff Urgent
Comprehensive Metabolic Panel Urgent
Lactic Acid Urgent
04/10/25 02:14
Cephalexin Monohydrate [Keflex] 500 mg PO NOW STA
04/10/25 02:19
Tetanus/Diphth/Acelpertussis [Adacel] 0.5 ml IM .ONCE ONE
04/10/25 02:43
Wound Culture [Wound/Abscess/Other Culture] Urgent
RONALD Source: Ulcer
Specimen Description:
Date Specimen was Collected: 04/10/25
Time Specimen was Collected: 02:18
Abnormal Lab Results
04/09/25
21:58
RBC 4.34 L 10^6/uL
(4.70-6.10)
MCH 32.7 H pg
(27.0-31.0)
Absolute Lymphs (auto) 0.6 L 10^3/uL
(1.2-3.4)
Absolute Monos (auto) 1.0 H 10^3/uL
(0.1-0.6)
Neutrophils % 77.4 H %
(42.2-75.2)
Lymphocytes % 7.7 L %
(20.5-51.1)
Monocytes % 11.7 H %
(1.7-9.3)
BUN 51 H mg/dl
(9-20)
Creatinine 1.8 H mg/dL
(0.7-1.3)
Glucose 103 H mg/dl
(70-99)
04/09/25 21:58
04/09/25 21:58
Vital Signs
Initial and Last Documented VS:
Initial Vital Signs
Temp Pulse Resp BP Pulse Ox
98.2 F 70 19 115/51 99
04/09/25 21:48 04/09/25 21:48 04/09/25 21:48 04/09/25 21:48 04/09/25 21:48
Last Documented Vital Signs
Temp Pulse Resp BP Pulse Ox
98.2 F 83 18 108/65 98
04/10/25 02:44 04/10/25 02:44 04/10/25 02:44 04/10/25 02:44 04/10/25 02:44
*Pulse Oximetry
SaO2: 99
Patient hypoxic: no
*Critical Care Note
Total Time (30-74mins, 75-104mins- exclusive of procedures): Not Applicable
ED Attending Note
-
Portions of this chart may have been created with voice recognition software.� Occasional wrong word or��sound alike� substitutions may have occurred due to the inherent limitations of voice recognition software.
Discharge Plan
Departure
Patient Disposition: Home (Routine Discharge)
Date of Disposition: 04/10/25
Time of Disposition: 02:17
Patient with high blood pressure during this ER visit?: Yes
Condition: Good
Discharge Problem:
Infected skin tear
Instructions: Taking care of cuts, scrapes, and puncture wounds, Wound care - ED (DC), BLOOD PRESSURE
Prescriptions:
New
cephalexin 500 mg capsule
500 mg PO TID 10 Days Qty: 30 0RF
No Action
fluticasone propionate 50 mcg/actuation [place],Suspension
1 spray INTRANASAL DAILYPRN PRN (Reason: allergies) Qty: 0
loratadine 10 MG tablet
20 mg PO HS
dutasteride 0.5 MG capsule
0.5 mg PO DAILY
spironolactone 25 mg tablet
25 mg PO HS
tamsulosin 0.4 mg capsule
0.4 mg PO DAILY
dapagliflozin propanediol [Farxiga] 10 mg tablet
10 mg PO DAILY
diltiazem HCl 180 mg Capsule,Extended Release 24 Hr
180 mg PO DAILY
halobetasol propionate 0.05 % cream
1 applic TOPICAL DAILYPRN PRN (Reason: skin issues)
cholecalciferol (vitamin D3) 25 mcg (1,000 unit) Tablet
25 mcg PO HS
mesalamine 0.375 gram capsule,extended release 24hr
1.5 g PO DAILY
PreserVision AREDS 2,148 mcg-113 mg-45 mg-17.4mg Tablet
1 tab PO DAILY
furosemide 80 mg tablet
80 mg PO BID
fexofenadine 180 mg Tablet
360 mg PO DAILY Qty: 0
Eliquis 2.5 mg Tablet
2.5 mg PO BID Qty: 60 0RF
atorvastatin 10 mg Tablet
10 mg PO HS
Dupixent Pen 300 mg/2 mL Pen Injector
300 mg SC Q2W
acetaminophen 650 mg Tablet Extended Release
1,300 mg PO [id number] PRN (Reason: mild pain)
pantoprazole 20 mg Tablet,Delayed Release (Dr/Ec)
20 mg PO DAILY
cyanocobalamin (vitamin B-12) 1,000 mcg Tablet, Sublingual
1,000 mcg SUBLINGUAL NOON
Systane (PF) 0.4-0.3 % Dropperette
1 drp BOTH EYES BID
doxycycline hyclate 100 mg capsule
100 mg PO BID 12 Days Qty: 24 0RF
cephalexin 500 mg capsule
500 mg PO Q6H 12 Days Qty: 48 0RF
Referrals:
Mark Luu MD [Provider Group] - Call in 1-3 days for appt
Alicia Frost MD [Family Provider, Internal Medicine]
Activity Restrictions/Additional Instructions:
Please change dressing once daily. Please follow up with Dr. Luu.
Antibiotic has been sent to your pharmacy.
PLEASE RETURN TO THE ER SHOULD YOU DEVELOP SPREADING OF THE REDNESS SURROUNDING YOUR WOUND, INCREASING PAIN, INABILITY TO AMBULATE, FEVERS OR CHILLS, NAUSEA OR VOMITING, CHEST PAIN OR SHORTNESS OF BREATH, OR ANY OTHER SIGNS OR SYMPTOMS WORRISOME TO
YOU.
Interventions
Interventions:
*Risk Screen - Suicide Last Done: 04/09/25 21:51
*General Assessment Last Done: 04/09/25 21:51
*Neglect/Abuse Screening Last Done: 04/09/25 21:51
*ED- Fall Risk Assessment Last Done: 04/10/25 03:01
*ED COVID-19 Vaccine History Last Done: 04/09/25 21:51
*ED Influenza Vaccine History Last Done: 04/09/25 21:51
*Nursing Disposition Last Done: 04/10/25 03:01
ED-Skin Assessment Last Done: 04/10/25 01:50
Discharge Date and Time
Discharge Date/Time: 04/10/25 03:02
Print Language: SAMMARINESE
[2025-04-10 02:44] VITALS: BP 108/65
[2025-04-10] MEDS: KEFLEX 500 MG PO (02:45)
[2025-04-10] MEDS: ADACEL 0.5 ML IM (02:48)
== END 2025-04-10 03:02 | disposition home or self-care (01) ==
LOC: EMR 21:42
PROVIDERS: Emergency Medicine; EMERGENCY PHYSICIAN Student in an Organized Health Care Education/Training Program; FAMILY PHYSICIAN Emergency Medicine
DX: S81.811A Laceration without foreign body, right lower leg, initial encounter (principal); L08.9 Local infection of the skin and subcutaneous tissue, unspecified; R03.0 Elevated blood-pressure reading, without diagnosis of hypertension; I48.91 Unspecified atrial fibrillation; I50.9 Heart failure, unspecified; N18.9 Chronic kidney disease, unspecified; I73.9 Peripheral vascular disease, unspecified; J45.909 Unspecified asthma, uncomplicated; N40.0 Benign prostatic hyperplasia without lower urinary tract symptoms; Z23 Encounter for immunization; Z79.01 Long term (current) use of anticoagulants; Z87.891 Personal history of nicotine dependence; Z85.828 Personal history of other malignant neoplasm of skin; Z87.820 Personal history of traumatic brain injury; Z96.653 Presence of artificial knee joint, bilateral; Z96.641 Presence of right artificial hip joint; W22.8XXA Striking against or struck by other objects, initial encounter
CPT/HCPCS: 99283; 90471; 80053; 83605; 85025; 87070; 87147; 87205; 90715

== ENCOUNTER → 2025-04-10 16:48 | Outpatient (REF) | payer MEDICARE, OTHER, SELFPAY ==
[2025-04-10 18:44] LABS: HDL Cholesterol 58 mg/dl; Iron 79 ug/dl (49-181); LDL Cholesterol, Calculated 43 mg/dl; Very Low Density Lipoprotein 17 mg/dl (0-30)
[2025-04-10 18:53] LABS: Total Iron Binding Capacity 332 ug/dl (261-462)
[2025-04-10 19:19] LABS: Ferritin 79.0 ng/ml (17.9-464.0)
[2025-04-10 19:34] LABS: Vitamin B12 622 pg/ml (239-931)
== END ==
LOC: CLAB 16:48
DX: R53.83 Other fatigue (principal); E78.2 Mixed hyperlipidemia; Z86.39 Personal history of other endocrine, nutritional and metabolic disease
CPT/HCPCS: 36415; 80061; 82607; 82728; 83540; 83550; 84443

== ENCOUNTER 2025-04-12 08:08 | Outpatient (REF) | payer MEDICARE, OTHER, SELFPAY | END 2025-04-12 23:59 | disposition home or self-care (01) | LOC: WOUND 08:08 | PROVIDERS: ATTENDING PHYSICIAN Surgery | DX: L97.212 Non-pressure chronic ulcer of right calf with fat layer exposed (principal); I48.21 Permanent atrial fibrillation; N18.31 Chronic kidney disease, stage 3a; Z79.01 Long term (current) use of anticoagulants | CPT/HCPCS: 11042; 97597; 99213 ==

== ENCOUNTER → 2025-04-19 09:06 | Outpatient (REF) | payer MEDICARE, OTHER, SELFPAY | LOC: WOUND 09:06 | PROVIDERS: ATTENDING PHYSICIAN Surgery | DX: L97.212 Non-pressure chronic ulcer of right calf with fat layer exposed (principal); I48.21 Permanent atrial fibrillation; N18.31 Chronic kidney disease, stage 3a; Z79.01 Long term (current) use of anticoagulants | CPT/HCPCS: 11042 ==

== ENCOUNTER → 2025-04-26 09:51 | Outpatient (REF) | payer MEDICARE, OTHER, SELFPAY | LOC: WOUND 09:51 | PROVIDERS: ATTENDING PHYSICIAN Surgery | DX: L97.212 Non-pressure chronic ulcer of right calf with fat layer exposed (principal); I48.21 Permanent atrial fibrillation; N18.31 Chronic kidney disease, stage 3a; Z79.01 Long term (current) use of anticoagulants | CPT/HCPCS: 11042 ==

== ENCOUNTER → 2025-05-06 13:30 | Outpatient (REF) | payer MEDICARE, OTHER, SELFPAY | LOC: WOUND 13:30 | PROVIDERS: ATTENDING PHYSICIAN Surgery | DX: L97.212 Non-pressure chronic ulcer of right calf with fat layer exposed (principal); I48.21 Permanent atrial fibrillation; N18.31 Chronic kidney disease, stage 3a; Z79.01 Long term (current) use of anticoagulants | CPT/HCPCS: 11042 ==

== ENCOUNTER 2025-05-09 12:32 | Outpatient (RCR) | payer MEDICARE, OTHER, SELFPAY | END 2025-05-09 23:59 | disposition home or self-care (01) | LOC: RPT 12:32 | PROVIDERS: ATTENDING PHYSICIAN Specialist; FAMILY PHYSICIAN Emergency Medicine | DX: M19.012 Primary osteoarthritis, left shoulder (principal); M75.02 Adhesive capsulitis of left shoulder; Z73.6 Limitation of activities due to disability; M54.2 Cervicalgia; R51.9 Headache, unspecified | CPT/HCPCS: 97110; 97112; 97140; 97162 ==

== ENCOUNTER → 2025-05-13 10:52 | Outpatient (REF) | payer MEDICARE, OTHER, SELFPAY | LOC: WOUND 10:52 | PROVIDERS: ATTENDING PHYSICIAN Surgery | DX: L97.212 Non-pressure chronic ulcer of right calf with fat layer exposed (principal); I48.21 Permanent atrial fibrillation; N18.31 Chronic kidney disease, stage 3a; Z79.01 Long term (current) use of anticoagulants | CPT/HCPCS: 11042 ==

== ENCOUNTER 2025-05-17 11:16 | Outpatient (REF) | payer MEDICARE, OTHER, SELFPAY | END 2025-05-17 23:59 | disposition home or self-care (01) | LOC: WOUND 11:16 | PROVIDERS: ATTENDING PHYSICIAN Surgery | DX: L97.212 Non-pressure chronic ulcer of right calf with fat layer exposed (principal); I48.21 Permanent atrial fibrillation; N18.31 Chronic kidney disease, stage 3a; Z79.01 Long term (current) use of anticoagulants | CPT/HCPCS: 11042 ==

== ENCOUNTER 2025-05-24 09:17 | Outpatient (REF) | payer MEDICARE, OTHER, SELFPAY | END 2025-05-24 23:59 | disposition home or self-care (01) | LOC: WOUND 09:17 | PROVIDERS: ATTENDING PHYSICIAN Surgery | DX: I48.21 Permanent atrial fibrillation (principal); N18.31 Chronic kidney disease, stage 3a; Z79.01 Long term (current) use of anticoagulants | CPT/HCPCS: 11042 ==

== ENCOUNTER 2025-05-30 09:44 | Outpatient (REF) | payer MEDICARE, OTHER, SELFPAY | END 2025-05-30 23:59 | disposition home or self-care (01) | LOC: WOUND 09:44 | PROVIDERS: ATTENDING PHYSICIAN Surgery | DX: L97.212 Non-pressure chronic ulcer of right calf with fat layer exposed (principal); I48.21 Permanent atrial fibrillation; N18.31 Chronic kidney disease, stage 3a; Z79.01 Long term (current) use of anticoagulants | CPT/HCPCS: 11042 ==

== ENCOUNTER 2025-06-05 06:39 | Outpatient (RCR) | payer MEDICARE, OTHER, SELFPAY | END 2025-06-05 23:59 | disposition home or self-care (01) | LOC: RPT 06:39 | PROVIDERS: ATTENDING PHYSICIAN Specialist; FAMILY PHYSICIAN Emergency Medicine | DX: M19.012 Primary osteoarthritis, left shoulder (principal); M75.02 Adhesive capsulitis of left shoulder; Z73.6 Limitation of activities due to disability; M54.2 Cervicalgia; R51.9 Headache, unspecified | CPT/HCPCS: 97110; 97112; 97140 ==

== ENCOUNTER 2025-06-17 09:04 | Outpatient (REF) | payer MEDICARE, OTHER, SELFPAY | END 2025-06-17 23:59 | disposition home or self-care (01) | LOC: WOUND 09:04 | PROVIDERS: ATTENDING PHYSICIAN Registered Nurse | DX: L97.212 Non-pressure chronic ulcer of right calf with fat layer exposed (principal); I48.21 Permanent atrial fibrillation; N18.31 Chronic kidney disease, stage 3a; Z79.01 Long term (current) use of anticoagulants | CPT/HCPCS: 97597 ==

== ENCOUNTER 2025-07-01 19:01 | Emergency (ER) | payer MEDICARE, OTHER, SELFPAY ==
[2025-07-01 19:05] VITALS: BP 160/66
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
[2025-07-01 21:31] VITALS: BP 134/92
== END 2025-07-01 21:40 | disposition home or self-care (01) ==
LOC: EMR 19:01
PROVIDERS: EMERGENCY PHYSICIAN Emergency Medicine
DX: S51.011A Laceration without foreign body of right elbow, initial encounter (principal); S51.012A Laceration without foreign body of left elbow, initial encounter; S81.012A Laceration without foreign body, left knee, initial encounter; R51.9 Headache, unspecified; W19.XXXA Unspecified fall, initial encounter; N40.0 Benign prostatic hyperplasia without lower urinary tract symptoms; J45.909 Unspecified asthma, uncomplicated; Z79.01 Long term (current) use of anticoagulants; Z87.891 Personal history of nicotine dependence; I48.91 Unspecified atrial fibrillation; Z87.820 Personal history of traumatic brain injury
CPT/HCPCS: 99284; 70450

== ENCOUNTER 2025-07-02 09:37 | Outpatient (REF) | payer MEDICARE, OTHER, SELFPAY | END 2025-07-02 23:59 | disposition home or self-care (01) | LOC: WOUND 09:37 | PROVIDERS: ATTENDING PHYSICIAN Registered Nurse | DX: L97.212 Non-pressure chronic ulcer of right calf with fat layer exposed (principal); L97.221 Non-pressure chronic ulcer of left calf limited to breakdown of skin; L98.A22 Non-pressure chronic ulcer of left forearm; I48.21 Permanent atrial fibrillation; N18.31 Chronic kidney disease, stage 3a; Z79.01 Long term (current) use of anticoagulants | CPT/HCPCS: 99213 ==

== ENCOUNTER 2025-07-07 17:28 | Emergency (ER) | payer MEDICARE, OTHER, SELFPAY ==
[2025-07-07 17:33] VITALS: BP 121/57
[2025-07-07 17:55] LABS: Hematocrit 39.3 % (39.0-52.0); Hemoglobin 13.6 g/dL (13.0-18.0); Mean Corp Hgb Conc. 34.6 g/dL (33.0-37.0); Mean Corpuscular Volume 93.6 fL (80.0-94.0); Nucleated Red Blood Cells % 0 % (-); Platelet Count 166 10^3/uL (130-400); Red Cell Dist. Width 14.1 % (11.5-14.5)
[2025-07-07 18:13] LABS: ALT (SGPT) 15 U/L (0-50); AST (SGOT) 20 U/L (17-59); Albumin 4.2 g/dl (3.5-5.0); Alkaline Phosphatase 74 U/L (38-126); Blood Urea Nitrogen 46 mg/dl (9-20); Calcium 9.2 mg/dl (8.4-10.2); Carbon Dioxide 23 mmol/L (22-30); Chloride 103 mmol/L (98-107); Glucose 137 mg/dl (70-99); Potassium 4.0 mmol/L (3.5-5.1); Sodium 136 mmol/L (135-145); Total Protein 7.1 g/dl (6.3-8.2); eGFR 41.70
--- NOTE | 2025-07-07 19:10 | ED.SKININJ ---
HPI-Injury
General
Chief Complaint: Skin Problem
Source: patient
Exam Limitations: none
Time Seen by Provider: 07/07/25 18:49
Nursing documentation reviewed up to this point in time: agreed with
History of Present Illness-Injury
Initial Injury comments:
84-year-old male with history of A-fib on Eliquis, CHF, BPH, tricuspid regurgitation, peripheral edema, stage III CKD, CVA, CAD presents for wound check and removal of Steri-Strips from left elbow wound from 6 days ago. He states he was seen by
wound care center but they said they could not remove the Steri-Strips and examine the wound. He has another appointment in 2 days at the wound care center. He denies fever or chills. He states he was holding his dog last night and something
smelled bad and he thought it was a dog but when the dog was no longer around he still smelled it and it he realized it was coming from his wound.
Past History
Past History
ED Past Medical History: Arrthythmia (afib), Asthma, Cancer (Skin cancer), CHF, Valvular disease and Other (BPH, Brain bleed, Colitis, Concussion)
ED Past Surgical History: Orthopedic (Left and right knee replacement, right hip replacement. Right shoulder surgery) and Other (hernia sx, cataracts, Left retina detachment. )
Social History
Tobacco: Former smoker
Alcohol: Occasional
Drug: None
Personal:
Living: with family
Employment: Retired
Family History
Family History: Other (n/c)
Review of Systems
Review of Systems
Allergies reviewed?: Yes
All Other Systems: ROS reviewed and negative except as documented in HPI and ROS
Phy Exam
Physical Exam
Physical Exam:
GENERAL: No acute distress. A&Ox3.
CONSTITUTIONAL: Afebrile.
RESPIRATORY: Regular respirations, nonlabored, lungs clear.
CARDIOVASCULAR: Regular rate and rhythm, no murmurs, no rubs.
MUSCULOSKELETAL: Moves with ease. Well perfused. Full ROM of LUE.
SKIN: Warm, dry, pink. Steri-Strips removed from left elbow wound. The wound appears to be healing well by secondary intention. There is mild odor and yellowish eschar, culture sent. Distal neurovascular intact. No significant swelling,
tenderness, no significant surrounding redness or warmth
PSYCH: Normal mood and affect. Well kept, interactive and appropriate
NEUROLOGIC: Awake, alert and oriented. No focal neurological deficits
Course
Orders/Labs/Results
Orders:
Orders
07/07/25 17:45
Complete Blood Count/With Diff Urgent
Comprehensive Metabolic Panel Urgent
07/07/25 19:26
Cephalexin Monohydrate [Keflex] 500 mg PO NOW STA
07/07/25 19:37
Wound Culture [Wound/Abscess/Other Culture] Urgent
RONALD Source: Elbow
Specimen Description: Left
Date Specimen was Collected: 07/07/25
Time Specimen was Collected: 19:33
Abnormal Lab Results
07/07/25
17:45
RBC 4.20 L 10^6/uL
(4.70-6.10)
MCH 32.4 H pg
(27.0-31.0)
Absolute Lymphs (auto) 0.5 L 10^3/uL
(1.2-3.4)
Absolute Monos (auto) 0.8 H 10^3/uL
(0.1-0.6)
Neutrophils % 76.6 H %
(42.2-75.2)
Lymphocytes % 6.9 L %
(20.5-51.1)
Monocytes % 12.0 H %
(1.7-9.3)
BUN 46 H mg/dl
(9-20)
Creatinine 1.6 H mg/dL
(0.7-1.3)
Glucose 137 H mg/dl
(70-99)
07/07/25 17:45
07/07/25 17:45
Vital Signs
Initial and Last Documented VS:
Initial Vital Signs
Temp Pulse Resp BP Pulse Ox
98.4 F 78 18 121/57 99
07/07/25 17:33 07/07/25 17:33 07/07/25 17:33 07/07/25 17:33 07/07/25 17:33
Last Documented Vital Signs
Temp Pulse Resp BP Pulse Ox
98.4 F 78 18 121/57 99
07/07/25 17:33 07/07/25 17:33 07/07/25 17:33 07/07/25 17:33 07/07/25 19:12
MDM/Problems Addressed
MDM/Problems Addressed:
84-year-old male with history of A-fib on Eliquis, CHF, BPH, tricuspid regurgitation, peripheral edema, stage III CKD, CVA, CAD presents for wound check and removal of Steri-Strips from left elbow wound from 6 days ago. He states he was seen by
wound care center but they said they could not remove the Steri-Strips and examine the wound. He has another appointment in 2 days at the wound care center. He denies fever or chills. He states he was holding his dog last night and something
smelled bad and he thought it was a dog but when the dog was no longer around he still smelled it and it he realized it was coming from his wound.
Afebrile, NAD
CBC normal
CMP: BUN/creat 46/1.6 consistent with his baseline CKD otherwise unremarkable
Steri-Strips easily removed, wound was cleansed with antibacterial soap and water, dried well, antibiotic ointment and nonstick and gauze dressing applied. Trell wrap applied on top of that for protection
He has an appointment with the wound care center in 2 days that he will keep. I instructed him to keep the present dressing on until then.
Wound culture pending
Started on Keflex
*Pulse Oximetry
SaO2: 99
Oxygen Mode of Delivery: Room air
Patient hypoxic: not evaluated
*Critical Care Note
Total Time (30-74mins, 75-104mins- exclusive of procedures): Not Applicable
ED Attending Note
-
Portions of this chart may have been created with voice recognition software.� Occasional wrong word or��sound alike� substitutions may have occurred due to the inherent limitations of voice recognition software.
Discharge Plan
Departure
Patient Disposition: Home (Routine Discharge)
Date of Disposition: 07/07/25
Time of Disposition: 19:37
Patient with high blood pressure during this ER visit?: No
Condition: Good
Discharge Problem:
Visit for wound check
Instructions: Wound Care ([facility])
Prescriptions:
New
cephalexin 500 mg capsule
500 mg PO QID 7 Days Qty: 28 0RF
No Action
fluticasone propionate 50 mcg/actuation [place],Suspension
1 spray INTRANASAL DAILYPRN PRN (Reason: allergies) Qty: 0
loratadine 10 MG tablet
20 mg PO HS
dutasteride 0.5 MG capsule
0.5 mg PO DAILY
spironolactone 25 mg tablet
25 mg PO HS
tamsulosin 0.4 mg capsule
0.4 mg PO DAILY
dapagliflozin propanediol [Farxiga] 10 mg tablet
10 mg PO DAILY
diltiazem HCl 180 mg Capsule,Extended Release 24 Hr
180 mg PO DAILY
halobetasol propionate 0.05 % cream
1 applic TOPICAL DAILYPRN PRN (Reason: skin issues)
cholecalciferol (vitamin D3) 25 mcg (1,000 unit) Tablet
25 mcg PO HS
mesalamine 0.375 gram capsule,extended release 24hr
1.5 g PO DAILY
PreserVision AREDS 2,148 mcg-113 mg-45 mg-17.4mg Tablet
1 tab PO DAILY
furosemide 80 mg tablet
80 mg PO BID
fexofenadine 180 mg Tablet
360 mg PO DAILY Qty: 0
Eliquis 2.5 mg Tablet
2.5 mg PO BID Qty: 60 0RF
atorvastatin 10 mg Tablet
10 mg PO HS
Dupixent Pen 300 mg/2 mL Pen Injector
300 mg SC Q2W
acetaminophen 650 mg Tablet Extended Release
1,300 mg PO [id number] PRN (Reason: mild pain)
pantoprazole 20 mg Tablet,Delayed Release (Dr/Ec)
20 mg PO DAILY
cyanocobalamin (vitamin B-12) 1,000 mcg Tablet, Sublingual
1,000 mcg SUBLINGUAL NOON
Systane (PF) 0.4-0.3 % Dropperette
1 drp BOTH EYES BID
doxycycline hyclate 100 mg capsule
100 mg PO BID 12 Days Qty: 24 0RF
cephalexin 500 mg capsule
500 mg PO Q6H 12 Days Qty: 48 0RF
cephalexin 500 mg capsule
500 mg PO TID 10 Days Qty: 30 0RF
Referrals:
UNKNOWN - PT DOES,NOT KNOW [Unknown Provider]
[facility] [[facility] - Keep scheduled appt
Activity Restrictions/Additional Instructions:
As we discussed, keep the current dressing on, clean and dry until your wound care visit in 2 days.
I sent a prescription to your pharmacy for the antibiotic Keflex to take 4 times a day for 7 days.
Interventions
Interventions:
*Nursing Disposition Last Done: 07/07/25 19:50
ED-Skin Assessment Last Done: 07/07/25 19:06
Discharge Date and Time
Discharge Date/Time: 07/07/25 19:50
Print Language: KAZAKH
[2025-07-07] MEDS: KEFLEX 500 MG PO (19:36)
== END 2025-07-07 19:50 | disposition home or self-care (01) ==
LOC: EMR 17:28
PROVIDERS: EMERGENCY PHYSICIAN Emergency Medicine
DX: L98.8 Other specified disorders of the skin and subcutaneous tissue (principal); Z48.00 Encounter for change or removal of nonsurgical wound dressing; I48.91 Unspecified atrial fibrillation; I50.9 Heart failure, unspecified; J45.909 Unspecified asthma, uncomplicated; N18.30 Chronic kidney disease, stage 3 unspecified; I07.1 Rheumatic tricuspid insufficiency; I25.10 Atherosclerotic heart disease of native coronary artery without angina pectoris; Z79.01 Long term (current) use of anticoagulants; Z86.73 Personal history of transient ischemic attack (TIA), and cerebral infarction without residual deficits; Z87.891 Personal history of nicotine dependence
CPT/HCPCS: 99283; 80053; 85025; 87070; 87147; 87186; 87205

== ENCOUNTER 2025-07-08 07:04 | Outpatient (RCR) | payer MEDICARE, OTHER, SELFPAY | END 2025-07-08 23:59 | disposition home or self-care (01) | LOC: RPT 07:04 | PROVIDERS: ATTENDING PHYSICIAN Specialist; FAMILY PHYSICIAN Emergency Medicine | DX: M19.012 Primary osteoarthritis, left shoulder (principal); M75.02 Adhesive capsulitis of left shoulder; Z73.6 Limitation of activities due to disability; M54.2 Cervicalgia; R51.9 Headache, unspecified | CPT/HCPCS: 97110; 97112; 97140 ==

== ENCOUNTER 2025-07-09 09:01 | Outpatient (REF) | payer MEDICARE, OTHER, SELFPAY | END 2025-07-09 23:59 | disposition home or self-care (01) | LOC: WOUND 09:01 | PROVIDERS: ATTENDING PHYSICIAN Registered Nurse; FAMILY PHYSICIAN Student in an Organized Health Care Education/Training Program | DX: L97.212 Non-pressure chronic ulcer of right calf with fat layer exposed (principal); L97.221 Non-pressure chronic ulcer of left calf limited to breakdown of skin; L98.A22 Non-pressure chronic ulcer of left forearm; I48.21 Permanent atrial fibrillation; N18.31 Chronic kidney disease, stage 3a; Z79.01 Long term (current) use of anticoagulants | CPT/HCPCS: 99213 ==